=== PATIENT | female | born 1940 | race Caucasian/White ===

== ENCOUNTER 2024-05-07 14:39 | Observation (INO) | payer MEDICARE, SELFPAY ==
[2024-05-07] VITALS (13 sets, daily range): BP systolic 115–178; BP diastolic 54–96; BMI 23.4
--- NOTE | 2024-05-07 10:01 | ED.CVA ---
ED Provider Triage
<Kristin Kenny PA-C - Last Filed: 05/07/24 10:06>
-
Patient seen by provider in Triage?: Seen in Triage
Attestation: A medical screening examination has been initiated by a qualified medical provider. Based on the assessment performed at this time, it has been determined that an emergent medical condition may exist and the patient has been informed
that further medical evaluation and possible additional diagnostic testing may be needed.
HPI: 83yoF presenting after an episode of speech disturbance. Started at 8:45am. Was speaking with someone and couldn't get out her words. 'like a garbled mess.' Lasted about a minute. Now completely resolved. Last admitted in March 2023 for
afib. She was started on Eliquis at that time but she is no longer taking this. Also c/o URI symptoms since Monday.
GENERAL: Alert , in no apparent distress
EYE: No visual abnormalities.
NECK: Trachea midline
ENT: No visible abnormalities.
LUNGS: No acute respiratory distress
NEUROLOGICAL: Alert and oriented
SKIN: Skin intact. No visible changes.
MUSCULOSKELETAL: Moving extremities normally
PSYCH: Normal and appropriate interaction.
This is a medical evaluation conducted in person to initiate diagnostic evaluation and provide initial therapeutics. Please see further documentation by the treating clinician.
CBC, CMP, EKG, COVID/flu swab, and CT head ordered.
History of Present Illness
<Kristin Kenny PA-C - Last Filed: 05/07/24 10:06>
General
Chief Complaint: CVA/TIA Symptoms
Time Seen by Provider: 05/07/24 11:55
<Thor Weinstein MD - Last Filed: 05/08/24 08:34>
General
Source: patient and family
Exam Limitations: none
Nursing documentation reviewed up to this point in time: agreed with
Onset of Stroke Symptoms
Onset of symptoms known: Yes
Date of onset of symptoms: 05/07/24
History of Present Illness
History of Present Illness:
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
which occurred on 3 separate occasions, with spontaneous resolution. Denies headache. Denies difficulty swallowing. Denies dizziness. Denies blurred vision. Denies loss of sensation or weakness. Of note, patient states that she has had cough,
congestion, along with decreased appetite over the past 4 days. Denies nausea, vomiting, or diarrhea.
Past History
<Kristin Kenny PA-C - Last Filed: 05/07/24 10:06>
Past History
ED Past Medical History: CVA and HTN
ED Past Surgical History: Appendectomy, Gynecological and Tonsilectomy
Social History
Tobacco: Non-smoker
Alcohol: None
Drug: None
Personal:
Living: with family
Employment: Retired
Family History
Family History: Other (stroke in elderly grandparents)
Review of Systems
<Thor Weinstein MD - Last Filed: 05/08/24 08:34>
Review of Systems
Allergies reviewed?: Yes
All Other Systems: ROS reviewed and negative except as documented in HPI and ROS
Constitutional: Denies fever
EENT: Reports no symptoms
Respiratory: Reports cough and trouble breathing
Cardiac: Reports no symptoms; Denies chest pain, palpitations or syncope
ABD/GI: Reports no symptoms; Denies vomiting or diarrhea
Musculoskeletal: Reports no symptoms
Skin: Reports no symptoms
Neurological: Reports other (Garbled speech)
Phy Exam
<Thor Weinstein MD - Last Filed: 05/08/24 08:34>
Physical Exam
Physical Exam:
Physical Exam
General: no apparent distress, not acutely ill. afebrile.
Head: nc/at. eomi
Neck: supple. normal range of motion.
Heart: s1/s2 regular rate and rhythm, no murmur.
Lungs: no acute respiratory distress. clear bilaterally
Abdomen: normal bowel sounds. not tender.
Neuro: alert and oriented x 3. no focal sensory/motor deficit. normal speech.
Skin: no rash
Psychiatric: well kept. interactive and cooperative
Extremities: no edema. no calf tenderness.
Course
<Kristin Kenny PA-C - Last Filed: 05/07/24 10:06>
Orders/Labs/Results
Orders:
Orders
05/07/24 10:05
Electrocardiogram (*1) Urgent
Reason for Study: TIA/Stroke
CT Head W/o Iv Contrast Urgent
Comment:
Reason For Exam: Transient speech disturbance
EKG- Treatment ONCE
05/07/24 10:08
COVID-19 Antigen Urgent
Source: Nasal Swab
Complete Blood Count/With Diff Urgent
Comprehensive Metabolic Panel Urgent
NT-proBNP Urgent
Comment: ADD ON
Influenza A+B Rapid Molecular Urgent
OMKAR Source: Nasal Swab
Specimen Description:
05/07/24 12:18
CR Chest - 2 Views Urgent
Comment:
Reason For Exam: cough/sob, flu +
05/07/24 12:19
Add On- LAB Urgent
Tests Added?: ProBNP
05/07/24 13:05
NEUROLOGY CONSULT Urgent
Consulting Provider: Carey George
Was physician already notified: Yes
Reason for consult: slurred speech
05/07/24 13:22
Aspirin Chewable [Low Strength Aspirin] 81 mg PO NOW STA
Clopidogrel Bisulfate [Plavix] 300 mg PO NOW STA
05/07/24 13:47
Admit/Transfer Patient As Directed
Co-Sign Provider:
Level of Care: Observation services
Assign to:: Telemetry
Physician / Group: htay
Diagnosis: Acute Influenza A abnormal speech evaluation for TIA/CVA
Reason for Telemetry: CVA/TIA
Date to Stop Telemetry: 05/10/24
Time to Stop Telemetry: 11:00
Reason for Hospitalization: Acute Influenza A
abnormal speech evaluation for TIA/CVA
05/07/24 13:51
Code Status As Directed
Resuscitation Status: Full Code
05/07/24 14:05
Ipratropium/Albuterol Sulfate [Duoneb] 3 ml .ROUTE .STK-MED ONE
05/07/24 14:31
Ipratropium/Albuterol Sulfate [Duoneb] 3 ml INH R NOW ONE
05/07/24 14:48
DIETARY CONSULT Routine
Reason for Consult: stroke/TIA
05/07/24 17:23
Acetaminophen [Tylenol/Feverall] 650 mg RECTAL Q4HPRN PRN
Acetaminophen [Tylenol] 650 mg PO Q4HPRN PRN
Oseltamivir Phosphate [Tamiflu] 75 mg PO NOW STA
05/07/24 17:23
Case Management Consult ONCE
Case Management Consult: Discharge Planning
Comment: stroke/tia
Ceramics Teacher Urgent
Activity As Directed
Activity Level: With Assistance
NIH Stroke Scale As Directed
Directions: Per protocol
Comment: every shift and with any change in condition or mental status
Neurological Checks As Directed
Frequency: q4h
Additional Instructions:: q4h x 24h upon admission to the floor, then qshift & with any change in condition
and mental status
Patient Education As Directed
Type: Stroke education packet
Comment: provide to patient and family
Pneumatic Compression Sleeves As Directed
Type: Knee high
Vital Signs As Directed
Frequency: Per unit guidelines
Ot Eval And Treat Routine
Pt Eval And Treat Routine
Activity Level: Encourage Progressive Amb
Speech Therapy Eval & Treat Routine
DX Deep Vein Thrombosis Video Routine
05/07/24 17:57
Comprehensive Metabolic Panel Routine
Glycohemoglobin (HgbA1c) Routine
05/07/24 18:00
Atorvastatin [Lipitor] 40 mg PO QPM
05/08/24 07:40
Cardiovascular Evaluation IN AM
Complete Blood Count/No Diff IN AM
05/08/24 08:00
Amlodipine [Norvasc] 5 mg PO DAILY
Aspirin Chewable [Low Strength Aspirin] 81 mg PO DAILY
Clopidogrel Bisulfate [Plavix] 75 mg PO DAILY
Oseltamivir Phosphate [Tamiflu] 75 mg PO BID
05/10/24 11:00
DC Protocol for Telemetry ONCE
Abnormal Lab Results
05/07/24
10:08
MCH 31.7 H pg
(27.0-31.0)
MPV 11.3 H fL
(7.4-10.4)
Absolute Lymphs (auto) 0.7 L 10^3/uL
(1.2-3.4)
Neutrophils % 78.8 H %
(42.2-75.2)
Lymphocytes % 9.2 L %
(20.5-51.1)
BUN 20 H mg/dl
(7-17)
Glucose 109 H mg/dl
(70-99)
Calcium 8.3 L mg/dl
(8.4-10.2)
05/07/24 10:08
05/07/24 10:08
Vital Signs
Initial and Last Documented VS:
Initial Vital Signs
Temp Pulse Resp BP Pulse Ox
98.5 F 93 18 165/62 95
05/07/24 10:01 05/07/24 10:01 05/07/24 10:01 05/07/24 10:01 05/07/24 10:01
Last Documented Vital Signs
Temp Pulse Resp BP Pulse Ox
99.2 F 82 18 137/68 94
05/08/24 03:16 05/08/24 03:16 05/08/24 03:16 05/08/24 03:16 05/08/24 03:16
<Thor Weinstein MD - Last Filed: 05/08/24 08:34>
Orders/Labs/Results
Orders:
Orders
05/07/24 10:05
Electrocardiogram (*1) Urgent
Reason for Study: TIA/Stroke
CT Head W/o Iv Contrast Urgent
Comment:
Reason For Exam: Transient speech disturbance
EKG- Treatment ONCE
05/07/24 10:08
COVID-19 Antigen Urgent
Source: Nasal Swab
Complete Blood Count/With Diff Urgent
Comprehensive Metabolic Panel Urgent
NT-proBNP Urgent
Comment: ADD ON
Influenza A+B Rapid Molecular Urgent
OMKAR Source: Nasal Swab
Specimen Description:
05/07/24 12:18
CR Chest - 2 Views Urgent
Comment:
Reason For Exam: cough/sob, flu +
05/07/24 12:19
Add On- LAB Urgent
Tests Added?: ProBNP
05/07/24 13:05
NEUROLOGY CONSULT Urgent
Consulting Provider: Carey George
Was physician already notified: Yes
Reason for consult: slurred speech
05/07/24 13:22
Aspirin Chewable [Low Strength Aspirin] 81 mg PO NOW STA
Clopidogrel Bisulfate [Plavix] 300 mg PO NOW STA
05/07/24 13:47
Admit/Transfer Patient As Directed
Co-Sign Provider:
Level of Care: Observation services
Assign to:: Telemetry
Physician / Group: htay
Diagnosis: Acute Influenza A abnormal speech evaluation for TIA/CVA
Reason for Telemetry: CVA/TIA
Date to Stop Telemetry: 05/10/24
Time to Stop Telemetry: 11:00
Reason for Hospitalization: Acute Influenza A
abnormal speech evaluation for TIA/CVA
05/07/24 13:51
Code Status As Directed
Resuscitation Status: Full Code
05/07/24 14:05
Ipratropium/Albuterol Sulfate [Duoneb] 3 ml .ROUTE .STK-MED ONE
05/07/24 14:31
Ipratropium/Albuterol Sulfate [Duoneb] 3 ml INH R NOW ONE
05/07/24 14:48
DIETARY CONSULT Routine
Reason for Consult: stroke/TIA
05/07/24 17:23
Acetaminophen [Tylenol/Feverall] 650 mg RECTAL Q4HPRN PRN
Acetaminophen [Tylenol] 650 mg PO Q4HPRN PRN
Oseltamivir Phosphate [Tamiflu] 75 mg PO NOW STA
05/07/24 17:23
Case Management Consult ONCE
Case Management Consult: Discharge Planning
Comment: stroke/tia
Ceramics Teacher Urgent
Activity As Directed
Activity Level: With Assistance
NIH Stroke Scale As Directed
Directions: Per protocol
Comment: every shift and with any change in condition or mental status
Neurological Checks As Directed
Frequency: q4h
Additional Instructions:: q4h x 24h upon admission to the floor, then qshift & with any change in condition
and mental status
Patient Education As Directed
Type: Stroke education packet
Comment: provide to patient and family
Pneumatic Compression Sleeves As Directed
Type: Knee high
Vital Signs As Directed
Frequency: Per unit guidelines
Ot Eval And Treat Routine
Pt Eval And Treat Routine
Activity Level: Encourage Progressive Amb
Speech Therapy Eval & Treat Routine
DX Deep Vein Thrombosis Video Routine
05/07/24 17:57
Comprehensive Metabolic Panel Routine
Glycohemoglobin (HgbA1c) Routine
05/07/24 18:00
Atorvastatin [Lipitor] 40 mg PO QPM
05/08/24 07:40
Cardiovascular Evaluation IN AM
Complete Blood Count/No Diff IN AM
05/08/24 08:00
Amlodipine [Norvasc] 5 mg PO DAILY
Aspirin Chewable [Low Strength Aspirin] 81 mg PO DAILY
Clopidogrel Bisulfate [Plavix] 75 mg PO DAILY
Oseltamivir Phosphate [Tamiflu] 75 mg PO BID
05/10/24 11:00
DC Protocol for Telemetry ONCE
Abnormal Lab Results
05/07/24
10:08
MCH 31.7 H pg
(27.0-31.0)
MPV 11.3 H fL
(7.4-10.4)
Absolute Lymphs (auto) 0.7 L 10^3/uL
(1.2-3.4)
Neutrophils % 78.8 H %
(42.2-75.2)
Lymphocytes % 9.2 L %
(20.5-51.1)
BUN 20 H mg/dl
(7-17)
Glucose 109 H mg/dl
(70-99)
Calcium 8.3 L mg/dl
(8.4-10.2)
05/07/24 10:08
05/07/24 10:08
Vital Signs
Initial and Last Documented VS:
Initial Vital Signs
Temp Pulse Resp BP Pulse Ox
98.5 F 93 18 165/62 95
05/07/24 10:01 05/07/24 10:01 05/07/24 10:01 05/07/24 10:01 05/07/24 10:01
Last Documented Vital Signs
Temp Pulse Resp BP Pulse Ox
99.2 F 82 18 137/68 94
05/08/24 03:16 05/08/24 03:16 05/08/24 03:16 05/08/24 03:16 05/08/24 03:16
<Thor Weinstein MD - Last Filed: 05/08/24 08:34>
MDM/Problems Addressed
MDM/Problems Addressed:
History and exam concerning for potential recurrent TIA versus CVA, although symptoms can also be driven by current flulike symptoms.
Discussed with on-call neurology, who recommends admitting patient for further evaluation and treatment, and starting her on 81 mg aspirin and Plavix load 300 mg.
Patient remains asymptomatic during observation in ED.
<Thor Weinstein MD - Last Filed: 05/08/24 08:34>
*EKG
Interpreted by ED Provider?: Yes
EKG Intrepretation Date: 05/07/24
Heart Rate: 80
Rate: normal
Rhythm: sinus
[place]: left axis deviation
Interval: normal interval
QRS Pattern: left bundle branch block
*Critical Care Note
Total Time (30-74mins, 75-104mins- exclusive of procedures): Not Applicable
ED Attending Note
<Kristin Kenny PA-C - Last Filed: 05/07/24 10:06>
-
Portions of this chart may have been created with voice recognition software.� Occasional wrong word or��sound alike� substitutions may have occurred due to the inherent limitations of voice recognition software.
Discharge Plan
Departure
Patient Disposition: Admit
Date of Disposition: 05/07/24
Time of Disposition: 13:25
Admit to: Telemetry
Presentation/result/management discussed w/ accepting MD/DO: Hospitalist
Discharge Problem:
Influenza, Brain TIA
Interventions
Interventions:
*Risk Screen - Suicide Last Done: 05/07/24 21:07
*General Assessment Last Done: 05/07/24 10:01
*Neglect/Abuse Screening Last Done: 05/07/24 10:01
ED- Fall Risk Assessment Last Done: 05/07/24 20:37
*ED COVID-19 Vaccine History Last Done: 05/07/24 21:07
*Nursing Disposition Last Done: 05/07/24 20:37
ED- Pulmonary Assessment Last Done: 05/07/24 13:55
ED- Neurological Assessment Last Done: 05/07/24 16:42
ED- Cardiac Assessment Last Done: 05/07/24 13:55
ED Swallowing Screen Last Done: 05/07/24 13:30
Discharge Date and Time
Discharge Date/Time: 05/07/24 20:38
[2024-05-07 10:32] LABS: COVID-19 Antigen Negative (Negative)
[2024-05-07 10:33] LABS: % Basophils 0.5 % (0-2); % Eosinophils 2.9 % (0-6); % Immature Granulocytes 0.4 % (0-0.5); % Lymphocytes 9.2 % (20.5-51.1); % Monocytes 8.2 % (1.7-9.3); % Neutrophils 78.8 % (42.2-75.2); Absolute Eosinophils 0.2 10^3/uL (0-0.7); Absolute Lymphocytes 0.7 10^3/uL (1.2-3.4); Absolute Monocytes 0.6 10^3/uL (0.1-0.6); Absolute Neutrophils 5.9 10^3/uL (1.4-6.5); Hemoglobin 13.9 g/dL (12.0-16.0); Mean Corp Hgb Conc. 34.8 g/dL (33.0-37.0); Mean Corpuscular Hgb 31.7 pg (27.0-31.0); Mean Corpuscular Volume 91.1 fL (81.0-99.0); Mean Platelet Volume 11.3 fL (7.4-10.4); Nucleated Red Blood Cells % 0 %; Platelet Count 209 10^3/uL (130-400); Red Blood Cell Count 4.39 10^6/uL (4.20-5.40); Red Cell Dist. Width 13.4 % (11.5-14.5); White Blood Cell Count 7.5 10^3/uL (4.8-10.8)
[2024-05-07 10:46] LABS: ALT (SGPT) 16 U/L (0-35); AST (SGOT) 27 U/L (14-36); Alkaline Phosphatase 75 U/L (38-126); Blood Urea Nitrogen 20 mg/dl (7-17); Calcium 8.3 mg/dl (8.4-10.2); Carbon Dioxide 24 mmol/L (22-30); Chloride 99 mmol/L (98-107); Glucose 109 mg/dl (70-99); Potassium 3.8 mmol/L (3.5-5.1); Sodium 135 mmol/L (135-145); Total Bilirubin 1.3 mg/dl (0.2-1.3); Total Protein 6.8 g/dl (6.3-8.2); eGFR > 60.00
[2024-05-07] MEDS: PLAVIX 300 MG PO (13:41)
[2024-05-07] MEDS: LOW STRENGTH ASPIRIN 81 MG PO (13:41)
--- NOTE | 2024-05-07 13:41 | HPS.HSE ---
Family Physician
-
Family Physician: Kilo Webb PA-C
Chief Complaint
-
slurred speech , URTI symtoms
History of Present Illness
82F HX Prx AF on Eliquis , HTN, CVA with residual right lower leg weakness, currently NOT on any aspirin/Plavix, nor any AC seen at ER:
- sudden onset of 'garbled speech', while speaking to her friend at this morning,
- recurred on 3 separate occasions, with spontaneous resolution.
- she has had cough, congestion, along with decreased appetite over the past 4 days.
POS Flu A at ER
ROS
Denies headache. Denies difficulty swallowing. Denies dizziness. Denies blurred vision. Denies loss of sensation or weakness. Denies nausea, vomiting, or diarrhea.
Medical History
Past Medical History
Past Medical History: Reports Arrhythmia (Prx AF on Eliquis ), CVA and HTN
Past Surgical History: Reports Orthopedic (Recent left hip surgery)
Social History
Tobacco: Non-smoker
Alcohol: None
Drug: None
Personal:
Living: With Family
Employment: Retired
Family History
Family History: Not pertinent
Allergies / Home Medications
Allergies reflects when Allergies were last updated in [facility].
Home Medications with original date entered in [facility] [facility]
Allergy/Medication List:
Allergies
Allergy/AdvReac Type Severity Reaction Status Date / Time
Sulfa (Sulfonamide Allergy WEAKNESS Verified 03/23/23 04:40
Antibiotics)
Home Medications
cranberry vnwo-A-tdvkfjiz coag 450 mg-30 mg-50 million cell tablet (P[place]ozwgld-Iunjucnsu-[place]mb[place] C) 1 ea PO DAILY 11/20/20
amlodipine 2.5 mg tablet (Norvasc) 2.5 mg PO DAILY 03/23/23
aspirin 81 mg tablet 81 mg PO BID 03/23/23
nebivolol 5 mg tablet (Bystolic) 5 mg PO BID 03/23/23
Review of Systems
-
A 12 point ROS was completed and negative except as noted: Yes
Constitutional: Reports No Symptoms
EENT: Reports No Symptoms
Respiratory: Reports No Symptoms
Cardiac: Reports No Symptoms
Abdomen/GI: Reports No Symptoms
: Reports No Symptoms
Musculoskeletal: Reports No Symptoms
Skin: Reports No Symptoms
Neurological: Reports No Symptoms
Endocrine: Reports No Symptoms
Hematologic/Lymphatic: Reports No Symptoms
Psych: Reports No Symptoms
Physical Exam
Vital Signs
Vital Signs
Temp Pulse Resp BP Pulse Ox
98.5 F 93 18 170/63 95
05/07/24 10:01 05/07/24 10:01 05/07/24 10:01 05/07/24 12:46 05/07/24 12:47
Physical Exam
General: Well Developed, Well Nourished and No Apparent Distress
HEENT: NormoCephalic, Moist mucous membranes and Atraumatic
Respiratory: Clear
Cardiac: S1/S2 and Regular Rhythm; No Murmur or Rub
GI: Soft, Non Tender, Non Distended and Normal Bowel Sounds; No Organomegaly
Rectal: Deferred by Provider
Musculoskeletal: No Clubbing, No Cyanosis and No Edema
Skin: No Rash
Neuro: Nonfocal/grossly intact
Laboratory Results
-
05/07/24 10:08
05/07/24 10:08
Laboratory Results
Total Bilirubin 1.3 mg/dl (0.2-1.3) 05/07/24 10:08
AST 27 U/L (14-36) 05/07/24 10:08
ALT 16 U/L (0-35) 05/07/24 10:08
Alkaline Phosphatase 75 U/L (38-126) 05/07/24 10:08
Data Reviewed
-
Diagnostic Radiology: Other (pending CXR )
CT Scan: Report Reviewed by me
Lab Data: Labs Reviewed by me
Old Records: Reviewed
Impression/Plan
-
Data
Unremarkable Labs
Pending proBNP
POS Flu A
NEG Covid
Pending CXR
HCT
1. MILD ACUTE BILATERAL SPHENOID and RIGHT MAXILLARY SINUSITIS.
2. 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
3. Mild diffuse cerebral and cerebellar volume loss.
4. Mild Chiari I malformation.
Last hospitalist admission: Date of Admission: 03/23/23 - Date of Discharge: 03/24/23 DC Dx: New A Fib and started on Eliquis
ASSESSMENT & PLAN
Pending Rx reconciliation
Acute Influenza A with ongoing URI symptoms.
- afebrile , nl WCC
- Tamiflu
- supportive care
- Pending CXR
Unfortunately 3 episodes of slurred speech today, now resolved.
HX previous CVA with residual RLE weakness.
- DAPL
- Brain MRI
HX Prx AF on chr Eliquis
- cont. Eliquis
Systolic HTN
HX essential HTN
- cont [employer] Norvasc - increased to [address] of 2.5 mg daily
- c/w Bystolic
DVT Px: SCD
Full code
Obs TLM
[2024-05-07] MEDS: DUONEB 3 ML INH (14:32)
[2024-05-07 14:34] LABS: NT-proBNP 3340 pg/ml
--- NOTE | 2024-05-07 16:18 | CON.NEURO ---
Consultation
Order
Date of Consultation: 05/07/24
Requesting Provider: Thor Weinstein MD
Reason for Consult: slurred speech
Neurology Consultation Note.
HPI: This is an 83-year-old woman who presented to [facility] on 05/07/2024 with recurrent language dysfunction. According to the patient she had 1-2 minutes of transient dysarthria today around 8:45 am. No associated visual, motor,
sensory changes.
The patient states that she was taken off aspirin by her frame hand after ILR failed to show A-fib during for your monitoring. She has never reportedly started Eliqui
The patient has a family history of rheumatic fever in her mother, who developed a heart murmur and lived to 72 years old. Her father was a smoker from the age of 15 and developed emphysema at 55, which affected his heart and lungs; he also lived to
72 years old. Miss Steele is a non-smoker and non-drinker. She has had left hip surgery and an appendectomy in the past, as well as cataract surgery in both eyes three years ago.
The patient recently returned from a [place], during which she visited [place], [place], [place], and [place]. She is currently diagnosed with influenza, which may increase her risk of stroke.
VS by EMS: 171/87, 93, 96% on room air
ER VS: 165/62-170/63, 93, afebrile.
EKG:NSR
PDMP: no recently prescribed medication
Labs: Influenza A�positive,
CT head wo contrast-acute bilateral sphenoid and right maxillary sinusitis, Chiari I malformation, mild to moderate white matter leukoaraiosis in atrophy.
PMH: PAFib, left putamenal stroke(2016), R LE weakness, NSVT, AT, Hypertrophic cardiomyopathy, HTN, COPD, L1, L3 compression fracture
PSH: Left ARY, appendectomy, ILR (explanted)
SH: ; lives alone; non-smoker
All: Sulfas
ROS:Constitutional: Negative. Negative for chills, fever and unexpected weight change.
HENT: Negative for ear pain, hearing loss, tinnitus and trouble swallowing.
Eyes: Negative. Negative for photophobia, pain and visual disturbance.
Respiratory: Negative for cough, choking and shortness of breath.
Cardiovascular: Negative for chest pain, palpitations and leg swelling.
Gastrointestinal: Negative for abdominal pain and vomiting.
Endocrine: Negative. Negative for cold intolerance.
Genitourinary: Negative for dysuria, flank pain and urgency.
Musculoskeletal: Negative for back pain, gait problem, neck pain and neck stiffness.
Skin: Negative for rash.
Allergic/Immunologic: Negative. Negative for immunocompromised state.
Neurological: Negative for dizziness, tremors, seizures, speech difficulty, numbness and headaches.
Psychiatric/Behavioral: Negative for behavioral problems, confusion and hallucinations.
General: Well developed. In no acute distress.
Cardio: Regular rate and rhythm without murmur. Extremities are without cyanosis or edema.
Neuro:
Mental Status: Alert, oriented to person, place, and date. Normal attention and recall. Good fund of knowledge. Follows complex requests across the midline. Comprehension, naming, and repetition intact. Immediate and delayed recall 3/3.
Cranial Nerves: . Pupils are equally round and reactive to light. EOMs full. Visual chiu full to confrontation. No ptosis. No nystagmus. V1-V3 intact to light touch and pinprick bilaterally, symmetric. Face symmetric. Normal hearing AU.
The palate elevated well. SCMs and traps 5/5. Tongue midline. No dysarthria.
Motor: Normal bulk and tone. No pronator or arm drift. Strength 5/5 throughout. No clonus.
Reflexes: 2+ throughout the upper extremities and knees. 2/2 in AJs. Plantar responses flexor bilaterally.
Sensory: Normal pinprick, vibration and JPS.
Coordination: No dysmetria or tremor.
Gait: deferred
Assessment and Plan:
I. TIA
II. History of left putamenal stroke(2016)
III. PA A-Fib
IV. Influenza A
-Continue Telemetry monitoring.
-TTE with bubble studies
-Start ASA 81 mg QD indefinitely.
-Plavix 75 mg QD for 21 days.
-Please check HbA1C, LDL, ua tox, TFTs
-DVT prophylaxis.
I personally reviewed all radiology and labs along with past medical records pertinent to current medical problems. Total time spent in patient care is 64 minutes.
Thank you for allowing us to participate in the care of this patient. We will continue to follow. Please do not hesitate to contact us with any questions or concerns.
Subjective/Objective
Subjective Data
Date of Service: May 07, 2024
Objective Data
Vital Signs
Temp Pulse Resp BP Pulse Ox
36.9 C 93 18 170/63 96
05/07/24 10:01 05/07/24 10:01 05/07/24 10:01 05/07/24 12:46 05/07/24 13:55
Lab Results
05/07/24 10:08
05/07/24 10:08
Sodium 135 mmol/L (135-145) 05/07/24 10:08
Potassium 3.8 mmol/L (3.5-5.1) 05/07/24 10:08
BUN 20 mg/dl (7-17) H 05/07/24 10:08
Glucose 109 mg/dl (70-99) H 05/07/24 10:08
Calcium 8.3 mg/dl (8.4-10.2) L 05/07/24 10:08
Nom-X-Nospdplwhhq Pept 3340 pg/ml 05/07/24 10:08
Patient Allergies
Sulfa (Sulfonamide Antibiotics) Allergy (Verified 05/07/24 10:02)
WEAKNESS
Medications
-
Home Medications
�Medication �Instructions �Recorded
cranberry jtrz-J-eeppefmh coag 450 1 ea PO QPM Supplement 11/20/20
mg-30 mg-50 million cell tablet
(Ctmjfccve-Ayjgvimer-Pxdpqbh C)
amlodipine 2.5 mg tablet (Norvasc) 2.5 mg PO QPM Blood Pressure 03/23/23
nebivolol 10 mg tablet (Bystolic) 5 mg PO BID 05/07/24
Vital Signs and Labs
-
Vital Signs and Labs:
Vital Signs
Temp Pulse Resp BP Pulse Ox
36.9 C 93 18 170/63 96
05/07/24 10:01 05/07/24 10:01 05/07/24 10:01 05/07/24 12:46 05/07/24 13:55
Lab Results
05/07/24 10:08
05/07/24 10:08
Sodium 135 mmol/L (135-145) 05/07/24 10:08
Potassium 3.8 mmol/L (3.5-5.1) 05/07/24 10:08
BUN 20 mg/dl (7-17) H 05/07/24 10:08
Glucose 109 mg/dl (70-99) H 05/07/24 10:08
Calcium 8.3 mg/dl (8.4-10.2) L 05/07/24 10:08
Pla-Y-Qftslsquhvs Pept 3340 pg/ml 05/07/24 10:08
Home Medications
-
Home Medications
cranberry tzrl-U-ffccrxiq coag 450 mg-30 mg-50 million cell tablet (Kwkxxjael-Rfcsyrdis-Mblcsds C) 1 ea PO QPM Supplement 11/20/20
amlodipine 2.5 mg tablet (Norvasc) 2.5 mg PO QPM Blood Pressure 03/23/23
nebivolol 10 mg tablet (Bystolic) 5 mg PO BID 05/07/24
[2024-05-07] MEDS: TAMIFLU 75 MG PO (17:50)
[2024-05-07 18:32] LABS: ALT (SGPT) 17 U/L (0-35); AST (SGOT) 27 U/L (14-36); Albumin 3.7 g/dl (3.5-5.0); Alkaline Phosphatase 81 U/L (38-126); Blood Urea Nitrogen 18 mg/dl (7-17); Calcium 8.4 mg/dl (8.4-10.2); Carbon Dioxide 24 mmol/L (22-30); Chloride 98 mmol/L (98-107); Estimated Creatinine Clearance 58 ml/min; Glucose 135 mg/dl (70-99); Potassium 3.7 mmol/L (3.5-5.1); Sodium 133 mmol/L (135-145); Total Protein 6.5 g/dl (6.3-8.2); eGFR > 60.00
[2024-05-07 21:05] LABS: TSH Reflex To Free T4 0.97 uIU/ml (0.47-4.68)
[2024-05-08 03:16] VITALS: BP 137/68
[2024-05-08 06:35] VITALS: BMI 22.9
[2024-05-08 07:25] VITALS: BP 149/63
--- NOTE | 2024-05-08 07:34 | W.PN.HOSP.TC ---
Addendum entered and electronically signed by Johanna Manzano MD 05/08/24 16:15:
Total DC time 35 minutes
Addendum entered and electronically signed by Johanna Manzano MD 05/08/24 14:53:
I personally performed a history and physical exam of the patient and discussed management with the resident. I reviewed the resident's note and agree with the documented findings and plan of care HPI/CC.
A/P:
# Acute Influenza
Tamiflu was started, okay to continue course for 5 days
# Slurred speech, likely TIA related to acute infection/influenza, resolved
# HX previous CVA with residual RLE weakness.
MRI brain without acute intracranial abnormality noted.
Patient was started with aspirin and Plavix, she is okay to take aspirin but refused Plavix.
Echo with bubble recommended by cardiology, however patient refused
No new neurologic deficits, okay for DC
Original Note:
Today's Communication/Plan
-
Brain MRI pending
continue ASA, statin
Assessment / Plan
Assessment / Plan
Impression:
Assessment/Plan:
#Acute Influenza
- afebrile , nl WCC
- Continue Tamiflu, supportive care
- CXR: Mild bilateral lung hyperinflation suggesting chronic obstructive pulmonary disease, 7 mm opacity in the peripheral right upper lobe (possibly scarring or a small pulmonary nodule)
#Slurred speech-?TIA
#HX previous CVA with residual RLE weakness.
- neurology consulted, input appreciated
- Patient started on ASA, statin but is refusing plavix
-Patient refused bubble study
- Brain MRI no acute intracranial abnormality
#HX Prx AF
-Patient states that she has not been on eliquis recently and that she 'has not needed it'
-Has link monitor and pt states that she has not had any afib and denies any chronic afib history
- follows with associate web developer
#Essential HTN
- cont Norvasc, bystolic
Discussed with patient about necessity of anticoagulation for stroke prevention and dangers of declining treatment. Also discussed about reasoning for bubble study. Patient understands and patient refused both Plavix and bubble study.
DVT Px: SCD
Full code
Anticipated Discharge: 24 - 48 hours
Subjective/Interval History
-
Date of Service: May 08, 2024
Patient was feel fine with morning with no reported new weakness.
Objective Data
-
Labs:
Laboratory Results
05/08/24
06:00
WBC Pending
Hgb Pending
Hct Pending
Plt Count Pending
Vital Signs:
Vital Signs
Temp Pulse Resp BP Pulse Ox
99.2 F 82 18 137/68 94
05/08/24 03:16 05/08/24 03:16 05/08/24 03:16 05/08/24 03:16 05/08/24 03:16
I&O
05/07/24 05/08/24 05/09/24
06:59 06:59 06:59
Intake Total 480 / 480
Balance 480 / 480
Review of Systems
-
All other systems: Reviewed and negative
Physical Exam
-
General: No Apparent Distress
HEENT: Normocephalic
Respiratory: Clear to Auscultation
Cardiac: Regular Rhythm and S1/S2; Negative Murmur
GI: Soft, Nontender and Nondistended
Musculoskeletal: No Edema and Other (mild rle weakness from prior stroke)
Skin: Warm and Dry
Neuro: Awake, Alert and Oriented; Negative Slurred Speech or Facial Droop
Psych: Calm
[2024-05-08 08:18] LABS: Hematocrit 37.4 % (37.0-47.0); Mean Corp Hgb Conc. 34.8 g/dL (33.0-37.0); Mean Corpuscular Volume 89.3 fL (81.0-99.0); Platelet Count 192 10^3/uL (130-400); Red Blood Cell Count 4.19 10^6/uL (4.20-5.40); Red Cell Dist. Width 13.2 % (11.5-14.5); White Blood Cell Count 6.4 10^3/uL (4.8-10.8)
[2024-05-08] MEDS: LOW STRENGTH ASPIRIN 81 MG PO (08:44)
[2024-05-08] MEDS: NORVASC 5 MG PO (08:44)
[2024-05-08] MEDS: TAMIFLU 75 MG PO (08:44)
[2024-05-08 08:50] LABS: HDL Cholesterol 49 mg/dl; LDL Cholesterol, Calculated 77 mg/dl; Total Cholesterol 139 mg/dl (50-199); Triglyceride 68 mg/dl (10-149); Very Low Density Lipoprotein 13 mg/dl (0-30)
[2024-05-08 09:03] LABS: Glycohemoglobin (HgbA1c) 5.7 % (4.0-5.6)
[2024-05-08] MEDS: BYSTOLIC 5 MG PO (09:17)
[2024-05-08 09:23] VITALS: BP 182/82; O2SAT 97
[2024-05-08 09:25] VITALS: BP 182/76; PULSE 82; O2SAT 97
--- NOTE | 2024-05-08 09:28 | PTOTSP ---
Speech Therapy Evaluation:
Pt exhibits oropharyngeal swallow that is grossly WFL. Pt with no s/sx of aspiration across PO trials. Pt passed 3oz swallow screen, WBC WBL. Pt at increased risk of aspiration with CXR that was suggestive of chronic COPD and history of CVA,
compounded by decreased coordination of breathing/swallow in the setting of Flu. Pt undergoing stroke workup with MRI pending. TAPE CUTTER to follow.
Recommend:
1. Continue IDDIS Level 7 (regular) solids and thin liquids
2. Medications as tolerated
3. General aspiration precautions
4. TAPE CUTTER to follow pending results of imaging - likely brief
--- NOTE | 2024-05-08 09:56 | W.PN.NEURO.1 ---
Today's Communication / Plan
-
.
Subjective/Objective
Subjective Data
Date of Service: May 08, 2024
Neurology follow-up note
Ms. Cobb reports no recurrent episodes of dysarthria. She denies having new motor, visual or sensory symptoms. Blood pressure has improved. Continues to be afebrile. Brain MRI/TTE are pending
Labs: LDL�77, hemoglobin A1c�5.7
CT head wo contrast-acute bilateral sphenoid and right maxillary sinusitis, Chiari I malformation, mild to moderate white matter leukoaraiosis in atrophy.
PMH: PAFib, left putamenal stroke(2016), R LE weakness, NSVT, AT, Hypertrophic cardiomyopathy, HTN, COPD, L1, L3 compression fracture
PSH: Left ARY, appendectomy, ILR (explanted)
SH: ; lives alone; non-smoker
All: Sulfas
ROS:Constitutional: Negative. Negative for chills, fever and unexpected weight change.
HENT: Negative for ear pain, hearing loss, tinnitus and trouble swallowing.
Eyes: Negative. Negative for photophobia, pain and visual disturbance.
Respiratory: Negative for cough, choking and shortness of breath.
Cardiovascular: Negative for chest pain, palpitations and leg swelling.
Gastrointestinal: Negative for abdominal pain and vomiting.
Endocrine: Negative. Negative for cold intolerance.
Genitourinary: Negative for dysuria, flank pain and urgency.
Musculoskeletal: Positive for chronic right arm pain will be
Skin: Negative for rash.
Allergic/Immunologic: Negative. Negative for immunocompromised state.
Neurological: Negative for dizziness, tremors, seizures, speech difficulty, numbness and headaches.
Psychiatric/Behavioral: Negative for behavioral problems, confusion and hallucinations.
General: Well developed. In no acute distress.
Cardio: Regular rate and rhythm without murmur. Extremities are without cyanosis or edema.
Neuro:
Mental Status: Alert, oriented to person, place, and date. Normal attention and recall. Good fund of knowledge. Follows complex requests across the midline. Comprehension, naming, and repetition intact. Immediate and delayed recall 3/3.
Cranial Nerves: . Pupils are equally round and reactive to light. EOMs full. Visual chiu full to confrontation. No ptosis. No nystagmus. V1-V3 intact to light touch and pinprick bilaterally, symmetric. Face symmetric. Normal hearing AU.
The palate elevated well. SCMs and traps 5/5. Tongue midline. No dysarthria.
Motor: Normal bulk and tone. No pronator or arm drift. Strength 5/5 throughout except for pain related proximal right arm chronic weakness. No clonus.
Reflexes: 2+ throughout the upper extremities and knees. 2/2 in AJs. Plantar responses flexor bilaterally.
Sensory: Normal vibration and JPS.
Coordination: No dysmetria or tremor.
Gait: deferred
Assessment and Plan:
I. TIA
II. History of left putamenal stroke(2016)
III. History of A-Fib(neg ILS monitoring for 4 years)
IV. Influenza A
V. R rotator cuff syndrome/
-Continue Telemetry monitoring.
-TTE with bubble studies
-Continue ASA 81 mg QD indefinitely.
-Plavix 75 mg QD for 21 days.
-Lipitor 40 mg nightly.
-PT for R arm weakness, shoulder pain
-DVT prophylaxis.
I personally reviewed all radiology and labs along with past medical records pertinent to current medical problems. Total time spent in patient care is 35 minutes.
Thank you for allowing us to participate in the care of this patient. We will continue to follow. Please do not hesitate to contact us with any questions or concerns.
Objective Data
Vital Signs
Temp Pulse Resp BP Pulse Ox
36.8 C 73 16 149/63 93
05/08/24 07:25 05/08/24 07:25 05/08/24 07:25 05/08/24 07:25 05/08/24 07:25
Lab Results
05/08/24 07:40
05/07/24 17:57
Sodium 133 mmol/L (135-145) L 05/07/24 17:57
Potassium 3.7 mmol/L (3.5-5.1) 05/07/24 17:57
BUN 18 mg/dl (7-17) H 05/07/24 17:57
Glucose 135 mg/dl (70-99) H 05/07/24 17:57
Calcium 8.4 mg/dl (8.4-10.2) 05/07/24 17:57
Tgr-L-Lbwwgjkuthn Pept 3340 pg/ml 05/07/24 10:08
LDL Cholesterol, Calc 77 mg/dl 05/08/24 07:40
Patient Allergies
Sulfa (Sulfonamide Antibiotics) Allergy (Verified 05/07/24 10:02)
WEAKNESS
Vital Signs and Labs
-
Vital Signs and Labs:
Vital Signs
Temp Pulse Resp BP Pulse Ox
36.8 C 73 16 149/63 93
05/08/24 07:25 05/08/24 07:25 05/08/24 07:25 05/08/24 07:25 05/08/24 07:25
Lab Results
05/08/24 07:40
05/07/24 17:57
Sodium 133 mmol/L (135-145) L 05/07/24 17:57
Potassium 3.7 mmol/L (3.5-5.1) 05/07/24 17:57
BUN 18 mg/dl (7-17) H 05/07/24 17:57
Glucose 135 mg/dl (70-99) H 05/07/24 17:57
Calcium 8.4 mg/dl (8.4-10.2) 05/07/24 17:57
Wze-I-Nladwunxhkl Pept 3340 pg/ml 05/07/24 10:08
LDL Cholesterol, Calc 77 mg/dl 05/08/24 07:40
Medications
-
Medications:
Generic Name Dose Route Start Last Admin
Trade Name Freq PRN Reason Stop Dose Admin
Acetaminophen 650 mg 05/07/24 17:23
Acetaminophen 650 Mg Rectal Suppository RECTAL 06/04/24 17:22
Q4HPRN PRN
AARON, mild pain, or temp >100.4F
Acetaminophen 650 mg 05/07/24 17:23
Acetaminophen 325 Mg Tablet PO 06/04/24 17:22
Q4HPRN PRN
AARON, mild pain, or temp >100.4F
Amlodipine Besylate 5 mg 05/08/24 08:00 05/08/24 08:44
Amlodipine 5 Mg Tablet PO 06/05/24 07:59 5 mg
DAILY OSMIN Administration
Aspirin 81 mg 05/08/24 08:00 05/08/24 08:44
Aspirin 81 Mg Chewable Tablet PO 06/05/24 07:59 81 mg
DAILY OSMIN Administration
Atorvastatin Calcium 40 mg 05/07/24 18:00 05/07/24 17:50
Atorvastatin (Lipitor) 40 Mg Tablet PO 06/04/24 17:59 Not Given
QPM OSMIN
Clopidogrel Bisulfate 75 mg 05/08/24 08:00 05/08/24 08:49
Clopidogrel 75 Mg Tablet PO 06/05/24 07:59 Not Given
DAILY OSMIN
Nebivolol 5 mg 05/08/24 09:15 05/08/24 09:17
Nebivolol Hcl 2.5 Mg Tablet PO 06/05/24 09:14 5 mg
BID OSMIN Administration
Oseltamivir Phosphate 75 mg 05/08/24 08:00 05/08/24 08:44
Oseltamivir (Tamiflu) 75 Mg Capsule PO 05/13/24 07:59 75 mg
BID OSMIN Administration
Sodium Chloride 0 flush 05/07/24 18:00
Sodium Chloride 0.9% (Flush) Syringe IV 06/04/24 17:59
PER PROTOCOL OSMIN
Home Medications
-
Home Medications
cranberry zkqj-K-blejlork coag 450 mg-30 mg-50 million cell tablet (Jqlgwhpkh-Sfctnkopo-Aserxdv C) 1 ea PO QPM Supplement 11/20/20
amlodipine 2.5 mg tablet (Norvasc) 2.5 mg PO QPM Blood Pressure 03/23/23
nebivolol 10 mg tablet (Bystolic) 5 mg PO BID Blood Pressure 05/07/24
--- NOTE | 2024-05-08 10:06 | PTCARENOTE ---
Patient refusing Plavix. Resident made aware.
[2024-05-08 10:07] VITALS: BMI 22.9
[2024-05-08 11:20] VITALS: BP 119/55
--- NOTE | 2024-05-08 12:48 | CM ---
Addendum entered by Genoveva Lomeli RN 05/08/24 14:55:
Patient being discharged to home today. Patient's daughter to provide transportation.
Original Note:
Reviewed the chart notes and spoke with the patient at the bedside. [facility] letter provided and explained. The patient had no questions with regards to the letter.
The patient was recently discharged from (03/23-03/24) for a-fib. The patient resides alone in a three story home with one step to enter. The patient reports no DME/VN/SNF in the past. The patient confirmed her pharmacy of choice is the [facility] for one type use medications and her pcp is Dr. Brandy Webb. CM continues to be available to patient/family and is monitoring medical plan for needs at discharge.
Plan: Discharge to home once medically stable. No needs anticipated at this time.
--- NOTE | 2024-05-08 14:44 | W.DCSUMMARY ---
Documented by User: Denisa Marley MD, Resident 05/08/24 14:53
Discharge Summary
Discharge Data
Date of Admission: 05/07/24
Date of Discharge: 05/08/24
-
Pending Results: No
Hospital Course
Discharging Physician : ,
Disposition : Home
Primary care physician : Kilo Webb PA-C
Principal Discharge diagnosis : Transient Ischemic Attack
Chronic Discharge diagnosis : History of Prior Cardiovascular Accident, Hypertension, Paroxysmal Atrial Fibrillation
Hospital Course : This is a 83-year-old female patient with PMH with history of CVA, hypertension, hx paroxysmal atrial fibrillation who presented to the ED with concerns of slurred speech. She had symptoms of upper respiratory tract infection for
which she was positive for flu and started on Tamiflu. Head CT was negative. Neurology was consulted. Patient was recommended to start on aspirin, statin Plavix and have bubble study done. Patient refused Plavix and bubble study after
discussions explaining why treatment was necessary. Brain MRI had no acute abnormality. Patient's symptoms had resolved likely due to TIA and she was stable for discharge. Patient to be followed up by PCP in a week.
Important imaging findings :
05/07/[address]: 1. Mild acute bilateral sphenoid and right maxillary sinusitis.
2. 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
3. Mild diffuse cerebral and cerebellar volume loss.
4. Mild Chiari I malformation.
05/07/2024 CXR:1. Mild bilateral lung hyperinflation suggesting chronic obstructive pulmonary disease (COPD).
2. Mild scarring in both lower lungs.
3. 7 mm opacity in the peripheral right upper lobe (possibly scarring or a small pulmonary nodule).
4. 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
05/08/2024 brain MRI: No acute intracranial abnormality noted
Discharge Plan
-
Patient Disposition: Home (Routine Discharge)
Discharge Diagnosis/Procedures: Transient Ischemic Attack
Influenza infection
History of Prior Cardiovascular Accident
Hypertension
Paroxysmal Atrial Fibrillation
Condition: Fair
Diet: Low Cholesterol
Activity: As tolerated
Driving Restrictions: As prior to admission
Bathing Restrictions: OK to Shower
Activity Restrictions/Additional Instructions:
Follow up with PCP within a week.
Referrals:
Kilo Webb PA-C [Family Provider] - in one week
Additional Discharge Medication Instructions: Your Norvasc dose was increased from 2.5 mg to 5 mg for better blood pressure control
Prescriptions:
New
atorvastatin 40 mg Tablet
40 mg PO QPM 30 Days Qty: 30 0RF
aspirin 81 mg Tablet,Chewable
81 mg PO DAILY 30 Days Qty: 30 0RF
amlodipine 5 mg Tablet
5 mg PO DAILY 30 Days Qty: 30 0RF
oseltamivir 75 mg Capsule
75 mg PO BID 4 Days Qty: 8 0RF
Continued
Soblzjmfp-Rtvloabdn-Wkjlxnz C 1 EACH tablet
1 ea PO QPM
nebivolol [Bystolic] 10 mg tablet
5 mg PO BID
Discontinued
amlodipine [Norvasc] 2.5 mg Tablet
2.5 mg PO QPM
Discharge Orders:
Discharge Patient (As Directed); Ordered 05/08/24
Ordered By: Denisa Marley
Discharge Date and Time
Print Language: HUNGARIAN

Documented by User: Johanna Manzano MD 05/08/24 16:15
Discharge Summary
Discharge Data
Date of Admission: 05/07/24
Date of Discharge: 05/08/24
Hospital Course
Discharging Physician : ,
Disposition : Home
Primary care physician : Kilo Webb PA-C
Principal Discharge diagnosis : Transient Ischemic Attack likely related to influenza infection
Chronic Discharge diagnosis : History of Prior Cardiovascular Accident, Hypertension, Paroxysmal Atrial Fibrillation
Hospital Course : This is a 83-year-old female patient with past medical history as stated above, who presented with slurred speech, which has resolved during hospital stay. She had upper respiratory tract symptoms and was tested positive for flu
and was started on Tamiflu. She can complete Tamiflu outpatient x [address] head and MRI brain were negative. Neurology recommended dual antiplatelet with aspirin and Plavix, however patient only willing to take aspirin and not Plavix.
2D echo with bubble recommended by neuro but the patient declined the study. Her prior to admission Norvasc was increased from 2.5 to 5 mg for better BP control.
Important imaging findings :
05/07/[address]: 1. Mild acute bilateral sphenoid and right maxillary sinusitis.
2. 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
3. Mild diffuse cerebral and cerebellar volume loss.
4. Mild Chiari I malformation.
05/07/2024 CXR:1. Mild bilateral lung hyperinflation suggesting chronic obstructive pulmonary disease (COPD).
2. Mild scarring in both lower lungs.
3. 7 mm opacity in the peripheral right upper lobe (possibly scarring or a small pulmonary nodule).
4. 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
05/08/2024 brain MRI: No acute intracranial abnormality noted
Discharge Plan
-
Patient Disposition: Home (Routine Discharge)
Discharge Diagnosis/Procedures: Transient Ischemic Attack
Influenza infection
History of Prior Cardiovascular Accident
Hypertension
Paroxysmal Atrial Fibrillation
Condition: Fair
Diet: Low Cholesterol
Activity: As tolerated
Driving Restrictions: As prior to admission
Bathing Restrictions: OK to Shower
Activity Restrictions/Additional Instructions:
Follow up with PCP within a week.
Referrals:
Kilo Webb PA-C [Family Provider] - in one week
Additional Discharge Medication Instructions: Your Norvasc dose was increased from 2.5 mg to 5 mg for better blood pressure control
Prescriptions:
New
atorvastatin 40 mg Tablet
40 mg PO QPM 30 Days Qty: 30 0RF
aspirin 81 mg Tablet,Chewable
81 mg PO DAILY 30 Days Qty: 30 0RF
amlodipine 5 mg Tablet
5 mg PO DAILY 30 Days Qty: 30 0RF
oseltamivir 75 mg Capsule
75 mg PO BID 4 Days Qty: 8 0RF
Continued
Glmcxakwq-Iaeyudhlf-Qzzpejp C 1 EACH tablet
1 ea PO QPM
nebivolol [Bystolic] 10 mg tablet
5 mg PO BID
Discontinued
amlodipine [Norvasc] 2.5 mg Tablet
2.5 mg PO QPM
Discharge Orders:
Discharge Patient (As Directed); Ordered 05/08/24
Ordered By: Denisa Marley
Discharge Date and Time
Print Language: HUNGARIAN
--- NOTE | 2024-05-08 14:56 | PTCARENOTE ---
Patient refusing bubble study. made aware.
[2024-05-08 15:30] VITALS: BP 154/62
--- NOTE | 2024-05-08 15:47 | W.PN.UPDATE ---
Update Note
Progress Note Update
Brain MRI results have been reviewed. Ms. Cobb has declined recommended transthoracic echo.
Dr. George
== END 2024-05-08 17:29 | disposition home or self-care (01) ==
LOC: 2 NORTH 14:39
PROVIDERS: Physician Assistant; Student in an Organized Health Care Education/Training Program; ADMITTING PHYSICIAN Internal Medicine; ATTENDING PHYSICIAN Internal Medicine; CONSULT PHYSICIAN Psychiatry & Neurology Neurology; EMERGENCY PHYSICIAN Emergency Medicine; FAMILY PHYSICIAN Physician Assistant Medical
DX: G45.9 Transient cerebral ischemic attack, unspecified (principal); J10.1 Influenza due to other identified influenza virus with other respiratory manifestations; R47.9 Unspecified speech disturbances; J01.00 Acute maxillary sinusitis, unspecified; G93.5 Compression of brain; I48.0 Paroxysmal atrial fibrillation; I69.341 Monoplegia of lower limb following cerebral infarction affecting right dominant side; I10 Essential (primary) hypertension; J44.9 Chronic obstructive pulmonary disease, unspecified; I42.2 Other hypertrophic cardiomyopathy; M48.56XA Collapsed vertebra, not elsewhere classified, lumbar region, initial encounter for fracture; I67.81 Acute cerebrovascular insufficiency; Z90.49 Acquired absence of other specified parts of digestive tract; Z82.3 Family history of stroke; Z88.2 Allergy status to sulfonamides; Z11.52 Encounter for screening for COVID-19; Z60.2 Problems related to living alone
CPT/HCPCS: 70450; 70551; 71046; 80053; 80061; 83036; 83880; 84443; 85025; 85027; 87502; 87811; 92610; 93005; 97162; 97166; 99285; G0378

== ENCOUNTER 2024-05-23 18:06 | Observation (INO) | payer MEDICARE, SELFPAY ==
[2024-05-23 12:08] VITALS: BP 118/80
[2024-05-23 12:28] LABS: % Basophils 0.6 % (0-2); % Immature Granulocytes 0.3 % (0-0.5); % Lymphocytes 12.6 % (20.5-51.1); % Monocytes 5.2 % (1.7-9.3); % Neutrophils 81.3 % (42.2-75.2); Absolute Basophils 0.1 10^3/uL (0-0.2); Absolute Lymphocytes 1.2 10^3/uL (1.2-3.4); Absolute Monocytes 0.5 10^3/uL (0.1-0.6); Absolute Neutrophils 7.7 10^3/uL (1.4-6.5); Hematocrit 41.3 % (37.0-47.0); Hemoglobin 13.8 g/dL (12.0-16.0); Mean Corp Hgb Conc. 33.4 g/dL (33.0-37.0); Mean Corpuscular Hgb 30.5 pg (27.0-31.0); Mean Corpuscular Volume 91.4 fL (81.0-99.0); Mean Platelet Volume 10.4 fL (7.4-10.4); Nucleated Red Blood Cells % 0 %; Platelet Count 294 10^3/uL (130-400); Red Blood Cell Count 4.52 10^6/uL (4.20-5.40); Red Cell Dist. Width 13.5 % (11.5-14.5); White Blood Cell Count 9.4 10^3/uL (4.8-10.8)
[2024-05-23 13:44] LABS: ALT (SGPT) 12 U/L (0-35); AST (SGOT) 21 U/L (14-36); Albumin 4.1 g/dl (3.5-5.0); Alkaline Phosphatase 90 U/L (38-126); Blood Urea Nitrogen 21 mg/dl (7-17); Calcium 8.7 mg/dl (8.4-10.2); Carbon Dioxide 23 mmol/L (22-30); Chloride 99 mmol/L (98-107); Glucose 101 mg/dl (70-99); Potassium 4.6 mmol/L (3.5-5.1); Sodium 134 mmol/L (135-145); Total Bilirubin 0.9 mg/dl (0.2-1.3); Total Protein 7.2 g/dl (6.3-8.2); eGFR > 60.00
[2024-05-23 15:11] VITALS: BP 195/59
[2024-05-23 16:00] VITALS: BP 163/53
--- NOTE | 2024-05-23 16:10 | ED.GENMED ---
History of Present Illness
<Cheryl Herrera PA-C - Last Filed: 05/23/24 18:29>
General
Chief Complaint: Fainting Sensation
Source: patient
Exam Limitations: none
Time Seen by Provider: 05/23/24 15:10
Nursing documentation reviewed up to this point in time: agreed with
History of Present Illness
History of Present Illness:
This is a 83-year-old female with past medical history of questionable A-fib versus a flutter, hypertension, stroke, TIA who presents emergency department with intermittent episodes of lightheadedness. Patient reports that she has had
lightheadedness on and off for several years. She reports that her episodes will come on with exertion and states that when she feels this way, the episodes usually last a few seconds. Patient reports that she will pause walking, grab onto
something, any symptoms will eventually resolved. She has no associated dizziness or room spinning sensation no double vision, no nausea or vomiting. She notes no changes to her gait. She states that she will get these episodes multiple times a
week but notes that today, her episode lasted longer, lasting minutes and took longer to resolve. She had to sit down. Patient states that this is a close if she has ever been to losing consciousness. She denies any chest pain or shortness of
breath. She is completely asymptomatic now. This occurred when she was at the grocery store and bystanders alerted EMS. She reports that she followed with Dr. Taylor and had a Linq placed however this device has and is no longer functional.
Past History
<Cheryl Herrera PA-C - Last Filed: 05/23/24 18:29>
Past History
ED Past Medical History: CVA and HTN
ED Past Surgical History: Appendectomy, Gynecological and Tonsilectomy
Social History
Tobacco: Non-smoker
Alcohol: None
Drug: None
Personal:
Living: with family
Employment: Retired
Family History
Family History: Other (stroke in elderly grandparents)
Review of Systems
<Cheryl Herrera PA-C - Last Filed: 05/23/24 18:29>
Review of Systems
All Other Systems: ROS reviewed and negative except as documented in HPI and ROS
Phy Exam
<Cheryl Herrera PA-C - Last Filed: 05/23/24 18:29>
Physical Exam
Physical Exam:
General: Patient is well appearing and in no acute distress; non-toxic
Skin: Warm and dry, no rashes or lesions
Head: Normocephalic, atraumatic
Eyes: Sclera non-icteric. EOMs intact.
Cardiac: Regular rate and rhythm, no murmur
Peripheral Vascular: No lower extremity swelling or edema
Pulm: Normal respiratory effort
Abdomen: No abdominal tenderness
Neuro: CN II-XII intact, no focal neurologic deficits. Normal finger-nose, [id number]
Psychiatric: Appropriate mood and affect.
Course
<Cheryl Herrera PA-C - Last Filed: 05/23/24 18:29>
Orders/Labs/Results
Orders:
Orders
05/23/24 12:10
Electrocardiogram (*1) Urgent
Reason for Study: Vertigo / Dizzy
EKG- Treatment ONCE
05/23/24 12:19
Complete Blood Count/With Diff Urgent
Comprehensive Metabolic Panel Urgent
05/23/24 15:12
Orthostatic VS- Treatment ONCE
05/23/24 16:55
CARDIOLOGY CONSULT Routine
Consulting Provider: Sherman Young
Was physician already notified: Yes
Reason for consult: Exertional lightheadedness
05/23/24 17:40
Admit/Transfer Patient As Directed
Co-Sign Provider:
Level of Care: Observation services
Assign to:: Telemetry
Physician / Group: Con[facility]
Diagnosis: lightheadedness
Reason for Telemetry: Arrhythmia
Date to Stop Telemetry: 05/26/24
Time to Stop Telemetry: 11:00
PRN Pain Medication Management As Directed
May give lesser potent ordered pain med per pt: Yes
preference::
Protocol:: Medication orders for pain may be administered in a
manner that supports deferring to patient preference
when the pt is:
- Requesting an ordered lesser potent pain medication.
Least to most potent pain medications are defined
as: acetaminophen < NSAID < tramadol < opioids
(morphine, oxycodone, hydromorphone).
- Requesting a lesser dose of the same medication IF
ORDERED.
- Requesting a less intrusive route of administration
if both routes are prescribed by the provider (PO <
IV).
05/23/24 17:41
Code Status As Directed
Resuscitation Status: Do not resuscitate
Reached after discussion with pt or family/Healthcare POA: Yes
DNR Bracelet Application ONCE
05/26/24 11:00
DC Protocol for Telemetry ONCE
Abnormal Lab Results
05/23/24
12:19
Absolute Neuts (auto) 7.7 H 10^3/uL
(1.4-6.5)
Neutrophils % 81.3 H %
(42.2-75.2)
Lymphocytes % 12.6 L %
(20.5-51.1)
Sodium 134 L mmol/L
(135-145)
BUN 21 H mg/dl
(7-17)
Glucose 101 H mg/dl
(70-99)
05/23/24 12:19
05/23/24 12:19
Vital Signs
Initial and Last Documented VS:
Initial Vital Signs
Temp Pulse Resp BP Pulse Ox
97.6 F 84 16 118/80 99
05/23/24 12:08 05/23/24 12:08 05/23/24 12:08 05/23/24 12:08 05/23/24 12:08
Last Documented Vital Signs
Temp Pulse Resp BP Pulse Ox
97.6 F 67 21 163/53 97
05/23/24 12:08 05/23/24 16:30 05/23/24 16:30 05/23/24 16:00 05/23/24 16:30
<Russell Mansfield, - Last Filed: 05/23/24 18:07>
Orders/Labs/Results
Orders:
Orders
05/23/24 12:10
Electrocardiogram (*1) Urgent
Reason for Study: Vertigo / Dizzy
EKG- Treatment ONCE
05/23/24 12:19
Complete Blood Count/With Diff Urgent
Comprehensive Metabolic Panel Urgent
05/23/24 15:12
Orthostatic VS- Treatment ONCE
05/23/24 16:55
CARDIOLOGY CONSULT Routine
Consulting Provider: Sherman Young
Was physician already notified: Yes
Reason for consult: Exertional lightheadedness
05/23/24 17:40
Admit/Transfer Patient As Directed
Co-Sign Provider:
Level of Care: Observation services
Assign to:: Telemetry
Physician / Group: Concha
Diagnosis: lightheadedness
Reason for Telemetry: Arrhythmia
Date to Stop Telemetry: 05/26/24
Time to Stop Telemetry: 11:00
PRN Pain Medication Management As Directed
May give lesser potent ordered pain med per pt: Yes
preference::
Protocol:: Medication orders for pain may be administered in a
manner that supports deferring to patient preference
when the pt is:
- Requesting an ordered lesser potent pain medication.
Least to most potent pain medications are defined
as: acetaminophen < NSAID < tramadol < opioids
(morphine, oxycodone, hydromorphone).
- Requesting a lesser dose of the same medication IF
ORDERED.
- Requesting a less intrusive route of administration
if both routes are prescribed by the provider (PO <
IV).
05/23/24 17:41
Code Status As Directed
Resuscitation Status: Do not resuscitate
Reached after discussion with pt or family/Healthcare POA: Yes
DNR Bracelet Application ONCE
05/26/24 11:00
DC Protocol for Telemetry ONCE
Abnormal Lab Results
05/23/24
12:19
Absolute Neuts (auto) 7.7 H 10^3/uL
(1.4-6.5)
Neutrophils % 81.3 H %
(42.2-75.2)
Lymphocytes % 12.6 L %
(20.5-51.1)
Sodium 134 L mmol/L
(135-145)
BUN 21 H mg/dl
(7-17)
Glucose 101 H mg/dl
(70-99)
05/23/24 12:19
05/23/24 12:19
Vital Signs
Initial and Last Documented VS:
Initial Vital Signs
Temp Pulse Resp BP Pulse Ox
97.6 F 84 16 118/80 99
05/23/24 12:08 05/23/24 12:08 05/23/24 12:08 05/23/24 12:08 05/23/24 12:08
Last Documented Vital Signs
Temp Pulse Resp BP Pulse Ox
97.6 F 67 21 163/53 97
05/23/24 12:08 05/23/24 16:30 05/23/24 16:30 05/23/24 16:00 05/23/24 16:30
<Cheryl Herrera PA-C - Last Filed: 05/23/24 18:29>
MDM/Problems Addressed
Differential Diagnosis Includes:
Differentials include cardiac arrhythmia, CVA, orthostatic hypotension, electrolyte derangement, symptomatic anemia
MDM/Problems Addressed:
This is a 83-year-old female with a past medical history of A-fib, hypertension, CVA presents emergency department today with concerns of a presyncopal episode. She has had this on and off for multiple years but notes that today it is the most
severe its ever been. Review of previous records with my attending, we have sent note from cardiology when she had a Linq device placed and he found that her syncopal episodes at the time were associated with nonsustained runs of V. tach. She was
paced on ablative josé manuel which seemed to help her symptoms. She states that her symptoms have returned and are worse. In light of feeling also showing atrial tachycardia as well, we feel it is safe and in patient's best interest to keep for
telemetry monitoring. Case discussed with hospitalist and cardiology. Patient referred for admission.
Chronic conditions affecting care:
CVA, hypertension, hyperlipidemia
<Cheryl Herrera PA-C - Last Filed: 05/23/24 18:29>
*Pulse Oximetry
Patient hypoxic: no
*Critical Care Note
Total Time (30-74mins, 75-104mins- exclusive of procedures): Not Applicable
Data Reviewed
Review of Other/Old Records Reveals: Records (Reviewed discharge summary from 05/08/2024, reviewed cardiology note from 2020 reviewed Linq report)
Source: patient and records
<Cheryl Herrera PA-C - Last Filed: 05/23/24 18:29>
Patient Management
Escalation/DeEscalation of care consider admission/obs:
Reviewed with my attending, patient referred for admission
ED Attending Note
<Cheryl Herrera PA-C - Last Filed: 05/23/24 18:29>
-
Portions of this chart may have been created with voice recognition software.� Occasional wrong word or��sound alike� substitutions may have occurred due to the inherent limitations of voice recognition software.
<Russell Mansfield DO - Last Filed: 05/23/24 18:07>
ED Attending Note
Patient seen and examined by attending physician: Yes
I performed the substantive portion of visit, reviewed & personally made and approve the management plan that is documented in note by myself or HARI.: Yes
ED Attending Note:
I agree with Hope's note
Patient presents with episodes of feeling lightheaded as if she might pass out. She has them occasionally but today they seem more severe more persistent. No symptoms now. No chest pain.
General: Awake, Alert, Oriented X3. No acute distress.
Vitals: unremarkable
Head: Atraumatic
Eyes: Pupils equal, EOMI
Throat: Airway intact, no exudates
Neck: Trachea midline
Lungs: Clear and equal b/l
Heart: Regular rate, no murmurs
Neuro: Nonfocal
EKG: Sinus rhythm, left bundle branch block
Patient presents with what sounds to be presyncope or near syncope. Workup here in the emergency room is reassuring. Reviewing patient's records she did have monitoring in the past which showed a significant mount of ectopy and some short runs of
V. tach. Patient's symptoms are likely noncardiac in origin but feel that given this history we will observe her overnight to make sure there is no evidence of dysrhythmia.
Discharge Plan
Departure
Patient Disposition: Admit
Date of Disposition: 05/23/24
Time of Disposition: 16:23
Admit to: Telemetry
Presentation/result/management discussed w/ accepting MD/DO: Hospitalist
Condition: Fair
Discharge Problem:
Pre-syncope
Interventions
Interventions:
*Risk Screen - Suicide Last Done: 05/23/24 12:08
*General Assessment Last Done: 05/23/24 12:08
*Neglect/Abuse Screening Last Done: 05/23/24 12:08
ED- Fall Risk Assessment Last Done: 05/23/24 15:21
*ED COVID-19 Vaccine History Last Done: 05/23/24 12:08
ED- Cardiac Assessment Last Done: 05/23/24 15:21
ED- Neurological Assessment Last Done: 05/23/24 15:21
--- NOTE | 2024-05-23 16:44 | HPS.HSE ---
Family Physician
-
Family Physician: Kilo Webb PA-C
Chief Complaint
-
Near syncope
History of Present Illness
83 y/o F with PMHx:
TIA
CVA with residual RLE weakness
PAF (remote past, nonrecurrent)
Essential HTN
who p/w CC near syncope. The patient has had multiple near syncopal episodes over the last 8 years. She had a Linq device that was active from 8 years ago to 4 years ago. The battery has but it is still in place. Yesterday the patient had a
near syncopal episode. Today she had a few near syncopal episodes, one was at her primary care physician's office and then she had another at the local grocery store. EMS was called. With these episodes she has never had palpitations, chest pain,
shortness of breath, nausea, vomiting, diaphoresis. Her only symptom is lightheadedness.
Medical History
Past Medical History
Past Medical History: Reports Other (TIA CVA with residual RLE weakness PAF (remote past, nonrecurrent) Essential HTN)
Past Surgical History: Reports Other (N/A)
Social History
Tobacco: Non-smoker
Alcohol: None
Drug: None
Family History
Family History: Not pertinent
Allergies / Home Medications
Allergies reflects when Allergies were last updated in [facility].
Home Medications with original date entered in [facility]
Allergy/Medication List:
Allergies
Allergy/AdvReac Type Severity Reaction Status Date / Time
Sulfa (Sulfonamide Allergy WEAKNESS Verified 05/23/24 12:10
Antibiotics)
Home Medications
amlodipine 5 mg tablet 5 mg PO QPM Blood pressure 05/23/24
ascorbic acid (vitamin C) 500 mg tablet (Vitamin C) 500 mg PO QPM 05/23/24
cholecalciferol (vitamin D3) 25 mcg (1,000 unit) tablet (Vitamin D3) 25 mcg PO QPM 05/23/24
cranberry 500 mg capsule 500 mg PO QPM 05/23/24
nebivolol 5 mg tablet (Bystolic) 5 mg PO BID 05/23/24
zinc sulfate 50 mg zinc (220 mg) tablet 50 mg PO QPM 05/23/24
Review of Systems
-
History Source: Patient
A 12 point ROS was completed and negative except as noted: Yes
Physical Exam
Vital Signs
Vital Signs
Temp Pulse Resp BP Pulse Ox
97.6 F 67 21 163/53 97
05/23/24 12:08 05/23/24 16:30 05/23/24 16:30 05/23/24 16:00 05/23/24 16:30
Physical Exam
General: Other (.)
Laboratory Results
-
05/23/24 12:19
05/23/24 12:19
Laboratory Results
Total Bilirubin 0.9 mg/dl (0.2-1.3) 05/23/24 12:19
AST 21 U/L (14-36) 05/23/24 12:19
ALT 12 U/L (0-35) 05/23/24 12:19
Alkaline Phosphatase 90 U/L (38-126) 05/23/24 12:19
Impression/Plan
-
Gen: NAD, AAOx3.
Eyes: EOMI, PERRLA, no scleral icterus.
Neck: supple.
CV: RRR, +S1/S2, no m/r/g.
Resp: CTAB, no rales, wheezes, or rhonchi.
Abd: +BS, soft, NT, ND
Skin: No rashes.
Neuro: CN 2-12 intact, non-focal.
Psych: Normal mood and affect.
ECG (read by me): NSR @ 69, L-axis, LBBB, unchanged from prior
MRI brain 05/08/24: No acute intracranial abnormality noted.
Exertional lightheadedness:
-Patient has had near syncopal episodes for many years but today the patient's symptoms persisted longer than usual
-h/o Linq which showed A-tach and NSVT
-recent admission for acute influenza and TIA. At that time refused Plavix and refused echo with bubble study.
-check echo with bubble study
-check orthostatic VS (as per discussion with Dr. Young pt's SBP did drop from 180 to 140 with tilt)
-monitor on tele
Other problems:
h/o PAF: cont BB
Essential HTN: Cont BB/norvasc
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
DNR - confirmed with the pt in the ER
Lovenox
--- NOTE | 2024-05-23 16:58 | CON.CAR ---
Addendum entered and electronically signed by Sherman Young DO 05/23/24 18:12:
I saw and examined the patient.
The Marine Engineering Consultant's note was reviewed and I agree with the note.
Comment:
HPI: Patient came to ER today after episodes of near syncope and appearing unsteady the bystander at a local supermarket the patient is now being admitted with near syncope and orthostasis. Patient has a more distant history of NSVT seen on
monitor in 2020 and also a history of hypertrophic cardiomyopathy and orthostasis. A previous Linq monitor has been at end of service for years but while in place had no substantial bradycardia or arrhythmias noted. At the time of NSVT seen on
monitoring in 2020 the patient was admitted to and had cardiac catheterization that showed nonobstructive CAD. Most recently the patient has been following with Dr. Taylor once a year and at her last visit on 07/20/2023 noted an episode of
vasovagal near syncope while in [employer] and this overall seems similar to previous episodes. Her BP in the office that day was 136/64 and she is taking amlodipine 2.5 mg at bedtime. Patient was admitted to 05/07/2024 until 05/08/2024 with possible
TIA and had symptoms of slurred speech in the setting of influenza. MRI of the brain was unremarkable at that time. Patient saw her PCP in the office today and BP was 140/86 initially and on recheck had improved to 128/66. Patient did not report
any lightheadedness, but when talking with me in the ER today she noted that yesterday she had an episode of near syncope that was worse than usual describing it as more intense and lasting longer than her typical episodes. After she left the PCP
office she reported near syncope while walking down the ramp and the symptoms continued when she drove herself to the grocery store and stood up from the car to walk into the store. Then while standing in a store her symptoms became worse and she
was noted to be wobbly by bystanders and was sent to ER. No loss of consciousness.
Plan:
She has HTN but did have drop in BP with standing. May need to accept some level of permissive hypertension if she continues to be orthostatic
Check echo
Trend troponin
Cont tele monitor
Consider outpt monitor given arrhythmia hx. She has refused anticoagulation in the past.
Outpt monitor
Discussed conservative measures to reduce risk of near syncope including avoiding prolonged sitting and standint and maintaining hydration.
She refused echo and Plavix during recent admit for Flu and TIA.
Discussed with ER, primary service and son at bedside.
outpt follow up with Dr Taylor
Original Note:
Consultation
Consultation Request
Date/Time Consultation Requested: 05/23/2024
Date/Time Consultation Performed: 05/23/2024
Requesting Provider: Cheryl Herrera PA-C
Performing Provider: Dr. Young
Reason for Consultation: Near syncope
Medical History
-
Chief Complaint: palpitations
History of Present Illness:
Patient came to ER today after episodes of near syncope and appearing unsteady the bystander at a local supermarket the patient is now being admitted with near syncope and orthostasis. Patient has a more distant history of NSVT seen on monitor
in 2020 and also a history of hypertrophic cardiomyopathy and orthostasis. A previous Linq monitor has been at end of service for years but while in place had no substantial bradycardia or arrhythmias noted. At the time of NSVT seen on monitoring
in 2020 the patient was admitted to and had cardiac catheterization that showed nonobstructive CAD. Most recently the patient has been following with Dr. Taylor once a year and at her last visit on 07/20/2023 noted an episode of vasovagal near
syncope while in [employer] and this overall seems similar to previous episodes. Her BP in the office that day was 136/64 and she is taking amlodipine 2.5 mg at bedtime. Patient was admitted to 05/07/2024 until 05/08/2024 with possible TIA and had
symptoms of slurred speech in the setting of influenza. MRI of the brain was unremarkable at that time. Patient saw her PCP in the office today and BP was 140/86 initially and on recheck had improved to 128/66. Patient did not report any
lightheadedness, but when talking with me in the ER today she noted that yesterday she had an episode of near syncope that was worse than usual describing it as more intense and lasting longer than her typical episodes. After she left the PCP
office she reported near syncope while walking down the ramp and the symptoms continued when she drove herself to the grocery store and stood up from the car to walk into the store. Then while standing in a store her symptoms became worse and she
was noted to be wobbly by bystanders and was sent to ER. No loss of consciousness.
PMH:
Paroxysmal atrial fibrillation
s/p LTHA 02/20
NSVT seen on CAM monitor 11/19/20
Paroxysmal atrial tachycardia
Hypertrophic cardiomyopathy
Orthostatic hypotension
Hypertension
h/o syncope
h/o CVA treated with tPA 2015
h/o Linq monitor
Left bundle-branch block
Hypercholesterolemia, not on statin therapy
Poorly tolerant of metoprolol and verapamil
Severe MR seen on cath 11/23/20
Past Medical History
Past Medical History: Arrhythmias (Nonsustained ventricular tachycardia and atrial tachycardia), CVA (TIA), HTN and Other (Hypertrophic cardiomyopathy, moderate mitral regurgitation)
Past Surgical History: Appendectomy and Orthopedic (L BRITNI 02/20)
Social History
Tobacco: Non-Smoker
Alcohol: None
Drug: None
Personal:
Living: Alone
Family History
Family History: Hypertension
Allergies / Home Medications
Allergy/AdvReac Type Severity Reaction Status Date / Time
Sulfa (Sulfonamide Allergy WEAKNESS Verified 05/23/24 12:10
Antibiotics)
�Medication �Instructions �Recorded �Confirmed �Type
amlodipine 5 mg tablet 5 mg PO QPM Blood pressure 05/23/24 05/23/24 History
ascorbic acid (vitamin C) 500 mg 500 mg PO QPM 05/23/24 05/23/24 History
tablet (Vitamin C)
cholecalciferol (vitamin D3) 25 25 mcg PO QPM 05/23/24 05/23/24 History
mcg (1,000 unit) tablet (Vitamin
D3)
cranberry 500 mg capsule 500 mg PO QPM 05/23/24 05/23/24 History
nebivolol 5 mg tablet (Bystolic) 5 mg PO BID 05/23/24 05/23/24 History
zinc sulfate 50 mg zinc (220 mg) 50 mg PO QPM 05/23/24 05/23/24 History
tablet
Review of Systems
-
History Source: Patient and Family (son sitting bedside helping with HPI)
All other systems: Negative unless noted
Physical Exam
Vital Signs
Temp Pulse Resp BP Pulse Ox
97.6 F 67 21 163/53 97
05/23/24 12:08 05/23/24 16:30 05/23/24 16:30 05/23/24 16:00 05/23/24 16:30
GEN: No distress, awake, alert and oriented x3
HEENT: EOMI, MMM
LUNGS: RA. CTA B/L, no wheezes or rales
CV: Reg, S1/S2, 2/6 syst LSB
ABD: soft, BS+, NT, ND
EXT: No clubbing, cyanosis, lesions or edema B/L
NEURO: Gross non-focal
SKIN: Warm, dry and pink. No rash
Orthostatic VS performed by me as follows:
Supine BP 184/66 HR 72 asymptomatic
Sitting BP 180/69 HR 78 asymptomatic
Standing BP 145/70 HR 83 asymptomatic
Lab Results
05/23/24 12:19
05/23/24 12:19
Impression / Plan
-
PCP: Dr. Webb
Cardiology: Dr. LINNEA Taylor
Impression:
Presented with near syncopal episode 05/23/24
Paroxysmal atrial fibrillation
Recent admission for TIA 05/07/2024
NSVT seen on CAM monitor 11/19/20
Paroxysmal atrial tachycardia
Hypertrophic cardiomyopathy
Orthostatic hypotension
Hypertension
h/o syncope
h/o CVA treated with tPA 2015
h/o Linq monitor
Left bundle-branch block
Hypercholesterolemia, not on statin therapy
Poorly tolerant of metoprolol and verapamil
Severe MR seen on cath 11/23/20
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
Echo 01/14/2019: Small left ventricle, EF 60-65%, LVOT gradient 7 mm at rest up to 25 mmHg with Valsalva, 46 mmHg standing and 52 mmHg standing with Valsalva, chordal Tra, mild mitral regurgitation, pulmonary artery systolic pressure 30-35 mmHg
Echo 11/24/2020: EF 60%, LVOT gradient 7 mmHg at rest and 12 mmHg with Valsalva, lying down, stage I diastolic dysfunction, moderate MR
Echo 03/24/2023: EF 60 to 65%, no LV outflow tract gradient, mild to moderate MR and normal LA, normal right heart with moderate TR and PAP 53 mmHg
Plan:
-Patient came to ER today after episodes of near syncope and appearing unsteady the bystander at a local supermarket the patient is now being admitted with near syncope and orthostasis. Patient has a more distant history of NSVT seen on monitor
in 2020 and also a history of hypertrophic cardiomyopathy and orthostasis. A previous Linq monitor has been at end of service for years but while in place had no substantial bradycardia or arrhythmias noted. At the time of NSVT seen on monitoring
in 2020 the patient was admitted to and had cardiac catheterization that showed nonobstructive CAD. Most recently the patient has been following with Dr. Taylor once a year and at her last visit on 07/20/2023 noted an episode of vasovagal near
syncope while in [employer] and this overall seems similar to previous episodes. Her BP in the office that day was 136/64 and she is taking amlodipine 2.5 mg at bedtime. Patient was admitted to 05/07/2024 until 05/08/2024 with possible TIA and had
symptoms of slurred speech in the setting of influenza. MRI of the brain was unremarkable at that time. Patient saw her PCP in the office today and BP was 140/86 initially and on recheck had improved to 128/66. Patient did not report any
lightheadedness, but when talking with me in the ER today she noted that yesterday she had an episode of near syncope that was worse than usual describing it as more intense and lasting longer than her typical episodes. After she left the PCP
office she reported near syncope while walking down the ramp and the symptoms continued when she drove herself to the grocery store and stood up from the car to walk into the store. Then while standing in a store her symptoms became worse and she
was noted to be wobbly by bystanders and was sent to ER. No loss of consciousness.
-ECG reviewed by me shows NSR with known LBBB
-Orthostatic vital signs performed by me as noted above show a drop in blood pressure from 184/66 supine down to 145/70 standing but patient was asymptomatic.
-Patient with a history of vasovagal syncope, orthostasis and hypertrophic cardiomyopathy and these are the most likely reasons for her symptoms. Patient did however have recent admission for possible TIA and no longer has a functioning Linq
monitor, so monitoring including an outpatient 14-day CAM monitor will be helpful in looking for any arrhythmia as a cause of her symptoms.
-We could consider eliminating her dose of amlodipine, but run the risk of supine hypertension. Given that patient is asymptomatic would not start midodrine at this time.
-Check echo
[2024-05-23 19:41] VITALS: BP 120/66; BP 178/71; BP 186/75; PULSE 68; PULSE 70; PULSE 95; BMI 24.1
[2024-05-23] MEDS: BYSTOLIC 5 MG PO (20:05)
[2024-05-23] MEDS: LOVENOX SC ×2 (20:05→20:26)
[2024-05-23] MEDS: NORVASC 5 MG PO (20:05)
--- NOTE | 2024-05-23 22:00 | TRANSFER ---
Pt admitted from ED to room 403-1. Pt AAOx3. VSS. Pt was able to ambulate from stretcher to bed with no assistance. Pt oriented to room, call ibarra placed within reach.
[2024-05-23 23:19] VITALS: BP 147/57
[2024-05-24] VITALS (12 sets, daily range): BP systolic 110–171; BP diastolic 51–75; PULSE 66–84
[2024-05-24] MEDS: BYSTOLIC 5 MG PO (07:47)
--- NOTE | 2024-05-24 09:32 | W.PN.HOSP.TC ---
Today's Communication/Plan
-
see bold
Assessment / Plan
Assessment / Plan
Gen: NAD, AAOx3.
Eyes: EOMI, PERRLA, no scleral icterus.
Neck: supple.
CV: RRR, +S1/S2, no m/r/g.
Resp: CTAB, no rales, wheezes, or rhonchi.
Abd: +BS, soft, NT, ND
Skin: No rashes.
Neuro: CN 2-12 intact, non-focal.
Psych: Normal mood and affect.
ECG (read by me): NSR @ 69, L-axis, LBBB, unchanged from prior
MRI brain 05/08/24: No acute intracranial abnormality noted.
Echo:
1. Left ventricle: Normal size with mild concentric left ventricular
hypertrophy. The estimated ejection fraction is 54% by volumetric assessment.
Normal diastolic function
2. Right ventricle: Normal
3. Atria: Normal
4. Mitral valve: Moderate mitral regurgitation
5. Aortic valve: Trileaflet. No aortic insufficiency
6. Tricuspid valve: Moderate tricuspid regurgitation. Estimated pulmonary
artery systolic pressures of 30-35 mmHg
7. When compared to the most recent echocardiogram from 03/20/2023 there has
been no significant change. LV function is normal. Estimated degree of mitral
regurgitation is moderate and was felt to be mild to moderate on the prior
study and estimated pulmonary artery pressures are 30-35 mmHg and were
estimated at 53 mmHg on the prior study
Exertional lightheadedness:
-Patient has had near syncopal episodes for many years but today the patient's symptoms persisted longer than usual
-h/o Linq which showed A-tach and NSVT
-recent admission for acute influenza and TIA. At that time refused Plavix and refused echo with bubble study.
-echo above
-orthostatic VS POS
-as per cards, concern for NSVT on tele, for cath today
Other problems:
h/o PAF: cont BB
Essential HTN: Cont BB/norvasc
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
DNR - confirmed with the pt in the ER
Lovenox
Anticipated Discharge: Within 24 hours
Subjective/Interval History
-
Date of Service: May 24, 2024
Objective Data
-
Vital Signs:
Vital Signs
Temp Pulse Resp BP Pulse Ox
97.8 F 66 18 161/60 98
05/24/24 07:20 05/24/24 07:20 05/24/24 07:20 05/24/24 07:20 05/24/24 07:52
I&O
05/23/24 05/24/24 05/25/24
06:59 06:59 06:59
Intake Total 240 / 240 240 / 240
Balance 240 / 240 240 / 240
--- NOTE | 2024-05-24 10:48 | W.PN.CARDCBS ---
Addendum entered and electronically signed by Angel Luis Caldwell MD 05/24/24 15:24:
Attending addendum: Patient seen and examined. Discussions held with EP who felt that left heart catheterization is recommended given runs of NSVT. I met with and described risk and benefit of coronary angiography and patient in agreement. Will
proceed with left heart catheterization. Will give aspirin 324 mg. Attempt left radial approach. Further management decisions to be made after angiogram completed
Original Note:
Today's Communication / Plan
-
Stop nebivolol and start Toprol 25mg daily
For [facility] today to assess given NSVT
Await echo results
Impression / Plan
-
PCP: Dr. Webb
Cardiology: Dr. LINNEA Taylor
Impression:
Presented with near syncopal episode 05/23/24
Paroxysmal atrial fibrillation, 1 episode 03/2023, refused AC
Recent admission for TIA 05/07/2024
NSVT seen on CAM monitor 11/19/20
Paroxysmal atrial tachycardia
Hypertrophic cardiomyopathy
Orthostatic hypotension
Hypertension
h/o syncope
h/o CVA treated with tPA 2015
h/o Linq monitor
Left bundle-branch block
Hypercholesterolemia, not on statin therapy
Poorly tolerant of metoprolol and verapamil
Severe MR seen on cath 11/23/20
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
Echo 01/14/2019: Small left ventricle, EF 60-65%, LVOT gradient 7 mm at rest up to 25 mmHg with Valsalva, 46 mmHg standing and 52 mmHg standing with Valsalva, chordal Tra, mild mitral regurgitation, pulmonary artery systolic pressure 30-35 mmHg
Echo 11/24/2020: EF 60%, LVOT gradient 7 mmHg at rest and 12 mmHg with Valsalva, lying down, stage I diastolic dysfunction, moderate MR
Echo 03/24/2023: EF 60 to 65%, no LV outflow tract gradient, mild to moderate MR and normal LA, normal right heart with moderate TR and PAP 53 mmHg
Echo 05/24/2024: Study completed, report pending.
Plan:
-Presented after near syncopal episode. Orthostatic in ER with BP dropping from 184/66 to 145/70.
-Continues w/ positional dizziness this AM. Remains orthostatic with BP dropping from 161/60 supine to 110/59 standing in AM 05/24.
-Notes worsening of her symptoms since dose recently increased during hospitalization for possible TIA 05/07 to 05/08/2024.
-Hold off on midodrine given supine hypertension.
-Echo completed 05/24. Report pending.
-She has h/o NSVT on prior monitor in 2020 and had LHC at the time with nonobstructive coronary disease.
-Frequent runs of NSVT noted on tele this morning, up to approx 20 seconds at a time. Mostly asymptomatic other than some dizziness. Denies any palpitations. She has had no anginal symptoms and denies any chest pain.
-Will plan for LHC today to re-evaluate coronary anatomy given frequent runs of NSVT which has not been noted since 2020.
-Will stop nebivolol and start Toprol 25mg daily.
-Of note, on prior LHC there was concern for severe MR. Most recent echo 03/2023 noted only mild-moderate MR. Await echo results. May consider SANTHOSH if appears more severe.
-Further recommendations to be made following cardiac cath.
HPI: Patient came to ER today after episodes of near syncope and appearing unsteady noted by bystander at a local supermarket the patient is now being admitted with near syncope and orthostasis. Patient has a more distant history of NSVT seen on
monitor in 2020 and also a history of hypertrophic cardiomyopathy and orthostasis. A previous Linq monitor has been at end of service for years but while in place had no substantial bradycardia or arrhythmias noted. At the time of NSVT seen on
monitoring in 2020 the patient was admitted to and had cardiac catheterization that showed nonobstructive CAD. Most recently the patient has been following with Dr. Taylor once a year and at her last visit on 07/20/2023 noted an episode of
vasovagal near syncope while in [employer] and this overall seems similar to previous episodes. Her BP in the office that day was 136/64 and she is taking amlodipine 2.5 mg at bedtime. Patient was admitted to 05/07/2024 until 05/08/2024 with possible
TIA and had symptoms of slurred speech in the setting of influenza. MRI of the brain was unremarkable at that time. Patient saw her PCP in the office today and BP was 140/86 initially and on recheck had improved to 128/66. Patient did not report
any lightheadedness, but when talking with me in the ER today she noted that yesterday she had an episode of near syncope that was worse than usual describing it as more intense and lasting longer than her typical episodes. After she left the PCP
office she reported near syncope while walking down the ramp and the symptoms continued when she drove herself to the grocery store and stood up from the car to walk into the store. Then while standing in a store her symptoms became worse and she
was noted to be wobbly by bystanders and was sent to ER. No loss of consciousness.
Progress Note - Client Technical Specialist
Subjective
Date of Service: May 24, 2024
No chest pain. Does have some dizziness w/ position change, but feels this is mild compared to episode yesterday.
Objective
Labs:
05/23/24 12:19
05/23/24 12:19
Labs
Hgb 13.8 g/dL (12.0-16.0) 05/23/24 12:19
Hct 41.3 % (37.0-47.0) 05/23/24 12:19
Plt Count 294 10^3/uL (130-400) 05/23/24 12:19
Sodium 134 mmol/L (135-145) L 05/23/24 12:19
Potassium 4.6 mmol/L (3.5-5.1) 05/23/24 12:19
BUN 21 mg/dl (7-17) H 05/23/24 12:19
Creatinine 0.8 mg/dL (0.6-1.0) 05/23/24 12:19
Glucose 101 mg/dl (70-99) H 05/23/24 12:19
Vital Signs and I&O:
Vital Signs
Temp Pulse Resp BP Pulse Ox
97.8 F 66 18 161/60 98
05/24/24 07:20 05/24/24 07:20 05/24/24 07:20 05/24/24 07:20 05/24/24 07:52
Vital Signs
Temp Pulse Resp BP Pulse Ox
97.8 F 66 18 161/60 98
05/24/24 07:20 05/24/24 07:20 05/24/24 07:20 05/24/24 07:20 05/24/24 07:52
Intake & Output
05/22/24 05/23/24 05/24/24 05/25/24
06:59 06:59 06:59 06:59
Intake Total 240 / 240 240 / 240
Balance 240 / 240 240 / 240
Physical Exam
Physical Exam
GEN: No distress, awake, alert and oriented x3
HEENT: EOMI, MMM
LUNGS: CTA B/L, no wheezes or rales
CV: Reg, S1/S2, 2/6 syst LSB
EXT: No clubbing, cyanosis, lesions or edema B/L
NEURO: Gross non-focal
SKIN: Warm, dry and pink. No rash
[2024-05-24] MEDS: LOW STRENGTH ASPIRIN 324 MG PO (14:45)
--- NOTE | 2024-05-24 15:59 | ITS.CL.CATH ---
Sheet Metal Welder - Catheterization
Cardiac Catheterization
Procedure Report:
LEFT HEART CATHETERIZATION
Date of Procedure: May 24, 2024
Referring: Dr. Angel Luis Taylor
PROCEDURES:
1. Left heart catheterization with coronary and single-plane left ventriculography
INDICATION: Sustained ventricular tachycardia
ACCESS: Left radial artery, 5 Hungarian sheath
HEMODYNAMICS : (mmHg)
AO (s/d) : 141/63, 95
LV (s/d) : 141/9
LVEDP : 18
CORONARY FINDINGS
DOMINANCE: Right
LEFT MAIN: Normal
LEFT ANTERIOR DESCENDING: The LAD arises normally from the left main and runs in the anterior interventricular groove. The LAD is widely patent
CIRCUMFLEX: Moderate caliber nondominant vessel is widely patent
RIGHT CORONARY ARTERY: The right coronary artery is a dominant vessel that has only minor luminal irregularities
VENTRICULOGRAPHY: Left ventriculography is performed in an RM projection. At the digital single-plane left ventricular ejection fraction is estimated at 70% with 3+ mitral regurgitation
RADIATION SUMMARY: Fluoro Time (min): 3.4, Dose (mGy): 82.7, DAP (Gy.cm2) : 7.1
Closure Device: TR band
CONCLUSIONS
1. Normal coronary arteries
2. Hyperdynamic left ventricle with +3 mitral regurgitation
Copy to: Dr. Angel Luis Taylor
--- NOTE | 2024-05-24 16:18 | PTCARENOTE ---
Received patient from Bookkeeping Clerk s/p cardiac cath. Left radial band noted, + pulse. Call ibarra in reach.
--- NOTE | 2024-05-24 16:33 | CM ---
Alert awake oriented patient who lives alone in a 2 story home with 1 step to enter and 12 steps to bed and bathroom. He is independent in driving and in all activities of daily living.He was offered VN he declined need.[facility] letter given explained
copy on chart . Pt did not want to sign.
No VN hx / No SNF history
Pharmacy [place]
PCP DR Webb
PLAN Home Declined VN
[2024-05-24] MEDS: NORVASC 5 MG PO (17:16)
[2024-05-24] MEDS: LOVENOX 40 MG SC (17:16)
[2024-05-25] VITALS: BP 164/63
[2024-05-25 03:10] VITALS: BP 154/66
[2024-05-25 07:18] LABS: Hematocrit 39.6 % (37.0-47.0); Hemoglobin 13.8 g/dL (12.0-16.0); Mean Corp Hgb Conc. 34.8 g/dL (33.0-37.0); Mean Corpuscular Hgb 31.1 pg (27.0-31.0); Mean Corpuscular Volume 89.2 fL (81.0-99.0); Mean Platelet Volume 10.7 fL (7.4-10.4); Platelet Count 253 10^3/uL (130-400); Red Blood Cell Count 4.44 10^6/uL (4.20-5.40); Red Cell Dist. Width 13.5 % (11.5-14.5); White Blood Cell Count 8.6 10^3/uL (4.8-10.8)
[2024-05-25 07:20] VITALS: BP 152/68; BP 164/73; BP 98/55; PULSE 63; PULSE 69; PULSE 91
[2024-05-25 07:56] LABS: Blood Urea Nitrogen 22 mg/dl (7-17); Calcium 8.8 mg/dl (8.4-10.2); Carbon Dioxide 21 mmol/L (22-30); Chloride 104 mmol/L (98-107); Estimated Creatinine Clearance 54 ml/min; Glucose 85 mg/dl (70-99); Potassium 4.4 mmol/L (3.5-5.1); Sodium 136 mmol/L (135-145); eGFR > 60.00
[2024-05-25] MEDS: SENOKOT-S 1 TABLET PO (08:12)
--- NOTE | 2024-05-25 10:41 | W.PN.HOSP.TC ---
Today's Communication/Plan
-
see bold
Assessment / Plan
Assessment / Plan
Gen: NAD, AAOx3.
Eyes: EOMI, PERRLA, no scleral icterus.
Neck: supple.
CV: remains RRR, +S1/S2, no m/r/g.
Resp: CTAB anteriorly, no rales, wheezes, or rhonchi.
Abd: remains +BS, soft, NT, ND
Skin: No rashes.
Neuro: CN 2-12 intact, non-focal.
Psych: Normal mood and affect.
ECG (read by me): NSR @ 69, L-axis, LBBB, unchanged from prior
MRI brain 05/08/24: No acute intracranial abnormality noted.
Echo:
1. Left ventricle: Normal size with mild concentric left ventricular
hypertrophy. The estimated ejection fraction is 54% by volumetric assessment.
Normal diastolic function
2. Right ventricle: Normal
3. Atria: Normal
4. Mitral valve: Moderate mitral regurgitation
5. Aortic valve: Trileaflet. No aortic insufficiency
6. Tricuspid valve: Moderate tricuspid regurgitation. Estimated pulmonary
artery systolic pressures of 30-35 mmHg
7. When compared to the most recent echocardiogram from 03/20/2023 there has
been no significant change. LV function is normal. Estimated degree of mitral
regurgitation is moderate and was felt to be mild to moderate on the prior
study and estimated pulmonary artery pressures are 30-35 mmHg and were
estimated at 53 mmHg on the prior study
[facility] 05/24/24:
1. Normal coronary arteries
2. Hyperdynamic left ventricle with +3 mitral regurgitation
Exertional lightheadedness:
-Patient has had near syncopal episodes for many years but today the patient's symptoms persisted longer than usual
-h/o Linq which showed A-tach and NSVT
-recent admission for acute influenza and TIA. At that time refused Plavix and refused echo with bubble study.
-echo above
-orthostatic VS POS
-with concern for NSVT on tele pt had LHC as above notable for MR
-case discussed with Dr. Young on 05/25/24. Recommendation at this time is antiarrhythmic therapy and cardiac MRI. Patient does not want antiarrhythmics or cardiac MRI. I instructed the patient that if she leaves without further workup and
treatment that she has a risk of sudden from cardiac arrhythmia, namely ventricular tachycardia. She verbally acknowledged understanding of this and likely will leave AMA today.
Other problems:
h/o PAF: cont BB
Essential HTN: Cont BB/norvasc
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
DNR - confirmed with the pt in the ER
Lovenox
Anticipated Discharge: Today
Subjective/Interval History
-
Date of Service: May 25, 2024
No new complaints.
Objective Data
-
Labs:
Laboratory Results
05/25/24
06:36
WBC 8.6
Hgb 13.8
Hct 39.6
Plt Count 253
Sodium 136
Potassium 4.4
Chloride 104
Carbon Dioxide 21 L
BUN 22 H
Creatinine 0.8
Glucose 85
Calcium 8.8
Vital Signs:
Vital Signs
Temp Pulse Resp BP Pulse Ox
97.7 F 63 16 164/73 95
05/25/24 07:20 05/25/24 07:20 05/25/24 07:20 05/25/24 07:20 05/25/24 08:05
I&O
05/24/24 05/25/24 05/26/24
06:59 06:59 06:59
Intake Total 240 / 240 720 / 720
Balance 240 / 240 720 / 720
--- NOTE | 2024-05-25 11:00 | W.PN.CARDCBS ---
Today's Communication / Plan
-
She had NSVT and underwent a left heart catheterization yesterday which did not show any obstructive CAD. She had a similar cath in 2020 with NSVT. We discussed her NSVT and consideration for the following:
Switching from Bystolic to Toprol. She refuses this as she states that she did not feel well on Toprol in the past.
Adding amiodarone to help suppress ventricular tachycardia. She refuses this.
We discussed a cardiac MRI to evaluate for scar formation. If she has significant scar formation, this could necessitate a consideration for ICD.
We also discussed the ability to evaluate for infiltrative disease which include but are not limited to sarcoidosis or amyloidosis.
We discussed that sustained ventricular tachycardia that is untreated may lead to her .
She understands the risks and benefits to her medications, recommendations and treatment. For now she would prefer to continue Bystolic and low-dose Norvasc. She does not want to change any of her medications including changing to Toprol or
amiodarone. She does not want a cardiac MRI or consideration for ICD. She understands that declining these may lead to her and she understands and accepts this.
With orthostasis and positional dizziness, we did discuss some permissive hypertension so that she does not become too hypotensive and have syncope.
For now would hold off on midodrine given supine hypertension.
-Notes worsening of her symptoms since Norvasc recently increased during hospitalization for possible TIA 05/07 to 05/08/2024.
Echo reviewed with her showing preserved LV function with stable MR and TR, which are both moderate
Impression / Plan
-
.
PCP: Dr. Webb
Cardiology: Dr. LINNEA Taylor
Impression:
Presented with near syncopal episode 05/23/24
NSVT
Orthostatic hypotension
Hypertension
Hx noncompliance
Paroxysmal atrial fibrillation, 1 episode 03/2023, refused AC
Recent admission for TIA 05/07/2024
NSVT seen on CAM monitor 11/19/20
Paroxysmal atrial tachycardia
Possible hypertrophic cardiomyopathy
h/o syncope
h/o CVA treated with tPA 2015
h/o Linq monitor
Left bundle-branch block
Hypercholesterolemia, not on statin therapy
Poorly tolerant of metoprolol and verapamil
Severe MR seen on cath 11/23/20
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
Echo 01/14/2019: Small left ventricle, EF 60-65%, LVOT gradient 7 mm at rest up to 25 mmHg with Valsalva, 46 mmHg standing and 52 mmHg standing with Valsalva, chordal Tra, mild mitral regurgitation, pulmonary artery systolic pressure 30-35 mmHg
Echo 11/24/2020: EF 60%, LVOT gradient 7 mmHg at rest and 12 mmHg with Valsalva, lying down, stage I diastolic dysfunction, moderate MR
Echo 03/24/2023: EF 60 to 65%, no LV outflow tract gradient, mild to moderate MR and normal LA, normal right heart with moderate TR and PAP 53 mmHg
Echo 05/24/2024: 1. Left ventricle: Normal size with mild concentric left ventricular
hypertrophy. The estimated ejection fraction is 54% by volumetric assessment.
Normal diastolic function
2. Right ventricle: Normal
3. Atria: Normal
4. Mitral valve: Moderate mitral regurgitation
5. Aortic valve: Trileaflet. No aortic insufficiency
6. Tricuspid valve: Moderate tricuspid regurgitation. Estimated pulmonary
artery systolic pressures of 30-35 mmHg
7. When compared to the most recent echocardiogram from 03/20/2023 there has
been no significant change. LV function is normal. Estimated degree of mitral
regurgitation is moderate and was felt to be mild to moderate on the prior
study and estimated pulmonary artery pressures are 30-35 mmHg and were
estimated at 53 mmHg on the prior study
Left heart Cath 05/24/24:
HEMODYNAMICS : (mmHg)
AO (s/d) : 141/63, 95
LV (s/d) : 141/9
LVEDP : 18
CORONARY FINDINGS
DOMINANCE: Right
LEFT MAIN: Normal
LEFT ANTERIOR DESCENDING: The LAD arises normally from the left main and runs in the anterior interventricular groove. The LAD is widely patent
CIRCUMFLEX: Moderate caliber nondominant vessel is widely patent
RIGHT CORONARY ARTERY: The right coronary artery is a dominant vessel that has only minor luminal irregularities
VENTRICULOGRAPHY: Left ventriculography is performed in an RM projection. At the digital single-plane left ventricular ejection fraction is estimated at 70% with 3+ mitral regurgitation
CONCLUSIONS
1. Normal coronary arteries
2. Hyperdynamic left ventricle with +3 mitral regurgitation
Plan:
-Presented after near syncopal episode. Orthostatic in ER with BP dropping from 184/66 to 145/70.
She had NSVT and underwent a left heart catheterization yesterday which did not show any obstructive CAD. She had a similar cath in 2020 with NSVT. We discussed her NSVT and consideration for the following:
Switching from Bystolic to Toprol. She refuses this as she states that she did not feel well on Toprol in the past.
Adding amiodarone to help suppress ventricular tachycardia. She refuses this.
We discussed a cardiac MRI to evaluate for scar formation. If she has significant scar formation, this could necessitate a consideration for ICD.
We also discussed the ability to evaluate for infiltrative disease which include but are not limited to sarcoidosis or amyloidosis.
We discussed that sustained ventricular tachycardia that is untreated may lead to her .
She understands the risks and benefits to her medications, recommendations and treatment. For now she would prefer to continue Bystolic and low-dose Norvasc. She does not want to change any of her medications including changing to Toprol or
amiodarone. She does not want a cardiac MRI or consideration for ICD. She understands that declining these may lead to her and she understands and accepts this.
With orthostasis and positional dizziness, we did discuss some permissive hypertension so that she does not become too hypotensive and have syncope.
For now would hold off on midodrine given supine hypertension.
-Notes worsening of her symptoms since Norvasc recently increased during hospitalization for possible TIA 1/7 to 05/08/2024.
Echo reviewed with her showing preserved LV function with stable MR and TR, which are both moderate
Discussed with nursing.
Will arrange outpatient follow-up with Dr. Taylor.
HPI: Patient came to ER today after episodes of near syncope and appearing unsteady noted by bystander at a local supermarket the patient is now being admitted with near syncope and orthostasis. Patient has a more distant history of NSVT seen on
monitor in 2020 and also a history of hypertrophic cardiomyopathy and orthostasis. A previous Linq monitor has been at end of service for years but while in place had no substantial bradycardia or arrhythmias noted. At the time of NSVT seen on
monitoring in 2020 the patient was admitted to and had cardiac catheterization that showed nonobstructive CAD. Most recently the patient has been following with Dr. Taylor once a year and at her last visit on 07/20/2023 noted an episode of
vasovagal near syncope while in [place] and this overall seems similar to previous episodes. Her BP in the office that day was 136/64 and she is taking amlodipine 2.5 mg at bedtime. Patient was admitted to 05/07/2024 until 05/08/2024 with possible
TIA and had symptoms of slurred speech in the setting of influenza. MRI of the brain was unremarkable at that time. Patient saw her PCP in the office today and BP was 140/86 initially and on recheck had improved to 128/66. Patient did not report
any lightheadedness, but when talking with me in the ER today she noted that yesterday she had an episode of near syncope that was worse than usual describing it as more intense and lasting longer than her typical episodes. After she left the PCP
office she reported near syncope while walking down the ramp and the symptoms continued when she drove herself to the grocery store and stood up from the car to walk into the store. Then while standing in a store her symptoms became worse and she
was noted to be wobbly by bystanders and was sent to ER. No loss of consciousness.
Progress Note - Microarray Specialist
Subjective
Date of Service: May 25, 2024
Pt seen and examined. No complaints. No chest pain or shortness of breath.
Objective
Labs:
05/25/24 06:36
05/25/24 06:36
Labs
Hgb 13.8 g/dL (12.0-16.0) 05/25/24 06:36
Hct 39.6 % (37.0-47.0) 05/25/24 06:36
Plt Count 253 10^3/uL (130-400) 05/25/24 06:36
Sodium 136 mmol/L (135-145) 05/25/24 06:36
Potassium 4.4 mmol/L (3.5-5.1) 05/25/24 06:36
BUN 22 mg/dl (7-17) H 05/25/24 06:36
Creatinine 0.8 mg/dL (0.6-1.0) 05/25/24 06:36
Glucose 85 mg/dl (70-99) 05/25/24 06:36
Vital Signs and I&O:
Vital Signs
Temp Pulse Resp BP Pulse Ox
97.7 F 63 16 164/73 95
05/25/24 07:20 05/25/24 07:20 05/25/24 07:20 05/25/24 07:20 05/25/24 08:05
Vital Signs
Temp Pulse Resp BP Pulse Ox
97.7 F 63 16 164/73 95
05/25/24 07:20 05/25/24 07:20 05/25/24 07:20 05/25/24 07:20 05/25/24 08:05
Intake & Output
05/23/24 05/24/24 05/25/24 05/26/24
06:59 06:59 06:59 06:59
Intake Total 240 / 240 720 / 720
Balance 240 / 240 720 / 720
Physical Exam
Physical Exam
General: No acute distress, AAOX3
Neck: Negative JVD
Heart: Regular, Negative S3 positive S1/S2, Negative S4, No murmur
Lungs: CTA b/l, negative wheezes/rales/rhonchi
Abd: Positive BS, NT/ND, neg rebound/rigidity/guarding
Ext: Negative cyanosis/clubbing/edema
Neuro: nonfocal
[2024-05-25 11:38] VITALS: BP 152/70
[2024-05-25] MEDS: BYSTOLIC 5 MG PO (13:08)
--- NOTE | 2024-05-25 14:40 | W.DCSUMMARY ---
Discharge Summary
Discharge Data
Date of Admission: 05/23/24
Date of Discharge: 05/25/24
-
Pending Results: No
Hospital Course
Primary diagnoses:
Near syncope likely due to nonsustained ventricular tachycardia
Mitral regurgitation
Orthostatic hypotension
Secondary diagnoses:
Paroxysmal atrial fibrillation
Essential hypertension
History of cerebrovascular accident with residual right lower extremity weakness
History of transient ischemic attack
Consultants:
Cardiology
Imaging:
Echo:
1. Left ventricle: Normal size with mild concentric left ventricular
hypertrophy. The estimated ejection fraction is 54% by volumetric assessment.
Normal diastolic function
2. Right ventricle: Normal
3. Atria: Normal
4. Mitral valve: Moderate mitral regurgitation
5. Aortic valve: Trileaflet. No aortic insufficiency
6. Tricuspid valve: Moderate tricuspid regurgitation. Estimated pulmonary
artery systolic pressures of 30-35 mmHg
7. When compared to the most recent echocardiogram from 03/20/2023 there has
been no significant change. LV function is normal. Estimated degree of mitral
regurgitation is moderate and was felt to be mild to moderate on the prior
study and estimated pulmonary artery pressures are 30-35 mmHg and were
estimated at 53 mmHg on the prior study
[facility] 05/24/24:
1. Normal coronary arteries
2. Hyperdynamic left ventricle with +3 mitral regurgitation
Hospital course: 83-year-old female who presented with a chief complaints of near syncope as outlined in the H&P done on admission. The patient had had near syncopal episodes for many years but on the day of admission the patient's symptoms
persisted longer than usual. She had a history of a Linq which showed A-tach and NSVT. Echocardiogram above. Orthostatic vital signs were positive. The patient was thought to have episodes of nonsustained ventricular tachycardia on telemetry.
She had a left heart catheterization as above. On the day the patient left AGAINST MEDICAL ADVICE (05/25/24) the case discussed with Dr. Young. His recommendation was antiarrhythmic therapy and cardiac MRI. The patient did not want antiarrhythmics
or cardiac MRI. I explained to the patient that if she left without further workup and treatment that she had a risk of sudden from cardiac arrhythmia, namely ventricular tachycardia. She verbally acknowledged understanding of this and left
AGAINST MEDICAL ADVICE.
Discharge Plan
-
Patient Disposition: Against Medical Advice
Discharge Diagnosis/Procedures: cardiac catheterization
Stand Alone Forms: DC Instructions- Cath/EP Lab
Referrals:
Kilo Webb PA-C [Family Provider] -
Angel Luis Taylor MD [Active] - 06/25/24 3:20 pm (Cardiology followup appointment)
Prescriptions:
No Action
zinc sulfate 50 mg zinc (220 mg) Tablet
50 mg PO QPM
ascorbic acid (vitamin C) [Vitamin C] 500 mg Tablet
500 mg PO QPM
cranberry 500 mg Capsule
500 mg PO QPM
cholecalciferol (vitamin D3) [Vitamin D3] 25 mcg (1,000 unit) Tablet
25 mcg PO QPM
nebivolol [Bystolic] 5 mg Tablet
5 mg PO BID
amlodipine 5 mg tablet
5 mg PO QPM
Discharge Date and Time
Discharge Date/Time: 05/25/24 14:30
Print Language: GREEK
== END 2024-05-25 14:30 | disposition left against medical advice (07) ==
LOC: 4 EAST ACU 18:06
PROVIDERS: Emergency Medicine; Nurse Practitioner; ADMITTING PHYSICIAN Internal Medicine; CONSULT PHYSICIAN Nuclear Medicine Nuclear Cardiology; EMERGENCY PHYSICIAN Emergency Medicine; FAMILY PHYSICIAN Physician Assistant Medical
DX: I47.20 Ventricular tachycardia, unspecified (principal); I48.0 Paroxysmal atrial fibrillation; I11.9 Hypertensive heart disease without heart failure; R42 Dizziness and giddiness; I47.19 Other supraventricular tachycardia; I25.10 Atherosclerotic heart disease of native coronary artery without angina pectoris; R00.2 Palpitations; I95.1 Orthostatic hypotension; I08.1 Rheumatic disorders of both mitral and tricuspid valves; E78.00 Pure hypercholesterolemia, unspecified; I44.7 Left bundle-branch block, unspecified; I42.2 Other hypertrophic cardiomyopathy; I69.351 Hemiplegia and hemiparesis following cerebral infarction affecting right dominant side; Z66 Do not resuscitate; Z90.49 Acquired absence of other specified parts of digestive tract; Z86.79 Personal history of other diseases of the circulatory system; Z96.642 Presence of left artificial hip joint; Z82.49 Family history of ischemic heart disease and other diseases of the circulatory system; Z88.2 Allergy status to sulfonamides; Z82.3 Family history of stroke; Z60.2 Problems related to living alone
CPT/HCPCS: 80048; 80053; 85025; 85027; 93005; 93306; 93458; 99285; C1894; G0378; Q9967

== ENCOUNTER 2024-05-26 12:08 | Emergency (ER) | payer MEDICARE, SELFPAY ==
[2024-05-26 12:10] VITALS: BMI 23.3
[2024-05-26 12:13] VITALS: BP 129/90
[2024-05-26 12:14] VITALS: BP 129/90
[2024-05-26 12:30] LABS: % Basophils 0.4 % (0-2); % Immature Granulocytes 0.3 % (0-0.5); % Lymphocytes 9.3 % (20.5-51.1); % Monocytes 4.6 % (1.7-9.3); % Neutrophils 85.4 % (42.2-75.2); Absolute Monocytes 0.5 10^3/uL (0.1-0.6); Absolute Neutrophils 9.4 10^3/uL (1.4-6.5); Hematocrit 41.1 % (37.0-47.0); Hemoglobin 14.2 g/dL (12.0-16.0); Mean Corp Hgb Conc. 34.5 g/dL (33.0-37.0); Mean Corpuscular Hgb 31.2 pg (27.0-31.0); Mean Corpuscular Volume 90.3 fL (81.0-99.0); Mean Platelet Volume 10.6 fL (7.4-10.4); Nucleated Red Blood Cells % 0 %; Platelet Count 252 10^3/uL (130-400); Red Blood Cell Count 4.55 10^6/uL (4.20-5.40); Red Cell Dist. Width 13.6 % (11.5-14.5)
--- NOTE | 2024-05-26 12:40 | CON.NEURO ---
Neuro Assessment/Plan
Assessment
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
Differential diagnosis includes orthostatic hypotension which the patient was recently diagnosed with and not undergoing therapy regarding as well as recurrent stroke based on recent therapies and lack of antiplatelet use
Plan
Check MRI of brain without contrast to better determine if the patient has experienced an acute ischemic stroke
Follow orthostatic blood pressures
Provide abdominal binder, increase water intake
Provide atorvastatin 10 mg daily due to LDL greater than 70 when last evaluated the beginning of this month
aspirin 81 mg restart; would initiate clopidogrel for 21-day timeframe if MRI imaging of the brain demonstrates acute ischemic stroke
Not clear at this time patient would benefit from rehabilitation evaluations as she is without symptomatology
Patient likely would benefit from reevaluation by cardiology to determine if alternative medications for arrhythmia can be determined and for potential blood pressure medication alteration
Will follow peripherally
Consultation
Order
Date of Consultation: 05/26/24
Requesting Provider: Emergency department physician
Reason for Consult: Aphasia
Subjective/Objective
Subjective Data
Date of Service: May 26, 2024
Adapted from my prior consultation in 2016:
'Presents to [facility]'s emergency department with new onset of right hemibody weakness. There is no involvement of the leg according to the patient. Patient's information obtained after discussion with the patient and the patient's
.
The patient was in her usual state of health until awakening at 6:30 in the morning. She did not notice any symptomatology until 08:20
At which time she noticed that her R mouth and right arm were weak. She specifically had difficulty with moving both. Patient reports that she has no sense of sensory changes in her face or arm Her words are described as being unclear. She suggests
that immediately prior to presenting she had the greatest amount of weakness in the right arm and in the face. No prior episodes which are similar. Patient took time to use 2 full-strength aspirins this morning although typically takes no aspirin.
No known modifying factors.
No involvement of other portions of the body.'
The patient at that time was told to utilize aspirin and clopidogrel for 21 days then aspirin alone. The patient was also told to utilize a statin medication.
Right-Handed
Had the flu 2 weeks ago with neurology consultation at that time due to an episode of aphasia lasting approximately 1 to 2 minutes. Was placed on dual anti-platelet therapy again which the patient self-discontinued.
Patient returned to this hospital's emergency department on 05/23/2024 with lightheadedness lasting 15 minutes. Underwent cardiac catheterization, found to have Vtach and the left AGAINST MEDICAL ADVICE.
Today, the patient awoke at 0400 without symptomatology, and awoke for the day while experiencing generalized weakness at 0700, 24 hours after cardiac catheterization. Generalized weakness sensation has resolved.
90 minutes later after family arrived, unable to produce words, 3x/15 minutes at 11:15 described as 'mishmash words,' possible facial droop on the left simultaneously.
Resolved since that time. The patient then returned to this hospital's emergency department for reevaluation.
Objective Data
Vital Signs
Temp Pulse Resp BP Pulse Ox
36.7 C 66 15 129/90 97
05/26/24 12:14 05/26/24 12:30 05/26/24 12:30 05/26/24 12:14 05/26/24 12:30
Lab Results
05/26/24 12:18
Patient Allergies
Sulfa (Sulfonamide Antibiotics) Allergy (Verified 05/23/24 12:10)
WEAKNESS
CVA Assessment
Onset of Stroke Symptoms
Onset of symptoms known: Yes
Date of onset of symptoms: 05/26/24
Time of onset of symptoms: 11:15
Time pt last seen normal is known: Yes
Date last time pt seen normal: 05/26/24
Time last time pt seen normal: 04:00
NIH Stroke Score
Level of Consciousness: 0 - Alert
LOC Questions: 0-Answers both correctly
LOC Commands: 0-Performs both correctly
Best Horizontal Gaze: 0-Normal
Visual Monteiro: 0=Normal, no visual loss
Facial Palsy: 0=Normal, symmetrical
Motor - Right Arm: 0=No drift 10 seconds
Motor - Left Arm: 0=No drift 10 seconds
Motor - Right Le-No drift 5 seconds
Motor - Left Le-No drift 5 seconds
Limb Ataxia: 0-Absent
Sensation: 0-Normal
Best Language: 0-No aphasia
Dysarthria: 0-Normal
Extinction and Inattention: 0-No abnormality
Total Score:: 0
Tenecteplase Contraindications
Inclusion and Exclusion criteria reviewed: Yes
IAT Contraindications: NIHSS < 6
Review of Systems
-
History Source: Patient and Family
All other systems: Reviewed and negative
EENT: Negative Decreased Vision or Swallowing Difficulty
Respiratory: Negative Trouble Breathing
Cardiac: Negative Chest Pain
Abdomen/GI: Negative Incontinence of Stool
Genitourinary: Negative Incontinence
Musculoskeletal: Negative Back Pain or Neck Pain
Neuro: Negative Dizzy or Headache
Physical Exam
-
General: No Apparent Distress and Appears Stated Age
Eyes: OU Absent Papilledema, Round OU, [place] Conjunctivae and No Ptosis
HEENT: Anicteric and Moist Mucous Membranes
Neck: Full Range of Motion
Respiratory: No Dyspnea
Cardiac: No JVD
GI: Non-distended
Skin: Unremarkable
Extremities: No Clubbing, No Cyanosis and No Edema
Psych: Negative Intact Judgement/Insight
Extended Neurological Exam
Mood & Affect: Mood Unremarkable and Affect Unremarkable
Attention Span & Concentration: Awake, Alert, Interactive and No Difficulty with 2 Step Request
Memory: Unremarkable
Tremor: Hand Tremor Absent and Head Tremor Absent
Speech: Quality Unremarkable and Quantity Unremarkable
Cranial Nerve II: Left Eye: Pupillary Reactivity Unremarkable, Pupillary Size Unremarkable and Visual Monteiro Intact
Cranial Nerve II: Right Eye: Pupillary Reactivity Unremarkable, Pupillary Size Unremarkable and Visual Monteiro Intact
Cranial Nerves III, IV, : Extraocular Movement: Extraocular Movement Full in all Directions
Cranial Nerve VII: Facial Symmetry: Normal Facial Symmetry
Cranial Nerve VIII: Hearing: Unremarkable Hearing to Normal Conversational Volume
Cranial Nerves IX, X: Palate Movement: Palate Elevation Symmetric
Cranial Nerve XI: Shoulder Shrug: Unremarkable
Cranial Nerve XII: Tongue Protusion: Midline
Muscle Strength, Overall: Full Throughout
Muscle Bulk & Tone: Bulk Unremarkable and Tone Unremarkable
Pronator Drift: No Drift in Upper Extremities
Deep Tendon Reflexes: Trace Throughout
Touch Sensation: Unremarkable
Coordination: Ybbglm-hist-hcvyfb Testing Unremarkable
Babinski Sign: Absent Bilaterally
Medications
-
Home Medications
�Medication �Instructions �Recorded
amlodipine 5 mg tablet 5 mg PO QPM Blood pressure 05/23/24
ascorbic acid (vitamin C) 500 mg 500 mg PO QPM 05/23/24
tablet (Vitamin C)
cholecalciferol (vitamin D3) 25 25 mcg PO QPM 05/23/24
mcg (1,000 unit) tablet (Vitamin
D3)
cranberry 500 mg capsule 500 mg PO QPM 05/23/24
nebivolol 5 mg tablet (Bystolic) 5 mg PO BID 05/23/24
zinc sulfate 50 mg zinc (220 mg) 50 mg PO QPM 05/23/24
tablet
[2024-05-26 12:42] LABS: ALT (SGPT) 15 U/L (0-35); AST (SGOT) 25 U/L (14-36); Albumin 4.2 g/dl (3.5-5.0); Alkaline Phosphatase 76 U/L (38-126); Blood Urea Nitrogen 28 mg/dl (7-17); Calcium 9.2 mg/dl (8.4-10.2); Carbon Dioxide 23 mmol/L (22-30); Chloride 101 mmol/L (98-107); Estimated Creatinine Clearance 51 ml/min; Glucose 118 mg/dl (70-99); Potassium 4.5 mmol/L (3.5-5.1); Sodium 135 mmol/L (135-145); Total Bilirubin 1.2 mg/dl (0.2-1.3); Total Protein 7.2 g/dl (6.3-8.2); eGFR > 60.00
--- NOTE | 2024-05-26 12:46 | ED.CVA ---
History of Present Illness
General
Chief Complaint: CVA/TIA Symptoms
Source: patient
Exam Limitations: none
Time Seen by Provider: 05/26/24 12:18
Nursing documentation reviewed up to this point in time: agreed with
Onset of Stroke Symptoms
Onset of symptoms known: No
Time pt last seen normal is known: Yes
Date last time pt seen normal: 05/25/24
History of Present Illness
History of Present Illness:
Pt presents to ED secondary to 3 episodes of inability to speak when speak with family/friends, prior to arrival. Pt was admitted to hospital for similar complaint 3 weeks ago, and discharged with unremarkable workup. At the time of evaluation in
ED, patient is without any symptoms or complaints. Denies headache. Denies dizziness. Denies nausea/vomiting. Denies loss of sensation/weakness. Denies difficulty with swallowing. Denies difficulty with ambulation. Denies recent illness. Denies
recent change in medications/diet. Of note, patient left AMA from yesterday when she was initially evaluated for NSVT, during which time she received cardiac catherization.
Past History
Past History
ED Past Medical History: CVA and HTN
ED Past Surgical History: Appendectomy, Gynecological and Tonsilectomy
Social History
Tobacco: Non-smoker
Alcohol: None
Drug: None
Personal:
Living: with family
Employment: Retired
Family History
Family History: Other (stroke in elderly grandparents)
Review of Systems
Review of Systems
Allergies reviewed?: Yes
All Other Systems: ROS reviewed and negative except as documented in HPI and ROS
Constitutional: Reports no symptoms
EENT: Reports no symptoms
Cardiac: Reports no symptoms
ABD/GI: Reports no symptoms
Musculoskeletal: Reports no symptoms
Skin: Reports no symptoms
Neurological: Reports other (difficulty speaking)
Phy Exam
Physical Exam
Physical Exam:
General: well nourished female, in no acute distress. afebrile
Heent: nc/at. eomi
Lungs: cta
Heart: rrr. no murmur
Neuro: aao x 3. no focal sensory/motor deficit. normal speech. normal gait.
Skin: warm to touch. no rash.
Ext: no edema
Psych: pleasant and cooperative
Course
Orders/Labs/Results
Orders:
Orders
05/26/24 12:17
EKG [Electrocardiogram (*1)] Urgent
Reason for Study: Fatigue / Weakness
EKG- Treatment ONCE
05/26/24 12:18
CBC/With Diff [Complete Blood Count/With Diff] Urgent
CMP [Comprehensive Metabolic Panel] Urgent
05/26/24 12:39
MR Brain Without Contrast Routine
Comment:
Reason For Exam: aphasia
Recent pill cam endoscopy?: No
05/26/24 12:45
NEUROLOGY CONSULT Urgent
Consulting Provider: Hal Martinez
Was physician already notified: Yes
Reason for consult: expressive aphasia
Abnormal Lab Results
05/26/24
12:18
WBC 11.0 H 10^3/uL
(4.8-10.8)
MCH 31.2 H pg
(27.0-31.0)
MPV 10.6 H fL
(7.4-10.4)
Absolute Neuts (auto) 9.4 H 10^3/uL
(1.4-6.5)
Absolute Lymphs (auto) 1.0 L 10^3/uL
(1.2-3.4)
Neutrophils % 85.4 H %
(42.2-75.2)
Lymphocytes % 9.3 L %
(20.5-51.1)
BUN 28 H mg/dl
(7-17)
Glucose 118 H mg/dl
(70-99)
05/26/24 12:18
05/26/24 12:18
Vital Signs
Initial and Last Documented VS:
Initial Vital Signs
Pulse Resp
77 17
05/26/24 12:10 05/26/24 12:10
Last Documented Vital Signs
Temp Pulse Resp BP Pulse Ox
98.0 F 61 12 141/52 96
05/26/24 12:14 05/26/24 15:30 05/26/24 15:30 05/26/24 15:00 05/26/24 15:30
MDM/Problems Addressed
MDM/Problems Addressed:
CT head: NAD.
Pt evaluated in ED by neurology () - recommends MRI brain.
MRI: no acute findings. Recommends discharge home on aspirin 81mg along with continual evaluation with cardiology.
Pt is afebrile, hemodynamically stable, and without any neurological deficit, at time of discharge, to the care of her family.
*EKG
Interpreted by ED Provider?: Yes
Heart Rate: 73
Rate: normal
Rhythm: sinus
[place]: normal axis
Interval: normal interval
*Critical Care Note
Total Time (30-74mins, 75-104mins- exclusive of procedures): Not Applicable
ED Attending Note
-
Portions of this chart may have been created with voice recognition software.� Occasional wrong word or��sound alike� substitutions may have occurred due to the inherent limitations of voice recognition software.
Discharge Plan
Departure
Patient Disposition: Home (Routine Discharge)
Date of Disposition: 05/26/24
Time of Disposition: 15:28
Patient with high blood pressure during this ER visit?: Yes
Discharge Problem:
Expressive aphasia
Instructions: Transient Ischemic Attack (DC)
Prescriptions:
No Action
zinc sulfate 50 mg zinc (220 mg) Tablet
50 mg PO QPM
ascorbic acid (vitamin C) [Vitamin C] 500 mg Tablet
500 mg PO QPM
cranberry 500 mg Capsule
500 mg PO QPM
cholecalciferol (vitamin D3) [Vitamin D3] 25 mcg (1,000 unit) Tablet
25 mcg PO QPM
nebivolol [Bystolic] 5 mg Tablet
5 mg PO BID
amlodipine 5 mg tablet
5 mg PO QPM
Referrals:
Kilo Webb PA-C [Family Provider] -
Activity Restrictions/Additional Instructions:
As discussed, please follow-up with your primary care physician and data analysis intern for further evaluation and treatment.
Interventions
Interventions:
*Risk Screen - Suicide Last Done: 05/26/24 12:10
*General Assessment Last Done: 05/26/24 12:10
*Neglect/Abuse Screening Last Done: 05/26/24 12:10
ED- Fall Risk Assessment Last Done: 05/26/24 12:15
*Nursing Disposition Last Done: 05/26/24 16:10
ED- Pulmonary Assessment Last Done: 05/26/24 12:15
ED- Neurological Assessment Last Done: 05/26/24 12:15
ED- Cardiac Assessment Last Done: 05/26/24 12:15
ED Swallowing Screen Last Done: 05/26/24 12:16
Discharge Date and Time
Discharge Date/Time: 05/26/24 16:12
Print Language: MAURITIAN
[2024-05-26 13:00] VITALS: BP 144/55
[2024-05-26 15:00] VITALS: BP 141/52
== END 2024-05-26 16:12 | disposition home or self-care (01) ==
LOC: EMR 12:08
PROVIDERS: CONSULT PHYSICIAN Psychiatry & Neurology Neurology; EMERGENCY PHYSICIAN Emergency Medicine; FAMILY PHYSICIAN Physician Assistant Medical
DX: R47.01 Aphasia (principal); I10 Essential (primary) hypertension; Z86.73 Personal history of transient ischemic attack (TIA), and cerebral infarction without residual deficits; Z79.899 Other long term (current) drug therapy; Z88.2 Allergy status to sulfonamides; Z90.49 Acquired absence of other specified parts of digestive tract
CPT/HCPCS: 99284; 70551; 80053; 85025; 93005

== ENCOUNTER 2024-05-28 03:51 | Inpatient (IN) | payer MEDICARE, SELFPAY ==
[2024-05-27] VITALS (7 sets, daily range): BP systolic 137–179; BP diastolic 55–78; PULSE 73–79; BMI 23.1
--- NOTE | 2024-05-27 17:17 | ED.GENMED ---
ED Provider Triage
<Terrance Arias PA-C - Last Filed: 05/27/24 17:19>
-
Patient seen by provider in Triage?: Seen in Triage
Attestation: A medical screening examination has been initiated by a qualified medical provider. Based on the assessment performed at this time, it has been determined that an emergent medical condition may exist and the patient has been informed
that further medical evaluation and possible additional diagnostic testing may be needed.
HPI: 83-year-old female presenting to the emergency department for reevaluation of persistent lightheadedness that has been ongoing for the last few weeks. Patient with multiple visits and admissions to this hospital, last being a couple of days
ago where she left AGAINST MEDICAL ADVICE. Patient seen in this emergency department yesterday where she had an MRI of her brain which did not show any acute strokes but was recommended to initiate 81 mg aspirin and was advised to increase her
fluids as it was thought to be potentially related to orthostatic hypotension. During patient's recent admission where she left AGAINST MEDICAL ADVICE there was noted cardiac dysrhythmia and patient left prior to receiving any antiarrhythmics as
well as cardiac MRI which was recommended by cardiology. Unable to ascertain as to whether patient had any further cardiac follow-up arranged or treatments. Patient reports that she is asymptomatic at present time. Labs and EKG ordered.
GENERAL: Alert , in no apparent distress
EYE: No visual abnormalities.
NECK: Trachea midline
ENT: No visible abnormalities.
LUNGS: No acute respiratory distress
NEUROLOGICAL: Alert and oriented
SKIN: Skin intact. No visible changes.
MUSCULOSKELETAL: Moving extremities normally
PSYCH: Normal and appropriate interaction.
This is a medical evaluation conducted in person to initiate diagnostic evaluation and provide initial therapeutics. Please see further documentation by the treating clinician.
History of Present Illness
<Terrance Arias PA-C - Last Filed: 05/27/24 17:19>
General
Chief Complaint: Dizziness
Time Seen by Provider: 05/27/24 22:19
<Edna New DO - Last Filed: 05/28/24 00:27>
History of Present Illness
History of Present Illness:
83-year-old female with history of high blood pressure presenting to the emergency department for persistent episodes of lightheadedness. Patient notes that she chronically has issues with lightheadedness, however infrequent episodes. Since
beginning of this month, episodes have been increasing in frequency. She was seen in the hospital on 05/07 to 05/08, diagnosed with a TIA after she was having some word finding issues. She returned again to the hospital 05/23, admitted until 05/25 for
near syncope. At that time patient was found to have nonsustained ventricular tachycardia, advised medication adjustment with metoprolol and amiodarone, as well as cardiac MRI for potential ICD. In discussion with daughter, appears to be some
miscommunication. Patient continues to have these lightheaded episodes, which are increasing in frequency and severity. Daughter notes that she no longer feels safe at home by herself, requiring assistance to ambulate. She came to the hospital
yesterday again with a word finding issue, had negative MRI of the brain and was discharged home. They return to the hospital seeking answers and resolution from cardiac standpoint. Patient currently denying chest pain, difficulty breathing,
dizziness, fever, additional acute medical complaints
Past History
<Terrance Arias PA-C - Last Filed: 05/27/24 17:19>
Past History
ED Past Medical History: CVA and HTN
ED Past Surgical History: Appendectomy, Gynecological and Tonsilectomy
Social History
Tobacco: Non-smoker
Alcohol: None
Drug: None
Personal:
Living: with family
Employment: Retired
Family History
Family History: Other (stroke in elderly grandparents)
Phy Exam
<DO Ree Sol Last Filed: 05/28/24 00:27>
Physical Exam
Physical Exam:
General: Well-appearing, no clinical signs of dehydration, nontoxic and in no acute distress
HEENT: protecting airway
Neck: appears supple
CV: Normal heart rate, regular rhythm
Resp: No accessory muscle use, no increased work of breathing, lungs clear to auscultation bilaterally
Abd: Soft and non-distended, no tenderness to palpation
Extremities: No deformities, no swelling, no erythema
Neuro: alert, no focal neurologic deficit
: deferred
Rectal: deferred
Psych: Normal affect
Skin: Intact
Course
<Terrance Arias PA-C - Last Filed: 05/27/24 17:19>
Orders/Labs/Results
Orders:
Orders
05/27/24 17:08
Electrocardiogram (*1) Urgent
Reason for Study: Vertigo / Dizzy
EKG- Treatment ONCE
05/27/24 17:27
Basic Metabolic Panel Urgent
Complete Blood Count/With Diff Urgent
05/27/24 23:01
Orthostatic VS- Treatment ONCE
0.9% Sodium Chloride 1000 ml [Nss] 1,000 ml IV BOLUS
05/27/24 23:33
Troponin I Urgent
Abnormal Lab Results
05/27/24 05/27/24
17:27 23:33
MPV 10.5 H fL
(7.4-10.4)
Absolute Neuts (auto) 6.9 H 10^3/uL
(1.4-6.5)
Absolute Monos (auto) 0.7 H 10^3/uL
(0.1-0.6)
Lymphocytes % 18.2 L %
(20.5-51.1)
Sodium 130 L mmol/L
(135-145)
Carbon Dioxide 18 L mmol/L
(22-30)
BUN 24 H mg/dl
(7-17)
Glucose 108 H mg/dl
(70-99)
Troponin I 0.207 H* ng/ml
05/27/24 17:27
05/27/24 17:27
Vital Signs
Initial and Last Documented VS:
Initial Vital Signs
Temp Pulse Resp BP Pulse Ox
98.4 F 73 20 137/69 98
05/27/24 17:16 05/27/24 17:16 05/27/24 17:16 05/27/24 17:16 05/27/24 17:16
Last Documented Vital Signs
Temp Pulse Resp BP Pulse Ox
98.4 F 68 16 168/64 97
05/27/24 17:16 05/27/24 23:30 05/27/24 23:30 05/27/24 23:07 05/27/24 23:15
<Edna New, DO - Last Filed: 05/28/24 00:27>
Orders/Labs/Results
Orders:
Orders
05/27/24 17:08
Electrocardiogram (*1) Urgent
Reason for Study: Vertigo / Dizzy
EKG- Treatment ONCE
05/27/24 17:27
Basic Metabolic Panel Urgent
Complete Blood Count/With Diff Urgent
05/27/24 23:01
Orthostatic VS- Treatment ONCE
0.9% Sodium Chloride 1000 ml [Nss] 1,000 ml IV BOLUS
05/27/24 23:33
Troponin I Urgent
Abnormal Lab Results
05/27/24 05/27/24
17:27 23:33
MPV 10.5 H fL
(7.4-10.4)
Absolute Neuts (auto) 6.9 H 10^3/uL
(1.4-6.5)
Absolute Monos (auto) 0.7 H 10^3/uL
(0.1-0.6)
Lymphocytes % 18.2 L %
(20.5-51.1)
Sodium 130 L mmol/L
(135-145)
Carbon Dioxide 18 L mmol/L
(22-30)
BUN 24 H mg/dl
(7-17)
Glucose 108 H mg/dl
(70-99)
Troponin I 0.207 H* ng/ml
05/27/24 17:27
05/27/24 17:27
Vital Signs
Initial and Last Documented VS:
Initial Vital Signs
Temp Pulse Resp BP Pulse Ox
98.4 F 73 20 137/69 98
05/27/24 17:16 05/27/24 17:16 05/27/24 17:16 05/27/24 17:16 05/27/24 17:16
Last Documented Vital Signs
Temp Pulse Resp BP Pulse Ox
98.4 F 68 16 168/64 97
05/27/24 17:16 05/27/24 23:30 05/27/24 23:30 05/27/24 23:07 05/27/24 23:15
<Edna New, DO - Last Filed: 05/28/24 00:27>
MDM/Problems Addressed
MDM/Problems Addressed:
83-year-old female with history of high blood pressure presenting for persistent lightheadedness and feeling off balance. Vital signs on arrival are normal.
On exam patient is resting comfortably, no acute distress or discomfort. Unremarkable cardiac, pulmonary, neurologic exam. Did review patient's chart with 2 recent hospital admissions in the past month for suspected TIA as well as near syncope
with concern for cardiac arrhythmia. During second admission, had a left patient signed out AGAINST MEDICAL ADVICE, declining medication recommendations or ICD placement. Daughter notes that symptoms are getting to the point where patient is very
unsteady, difficulty ambulating without having symptoms of lightheadedness. Patient is a fall risk. Patient lives at home with herself. Patient notes that she is agreeable to cardiology recommendations, however did not fully understand about the
time. Laboratory analysis obtained, unremarkable. Do not feel patient requires advanced imaging with negative MRI yesterday. Will obtain orthostatic vital signs and plan for admission for continued cardiac consultation, potential PT and potential
SNF
00:10 -troponin slightly bumped from prior hospitalization. Patient was witnessed to have heart rate go from 70s, dropped to 40s. Again concern for cardiac etiology to patient's symptoms, arrhythmia. Without concern for ischemia, recent heart
catheterization on recent admission, without significant coronary disease.
<Edna New DO - Last Filed: 05/28/24 00:27>
*EKG
Interpreted by ED Provider?: Yes
EKG Intrepretation Date: 05/27/24
EKG Intrepretation Time: 23:17
Interpretation: normal
Comparison EKG: no changes (05/26/24)
Heart Rate: 65
Rate: normal
Rhythm: sinus
[place]: left axis deviation
QRS Pattern: left bundle branch block
Ischemia: no ischemia
*Critical Care Note
Total Time (30-74mins, 75-104mins- exclusive of procedures): Not Applicable
ED Attending Note
<Terrance Arias PA-C - Last Filed: 05/27/24 17:19>
-
Portions of this chart may have been created with voice recognition software.� Occasional wrong word or��sound alike� substitutions may have occurred due to the inherent limitations of voice recognition software.
Discharge Plan
Departure
Prescriptions:
No Action
zinc sulfate 50 mg zinc (220 mg) Tablet
50 mg PO QPM
ascorbic acid (vitamin C) [Vitamin C] 500 mg Tablet
500 mg PO QPM
cranberry 500 mg Capsule
500 mg PO QPM
cholecalciferol (vitamin D3) [Vitamin D3] 25 mcg (1,000 unit) Tablet
25 mcg PO QPM
nebivolol [Bystolic] 5 mg Tablet
5 mg PO BID
amlodipine 5 mg tablet
5 mg PO QPM
Referrals:
Kilo Webb PA-C [Family Provider] -
Interventions
Interventions:
*Risk Screen - Suicide Last Done: 05/27/24 17:16
*General Assessment Last Done: 05/27/24 22:31
*ED COVID-19 Vaccine History Last Done: 05/27/24 22:31
ED- Neurological Assessment Last Done: 05/27/24 22:32
ED Swallowing Screen Last Done: 05/27/24 22:32
Discharge Date and Time
Print Language: POLISH
[2024-05-27 17:41] LABS: % Basophils 0.6 % (0-2); % Immature Granulocytes 0.3 % (0-0.5); % Lymphocytes 18.2 % (20.5-51.1); % Neutrophils 73.9 % (42.2-75.2); Absolute Basophils 0.1 10^3/uL (0-0.2); Absolute Lymphocytes 1.7 10^3/uL (1.2-3.4); Absolute Monocytes 0.7 10^3/uL (0.1-0.6); Absolute Neutrophils 6.9 10^3/uL (1.4-6.5); Hematocrit 39.3 % (37.0-47.0); Hemoglobin 13.5 g/dL (12.0-16.0); Mean Corp Hgb Conc. 34.4 g/dL (33.0-37.0); Mean Corpuscular Hgb 30.5 pg (27.0-31.0); Mean Corpuscular Volume 88.7 fL (81.0-99.0); Mean Platelet Volume 10.5 fL (7.4-10.4); Nucleated Red Blood Cells % 0 %; Platelet Count 241 10^3/uL (130-400); Red Blood Cell Count 4.43 10^6/uL (4.20-5.40); Red Cell Dist. Width 13.4 % (11.5-14.5); White Blood Cell Count 9.3 10^3/uL (4.8-10.8)
[2024-05-27 17:58] LABS: Blood Urea Nitrogen 24 mg/dl (7-17); Calcium 8.8 mg/dl (8.4-10.2); Carbon Dioxide 18 mmol/L (22-30); Chloride 99 mmol/L (98-107); Glucose 108 mg/dl (70-99); Potassium 4.2 mmol/L (3.5-5.1); Sodium 130 mmol/L (135-145); eGFR > 60.00
[2024-05-28] VITALS (26 sets, daily range): BP systolic 122–180; BP diastolic 49–118; PULSE 73–80; BMI 22.6
[2024-05-28] MEDS: NSS 1000 IV (00:03)
[2024-05-28 00:07] LABS: Troponin I 0.207 ng/ml
--- NOTE | 2024-05-28 03:40 | HPS.HSE ---
Family Physician
-
Family Physician: Kilo Webb PA-C
Chief Complaint
-
Lightheadedness
History of Present Illness
Patient is an 83y F with PMH significant for non-sustained VT, paroxysmal atrial tachycardia, hypertension and ASCVD / prior CVA who presents to ED complaining of lightheadedness. Patient was recently admitted to 05/23 - 05/25 for similar
symptoms. See records from that hospitalization for additional details. Symptoms were attributed to NSVT and antiarrhythmic therapy was recommended at that time. Patient declined and ultimately signed out AMA.
She returned to the ED the following day with speech difficulty. MRI was done in the ED which showed no new CVA and patient was discharged to home with addition of ASA to her med regimen.
She returned to the ED again this evening with recurrent lightheadedness. Patient states that she had several episodes throughout the day today - and they did not resolve quickly as they 'usually do'.
Medical History
Past Medical History
Past Medical History: Reports Other
Additional Past Medical History:
Isolated A-Fib Episode
Paroxysmal Atrial Tachycardia
Non-Sustained VT
Hypertension
Orthostatic Hypotension
ASCVD / Prior CVA
Past Surgical History: Reports Other
Additional Past Surgical History:
LINQ
Social History
Tobacco: Non-smoker
Alcohol: None
Drug: None
Family History
Family History: Not pertinent
Allergies / Home Medications
Allergies reflects when Allergies were last updated in [facility].
Home Medications with original date entered in [facility] [employer]
Allergy/Medication List:
Allergies
Allergy/AdvReac Type Severity Reaction Status Date / Time
Sulfa (Sulfonamide Allergy WEAKNESS Verified 05/27/24 17:16
Antibiotics)
Home Medications
amlodipine 5 mg tablet 5 mg PO QPM Blood pressure 05/23/24
ascorbic acid (vitamin C) 500 mg tablet (Vitamin C) 500 mg PO QPM 05/23/24
cholecalciferol (vitamin D3) 25 mcg (1,000 unit) tablet (Vitamin D3) 25 mcg PO QPM 05/23/24
cranberry 500 mg capsule 500 mg PO QPM 05/23/24
nebivolol 5 mg tablet (Bystolic) 5 mg PO BID 05/23/24
zinc sulfate 50 mg zinc (220 mg) tablet 50 mg PO QPM 05/23/24
aspirin 81 mg chewable tablet 81 mg PO DAILY 05/28/24
Review of Systems
-
History Source: Patient
A 12 point ROS was completed and negative except as noted: Yes
Constitutional: Reports Fatigue; Denies Fever or Chills
Respiratory: Denies Cough or Trouble Breathing
Cardiac: Denies Chest Pain or Palpitations
Abdomen/GI: Denies Abdominal Pain, Nausea, Vomiting or Diarrhea
: Denies Dysuria or Frequency
Musculoskeletal: Denies Joint Pain or Edema
Neurological: Reports Dizzy; Denies Headache
Psych: Denies Depression or Anxiety
Physical Exam
Vital Signs
Vital Signs
Temp Pulse Resp BP Pulse Ox
98.4 F 69 19 153/54 96
05/27/24 17:16 05/28/24 03:30 05/28/24 03:30 05/28/24 03:00 05/28/24 03:30
Physical Exam
General: Other (83y F in no acute distress.)
HEENT: Moist mucous membranes and PERRLA
Respiratory: Clear; No Wheezes, Rales or Rhonchi
Cardiac: S1/S2 and Regular Rhythm; No Murmur
GI: Soft, Non Tender, Non Distended and Normal Bowel Sounds
Musculoskeletal: No Clubbing, No Cyanosis and No Edema
Neuro: AO x 3 and Nonfocal/grossly intact
Laboratory Results
-
05/27/24 17:27
05/27/24 17:27
Laboratory Results
Troponin I 0.207 ng/ml H* 05/27/24 23:33
Impression/Plan
-
A/P: Patient is an 83y F with PMH significant for NSVT, atrial tachycardia and hypertension who presents to ED complaining of lightheadedness.
Lightheadedness - Recurrent / Persistent
NSVT
Atrial Tachycardia
- Admit to monitored bed for further evaluation and treatment.
- Seems likely that symptoms are related to arrhythmia / NSVT.
- Cardiology evaluation to resume work-up / plan.
- Patient states that she is agreeable and that prior admission was a misunderstanding.
ASCVD
Prior CVA
- Recent ED visit for word-finding difficulty.
- Symptoms resolved. MRI with no new findings.
- Continue ASA daily. Follow for any new complaints.
Benign Hypertension
- Stable. Continue current medications.
DVT Prophylaxis: SCDs
Code Status: DNR
[2024-05-28 05:40] LABS: Hematocrit 37.3 % (37.0-47.0); Hemoglobin 12.8 g/dL (12.0-16.0); Mean Corp Hgb Conc. 34.3 g/dL (33.0-37.0); Mean Corpuscular Hgb 30.5 pg (27.0-31.0); Mean Corpuscular Volume 88.8 fL (81.0-99.0); Mean Platelet Volume 10.5 fL (7.4-10.4); Platelet Count 219 10^3/uL (130-400); Red Cell Dist. Width 13.5 % (11.5-14.5); White Blood Cell Count 8.1 10^3/uL (4.8-10.8)
[2024-05-28 06:10] LABS: Blood Urea Nitrogen 16 mg/dl (7-17); Calcium 8.5 mg/dl (8.4-10.2); Carbon Dioxide 24 mmol/L (22-30); Chloride 106 mmol/L (98-107); Estimated Creatinine Clearance 66 ml/min; Glucose 83 mg/dl (70-99); Magnesium 2.1 mg/dl (1.6-2.3); Phosphorus 3.4 mg/dl (2.5-4.5); Potassium 4.1 mmol/L (3.5-5.1); Sodium 139 mmol/L (135-145); eGFR > 60.00
[2024-05-28 06:24] LABS: Troponin I 0.163 ng/ml
[2024-05-28] MEDS: BYSTOLIC 5 MG PO ×2 (08:42→20:56)
[2024-05-28] MEDS: LOW STRENGTH ASPIRIN 81 MG PO (08:42)
--- NOTE | 2024-05-28 11:00 | CON.CAR ---
Addendum entered and electronically signed by Manny Rashid MD 05/28/24 12:35:
I saw and examined the patient.
The PROFESSIONAL SHOPPER or PA's note was reviewed and I agree with the note.
Comment: General: Well developed, well nourished in NAD.
Neck: Supple, no JVD, HJR, carotids +2 B/L, no bruits bilaterally.
Heart: Non displaced PMI, RRR, no murmurs, No S3, S4, no rubs.
Lungs: Clear to auscultation bilaterally, no wheeze, rhonchi, rubs bilaterally,
normal expiratory phase.
Abdomen: Normal bowel sounds, soft, non-tender, non-distended.
Extremities: No clubbing, cyanosis or edema bilaterally.
Neuro: Grossly nonfocal, awake, alert and oriented x3.
Dayna has a history of A-fib, atrial tachycardia, possible hocm, CVA, left bundle branch block, MR, nonsustained VT. She was admitted with lightheadedness felt to be secondary nonsustained VT but also had orthostasis in May 2024. She
underwent cath with nonobstructive CAD and ejection fraction was normal. Amiodarone was discussed with patient as well as cardiac MRI but patient declined and left AGAINST MEDICAL ADVICE. She was seen in ER 05/26/2024 due to inability to speak and
underwent brain MRI with no acute findings but there was concern about TIA and was discharged on baby aspirin. She presents with lightheadedness and did have an episode latest in ER correlating with nonsustained V. tach.
She now agrees to amiodarone and will load with 400 mg p.o. 3 times daily. Will also check cardiac MRI.
Addendum entered and electronically signed by Margarita Gale PA-C 05/28/24 12:07:
L wrist also with small firm area at radial site with surrounding ecchymoses in various stages of healing, would consider check ultrasound.
Original Note:
Consultation
Consultation Request
Date/Time Consultation Performed: 05/28/24
Requesting Provider: Dr. Melendrez
Performing Provider: Margarita Gale PA-C for Dr. Rashid
Reason for Consultation: recurrent lightheadedness
Medical History
-
Chief Complaint: recurrent lightheadedness
History of Present Illness:
Patient with history of paroxysmal A-fib and A. tach, possible HOCM, history of stroke, chronic left bundle branch block, mitral regurgitation, NSVT on CAM monitor 11/19/2020, was admitted to [facility] 05/23 - 05/25/2024 for episodes of
lightheadedness felt to be secondary to NSVT, however also had evidence of orthostasis. She underwent cardiac catheterization 05/24/2024 with nonobstructive coronary disease. Echocardiogram showed preserved EF. Amiodarone was discussed with
patient as well as cardiac MRI, however patient declined and left AMA on 05/25. She then presented back to the emergency room on 05/26/2024 due to inability to speak and underwent brain MRI without acute findings, concern for TIA. She was discharged
on baby aspirin. She presented back to [facility] last evening due to recurrent episodes of lightheadedness. She did have episode of lightheadedness while in ER which appears to correlate to an episode of NSVT. No LOC. She reports she
did not fully understand or misunderstood the gravity of her issues and the plan previously.
PMH:
NSVT, symptomatic
Paroxysmal atrial fibrillation/atrial tachycardia, not chronically on OAC
Hypertrophic cardiomyopathy
Mod MR by echo 05/24/24
Orthostatic hypotension
Hypertension
h/o syncope
h/o CVA treated with tPA 2015
h/o Linq monitor
Left bundle-branch block
Hypercholesterolemia, not on statin therapy
Poorly tolerant of metoprolol and verapamil in past
s/p LTHA 01/2023
Past Medical History
Past Medical History: Other (in HPI)
Past Surgical History: Appendectomy and Orthopedic (L BRITNI 02/20)
Social History
Tobacco: Non-Smoker
Alcohol: None
Drug: None
Personal:
Living: Alone
Employment: Retired
Family History
Family History: Hypertension
Allergies / Home Medications
Allergy/AdvReac Type Severity Reaction Status Date / Time
Sulfa (Sulfonamide Allergy WEAKNESS Verified 05/27/24 17:16
Antibiotics)
�Medication �Instructions �Recorded �Confirmed �Type
amlodipine 5 mg tablet 5 mg PO QPM Blood pressure 05/23/24 05/28/24 History
ascorbic acid (vitamin C) 500 mg 500 mg PO QPM 05/23/24 05/28/24 History
tablet (Vitamin C)
cholecalciferol (vitamin D3) 25 25 mcg PO QPM 05/23/24 05/28/24 History
mcg (1,000 unit) tablet (Vitamin
D3)
cranberry 500 mg capsule 500 mg PO QPM 05/23/24 05/28/24 History
nebivolol 5 mg tablet (Bystolic) 5 mg PO BID 05/23/24 05/28/24 History
zinc sulfate 50 mg zinc (220 mg) 50 mg PO QPM 05/23/24 05/28/24 History
tablet
aspirin 81 mg chewable tablet 81 mg PO DAILY 05/28/24 05/28/24 History
Review of Systems
-
History Source: Patient and Family
All other systems: Negative unless noted
Physical Exam
Vital Signs
Temp Pulse Resp BP Pulse Ox
98.4 F 72 15 168/71 95
05/27/24 17:16 05/28/24 10:30 05/28/24 10:30 05/28/24 10:06 05/28/24 07:15
Lab Results
05/28/24 05:31
05/28/24 05:31
Troponin I 0.163 ng/ml H* 05/28/24 05:31
Physical Exam
General: No Apparent Distress and Comfortable
HEENT: Normocephalic, Anicteric and Moist Mucous Membranes
Respiratory: Clear and Non Labored Respirations
Cardiac: S1/S2, Regular Rhythm and Murmur
GI: Soft, Non Tender, Non Distended and Normal Bowel Sounds
Musculoskeletal: No Clubbing, No Cyanosis and No Edema
Skin: Warm and Dry
Neuro: AO x 3
Impression / Plan
-
.
PCP: Dr. Webb
Cardiology: Dr. LINNEA Taylor
Impression:
Presented with recurrent dizziness/lightheadedness
NSVT
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
Orthostatic hypotension
Hypertension
h/o NSVT
h/o noncompliance
Paroxysmal atrial fibrillation, 1 episode 03/2023, refused AC
Paroxysmal atrial tachycardia
Recent admission for TIA 05/07/2024, ED visit for possible TIA 05/26/24
h/o CVA treated with tPA 2015
Possible hypertrophic cardiomyopathy
h/o syncope
h/o Linq monitor
Left bundle-branch block
Hypercholesterolemia, not on statin therapy
Poorly tolerant of metoprolol and verapamil in past
Echo 01/14/2019: Small left ventricle, EF 60-65%, LVOT gradient 7 mm at rest up to 25 mmHg with Valsalva, 46 mmHg standing and 52 mmHg standing with Valsalva, chordal Tra, mild mitral regurgitation, pulmonary artery systolic pressure 30-35 mmHg
Echo 11/24/2020: EF 60%, LVOT gradient 7 mmHg at rest and 12 mmHg with Valsalva, lying down, stage I diastolic dysfunction, moderate MR
Echo 03/24/2023: EF 60 to 65%, no LV outflow tract gradient, mild to moderate MR and normal LA, normal right heart with moderate TR and PAP 53 mmHg
Echo 05/24/2024: EF 54%, moderate MR, moderate TR, PAP 30 to 35 mmHg
Plan:
-Patient with admission 05/07 - 05/08/2024 for TIA and ED visit for possible TIA 05/26/2024 as well as hospitalization 05/23 - 05/25/2024 for dizziness and NSVT (signed out AMA) presents back to [facility] for recurrent episodes of lightheadedness
and dizziness
-She had episode of suspected NSVT in ER ~9:08AM which correlated to symptoms of her lightheadedness
-Last admission underwent cardiac catheterization 05/24/2024 which was negative for obstructive coronary disease
-We had discussed with patient transitioning outpatient Bystolic to Toprol and initiating amiodarone as well as cardiac MRI, however patient declined. Again discussed in detail with patient and daughter Trupti via telephone today the risks of
untreated NSVT. We reviewed her echocardiogram as well as cardiac catheterization results. She is now agreeable to amiodarone as well as cardiac MRI.
-she reports in past on toprol she had significant fatigue and ambulatory dysfunction
-she has history of possible HOCM with LV wall thickness of 1.2 cm by echo 05/24.
-Discussed she may require implantation of ICD, however will await results of cardiac MRI prior to committing patient to this
-given prior CVA as well as 2 recent episodes of possible TIA, would recommend OAC. she was just started on asa per ER during visit for TIA 05/26. [id number] score of 6 for age, female, HTN, history of CVA. would stop asa if starting OAC
-she has MR graded as moderate by echo 05/24/24 and 3+ by cath 05/24/24
-holding off on treatment for orthostatic hypotension at present due to baseline HTN. compression stockings
-Trupti daughter contact info [phone]
HPI: Patient came to ER today after episodes of near syncope and appearing unsteady noted by bystander at a local supermarket the patient is now being admitted with near syncope and orthostasis. Patient has a more distant history of NSVT seen on
monitor in 2020 and also a history of hypertrophic cardiomyopathy and orthostasis. A previous Linq monitor has been at end of service for years but while in place had no substantial bradycardia or arrhythmias noted. At the time of NSVT seen on
monitoring in 2021 the patient was admitted to and had cardiac catheterization that showed nonobstructive CAD. Most recently the patient has been following with Dr. Talyor once a year and at her last visit on 07/20/2023 noted an episode of
vasovagal near syncope while in [place] and this overall seems similar to previous episodes. Her BP in the office that day was 136/64 and she is taking amlodipine 2.5 mg at bedtime. Patient was admitted to 05/07/2024 until 05/08/2024 with possible
TIA and had symptoms of slurred speech in the setting of influenza. MRI of the brain was unremarkable at that time. Patient saw her PCP in the office today and BP was 140/86 initially and on recheck had improved to 128/66. Patient did not report
any lightheadedness, but when talking with me in the ER today she noted that yesterday she had an episode of near syncope that was worse than usual describing it as more intense and lasting longer than her typical episodes. After she left the PCP
office she reported near syncope while walking down the ramp and the symptoms continued when she drove herself to the grocery store and stood up from the car to walk into the store. Then while standing in a store her symptoms became worse and she
was noted to be wobbly by bystanders and was sent to ER. No loss of consciousness.
Data Reviewed
-
EKG: Tracing Personally Visualized and interpreted
Medical Tests (Nuc Med, Echo etc): Report Reviewed by me
Labs: Labs Reviewed by me
Old Records: Reviewed
[2024-05-28] MEDS: PACERONE 400 MG PO ×3 (12:53→21:40)
--- NOTE | 2024-05-28 13:26 | W.PN.UPDATE ---
Update Note
Progress Note Update
Seen and examined independent of overnight physician
States of severe lightheadedness and felt palpitation. States duration was longer compared to baseline.
Denies chest pain
General: Other (83y F in no acute distress.)
HEENT: Moist mucous membranes and PERRLA
Respiratory: Clear; No Wheezes, Rales or Rhonchi
Cardiac: S1/S2 and Regular Rhythm; No Murmur
GI: Soft, Non Tender, Non Distended and Normal Bowel Sounds
Musculoskeletal: No Clubbing, No Cyanosis and No Edema
Neuro: AO x 3 and Nonfocal/grossly intact
A/P: Patient is an 83y F with PMH significant for NSVT, atrial tachycardia and hypertension who presents to ED complaining of lightheadedness.
Lightheadedness - Recurrent / Persistent
NSVT
Atrial Tachycardia
- Seems likely that symptoms are related to arrhythmia / NSVT.
- Cardiology evaluation to resume work-up / plan.
- Patient states that she is agreeable to treatment plan.
- Pt started on amiodarone loading dose.
- Cardiac MRI
- Trend lytes.
- cards following.
ASCVD
Prior CVA
- Recent ED visit for word-finding difficulty.
- Symptoms resolved. MRI with no new findings.
- Continue ASA daily. Follow for any new complaints.
Benign Hypertension
- Stable. Continue current medications.
DVT Prophylaxis: lovenox
Code Status: DNR
[2024-05-28 16:45] LABS: Troponin I 0.152 ng/ml
[2024-05-28] MEDS: LOVENOX 40 MG SC (18:57)
[2024-05-28] MEDS: NORVASC 5 MG PO (18:58)
[2024-05-28] MEDS: SENOKOT-S 1 TABLET PO (21:40)
--- NOTE | 2024-05-28 22:49 | PTCARENOTE ---
Pt arrived from ED via stretcher into room 338-1. Pt AAOx3, able to safely ambulate into room. Pt oriented to room, call ibarra within reach, able to make needs known.
[2024-05-29 02:43] VITALS: BP 154/60; BMI 22.4
[2024-05-29 07:05] VITALS: BP 144/61
[2024-05-29] MEDS: BYSTOLIC 5 MG PO ×2 (07:57→19:44)
[2024-05-29] MEDS: PACERONE 400 MG PO ×3 (07:58→21:37)
[2024-05-29] MEDS: LOW STRENGTH ASPIRIN 81 MG PO (07:58)
[2024-05-29] MEDS: SENOKOT-S 1 TABLET PO ×2 (07:58→19:44)
[2024-05-29 08:01] LABS: Blood Urea Nitrogen 17 mg/dl (7-17); Calcium 8.7 mg/dl (8.4-10.2); Carbon Dioxide 24 mmol/L (22-30); Chloride 104 mmol/L (98-107); Estimated Creatinine Clearance 51 ml/min; Glucose 86 mg/dl (70-99); Magnesium 2.1 mg/dl (1.6-2.3); Potassium 4.5 mmol/L (3.5-5.1); Sodium 137 mmol/L (135-145); eGFR > 60.00
--- NOTE | 2024-05-29 10:29 | W.PN.CARDCBS ---
Today's Communication / Plan
-
Continue amiodarone loading
Await MRI results
May need ICD depending on MRI results
Discussed with EP how long patient needs to stay in hospital for amiodarone loading
Impression / Plan
-
.
PCP: Dr. Webb
Cardiology: Dr. LINNEA Taylor
Impression:
Presented with recurrent dizziness/lightheadedness
episode of suspected NSVT in ER ~9:08AM 05/28/24 correlated to symptoms of lightheadedness
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
Nonischemic myocardial injury
Orthostatic hypotension
Hypertension
moderate to severe MR
h/o NSVT
h/o noncompliance
Paroxysmal atrial fibrillation, 1 episode 03/2023, refused AC
Paroxysmal atrial tachycardia
Recent admission for TIA 05/07/2024, ED visit for possible TIA 05/26/24
h/o CVA treated with tPA 2015
Possible hypertrophic cardiomyopathy but only wall thickness of 1.2
h/o syncope
h/o Linq monitor
Left bundle-branch block
Hypercholesterolemia, not on statin therapy
Poorly tolerant of metoprolol and verapamil in past
Echo 01/14/2019: Small left ventricle, EF 60-65%, LVOT gradient 7 mm at rest up to 25 mmHg with Valsalva, 46 mmHg standing and 52 mmHg standing with Valsalva, chordal Tra, mild mitral regurgitation, pulmonary artery systolic pressure 30-35 mmHg
Echo 11/24/2020: EF 60%, LVOT gradient 7 mmHg at rest and 12 mmHg with Valsalva, lying down, stage I diastolic dysfunction, moderate MR
Echo 03/24/2023: EF 60 to 65%, no LV outflow tract gradient, mild to moderate MR and normal LA, normal right heart with moderate TR and PAP 53 mmHg
Echo 05/24/2024: EF 54%, moderate MR, moderate TR, PAP 30 to 35 mmHg
Plan:
Continue amiodarone loading for nonsustained VT correlating with lightheadedness
Will be discussed with the EP how long patient needs to stay in hospital for amiodarone loading
ECG okay on amiodarone
Await MRI report results
she may require implantation of ICD, however will await results of cardiac MRI
given prior CVA as well as 2 recent episodes of possible TIA, might need OAC. she was just started on asa per ER during visit for TIA 05/26. [id number] score of 6 for age, female, HTN, history of CVA. would stop asa if starting OAC
she has MR graded as moderate by echo 05/24/24 and 3+ by cath 05/24/24
holding off on treatment for orthostatic hypotension at present due to baseline HTN. compression stockings
Trupti daughter contact info [phone]
HPI: Patient came to ER today after episodes of near syncope and appearing unsteady noted by bystander at a local supermarket the patient is now being admitted with near syncope and orthostasis. Patient has a more distant history of NSVT seen on
monitor in 2020 and also a history of hypertrophic cardiomyopathy and orthostasis. A previous Linq monitor has been at end of service for years but while in place had no substantial bradycardia or arrhythmias noted. At the time of NSVT seen on
monitoring in 2020 the patient was admitted to and had cardiac catheterization that showed nonobstructive CAD. Most recently the patient has been following with Dr. Taylor once a year and at her last visit on 07/20/2023 noted an episode of
vasovagal near syncope while in [place] and this overall seems similar to previous episodes. Her BP in the office that day was 136/64 and she is taking amlodipine 2.5 mg at bedtime. Patient was admitted to 05/07/2024 until 05/08/2024 with possible
TIA and had symptoms of slurred speech in the setting of influenza. MRI of the brain was unremarkable at that time. Patient saw her PCP in the office today and BP was 140/86 initially and on recheck had improved to 128/66. Patient did not report
any lightheadedness, but when talking with me in the ER today she noted that yesterday she had an episode of near syncope that was worse than usual describing it as more intense and lasting longer than her typical episodes. After she left the PCP
office she reported near syncope while walking down the ramp and the symptoms continued when she drove herself to the grocery store and stood up from the car to walk into the store. Then while standing in a store her symptoms became worse and she
was noted to be wobbly by bystanders and was sent to ER. No loss of consciousness.
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
Subjective
Date of Service: May 29, 2024
No complaints
Objective
Labs:
05/28/24 05:31
05/29/24 06:53
Labs
Hgb 12.8 g/dL (12.0-16.0) 05/28/24 05:31
Hct 37.3 % (37.0-47.0) 05/28/24 05:31
Plt Count 219 10^3/uL (130-400) 05/28/24 05:31
Sodium 137 mmol/L (135-145) 05/29/24 06:53
Potassium 4.5 mmol/L (3.5-5.1) 05/29/24 06:53
BUN 17 mg/dl (7-17) 05/29/24 06:53
Creatinine 0.9 mg/dL (0.6-1.0) 05/29/24 06:53
Glucose 86 mg/dl (70-99) 05/29/24 06:53
Troponins
05/27/24 05/28/24 05/28/24
23:33 05:31 10:15
Troponin I 0.207 H* 0.163 H* 0.130 H*
05/28/24
16:07
Troponin I 0.152 H*
Vital Signs and I&O:
Vital Signs
Temp Pulse Resp BP Pulse Ox
97.4 F 54 17 144/61 97
05/29/24 07:05 05/29/24 07:05 05/29/24 07:05 05/29/24 07:05 05/29/24 07:05
Vital Signs
Temp Pulse Resp BP Pulse Ox
97.4 F 54 17 144/61 97
05/29/24 07:05 05/29/24 07:05 05/29/24 07:05 05/29/24 07:05 05/29/24 07:05
Physical Exam
Physical Exam
General: Well developed, well nourished in NAD.
Neck: Supple, no JVD, HJR, carotids +2 B/L, no bruits bilaterally.
Heart: Non displaced PMI, RRR, no murmurs, No S3, S4, no rubs.
Lungs: Clear to auscultation bilaterally, no wheeze, rhonchi, rubs bilaterally,
normal expiratory phase.
Extremities: No clubbing, cyanosis or edema bilaterally.
Neuro: Grossly nonfocal, awake, alert and oriented x3.
[2024-05-29 11:05] VITALS: BP 158/56
--- NOTE | 2024-05-29 12:01 | W.PN.HOSP.TC ---
Today's Communication/Plan
-
Continue with amiodarone loading dose
Continue with aspirin
Await MRI results
ICD ?
Assessment / Plan
Assessment / Plan
General: Other (83y F in no acute distress.)
HEENT: Moist mucous membranes, neck is supple
Respiratory: Clear; No Wheezes, Rales or Rhonchi
Cardiac: S1/S2 and Regular Rhythm;
GI: Soft, Non Tender, Non Distended and Normal Bowel Sounds
Musculoskeletal: No Clubbing, No Cyanosis and No Edema
Neuro: AO x 3 and Nonfocal/grossly intact
A/P: Patient is an 83y F with PMH significant for NSVT, atrial tachycardia and hypertension who presents to ED complaining of lightheadedness.
Lightheadedness - Recurrent / Persistent
NSVT
Atrial Tachycardia
Mitral regurgitation
- Seems likely that symptoms are related to arrhythmia / NSVT.
- Cardiology evaluation to resume work-up / plan.
- Patient states that she is agreeable to treatment plan.
- Pt started on amiodarone loading dose. 400mg TID
- Cardiac MRI completed-results pending. May require ICD implantation
- Trend lytes. K and mag wnl.
- cards following.
ASCVD
Prior CVA
- Recent ED visit for word-finding difficulty.
- Symptoms resolved. MRI with no new findings.
- Continue ASA daily. Follow for any new complaints.
Benign Hypertension
- Stable. Continue current medications.
Nonischemic myocardial injury
-No chest pain. Cardiology following. Continue with aspirin.
Acute on chronic hyponatremia
-Resolved. Sodium stable. Trend for now.
DVT Prophylaxis: lovenox
Code Status: DNR
Anticipated Discharge: > 48 hours
Subjective/Interval History
-
Date of Service: May 29, 2024
Denies any lightheadedness dizziness
States feeling better
Objective Data
-
Labs:
Laboratory Results
05/29/24
06:53
Sodium 137
Potassium 4.5
Chloride 104
Carbon Dioxide 24
BUN 17
Creatinine 0.9
Glucose 86
Calcium 8.7
Vital Signs:
Vital Signs
Temp Pulse Resp BP Pulse Ox
97.4 F 55 17 158/56 97
05/29/24 11:05 05/29/24 11:05 05/29/24 11:05 05/29/24 11:05 05/29/24 11:05
--- NOTE | 2024-05-29 15:04 | CM ---
Alert awake oriented patient who lives who lives alone in a 3 story home with 1 step to enter and 12 to bed bathroom. 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
feeling she can not be home alone. Offered child care attendant list.
No adaptive devices
Never had VN/SNF
Pharmacy [facility]
PCP Dr Webb
PLAN Home no needs Pt to set up care givers
[2024-05-29 15:05] VITALS: BP 155/56
[2024-05-29] MEDS: LOVENOX 40 MG SC (17:35)
[2024-05-29] MEDS: NORVASC 5 MG PO (17:35)
[2024-05-29 19:00] VITALS: BP 130/54
[2024-05-29 23:00] VITALS: BP 135/58
[2024-05-30] VITALS (9 sets, daily range): BP systolic 120–168; BP diastolic 53–72; PULSE 56–68; O2SAT 98; BMI 22.6
[2024-05-30 06:00] LABS: Blood Urea Nitrogen 18 mg/dl (7-17); Calcium 8.3 mg/dl (8.4-10.2); Carbon Dioxide 23 mmol/L (22-30); Chloride 106 mmol/L (98-107); Estimated Creatinine Clearance 58 ml/min; Glucose 88 mg/dl (70-99); Magnesium 2.1 mg/dl (1.6-2.3); Potassium 4.4 mmol/L (3.5-5.1); Sodium 138 mmol/L (135-145); eGFR > 60.00
[2024-05-30] MEDS: LOW STRENGTH ASPIRIN 81 MG PO (07:30)
[2024-05-30] MEDS: PACERONE 400 MG PO ×2 (07:30→15:30)
[2024-05-30] MEDS: BYSTOLIC 5 MG PO ×2 (07:30→22:16)
[2024-05-30] MEDS: SENOKOT-S 1 TABLET PO (07:30)
--- NOTE | 2024-05-30 11:26 | W.PN.HOSP.TC ---
Today's Communication/Plan
-
amiodarone
monitor on tele
check orthos
cards input
Assessment / Plan
Assessment / Plan
General: Other (83y F in no acute distress.)
HEENT: Moist mucous membranes, neck is supple
Respiratory: Clear; No Wheezes, Rales or Rhonchi
Cardiac: S1/S2 and Regular Rhythm;
GI: Soft, Non Tender, Non Distended and Normal Bowel Sounds
Musculoskeletal: No Clubbing, No Cyanosis and No Edema
Neuro: AO x 3 and Nonfocal/grossly intact
A/P: Patient is an 83y F with PMH significant for NSVT, atrial tachycardia and hypertension who presents to ED complaining of lightheadedness.
Lightheadedness - Recurrent / Persistent
NSVT
Atrial Tachycardia
Mitral and tricuspid regurgitation
- Seems likely that symptoms are related to arrhythmia / NSVT.
- Cardiology evaluation to resume work-up / plan.
- Patient states that she is agreeable to treatment plan.
- Pt started on amiodarone loading dose. 400mg TID. Received 2800mg loading dose so far.
- Cardiac MRI completed. May require ICD implantation
- Trend lytes. K and mag wnl.
- cards following.
Hypertrophic cardiomyopathy
-Cardiac MRI noted.
-Mavacamten can be considered. await cards input
ASCVD
Prior CVA
- Recent ED visit for word-finding difficulty.
- Symptoms resolved. MRI with no new findings.
- Continue ASA daily. Follow for any new complaints.
Benign Hypertension
- Stable. Continue current medications.
Nonischemic myocardial injury
-No chest pain. Cardiology following. Continue with aspirin.
Acute on chronic hyponatremia
-Resolved. Sodium stable. Trend for now.
DVT Prophylaxis: lovenox
Code Status: DNR
Anticipated Discharge: Today
Subjective/Interval History
-
Date of Service: May 30, 2024
States had mild lightheadedness yesterday
Objective Data
-
Labs:
Laboratory Results
05/30/24
05:11
Sodium 138
Potassium 4.4
Chloride 106
Carbon Dioxide 23
BUN 18 H
Creatinine 0.8
Glucose 88
Calcium 8.3 L
Vital Signs:
Vital Signs
Temp Pulse Resp BP Pulse Ox
98.4 F 56 17 152/63 98
05/30/24 11:08 05/30/24 11:08 05/30/24 11:08 05/30/24 11:08 05/30/24 11:08
I&O
05/29/24 05/30/24 05/31/24
06:59 06:59 06:59
Intake Total 1620 / 1620 960 / 960
Balance 1620 / 1620 960 / 960
[2024-05-30] MEDS: NORVASC 5 MG PO (17:17)
[2024-05-30] MEDS: LOVENOX 40 MG SC (17:18)
--- NOTE | 2024-05-30 17:35 | W.PN.CARDCBS ---
Today's Communication / Plan
-
RECOMMENDATIONS:
-Will cut amiodarone back to 400mg bid
-ECG in the am
-MRI looked reasonable and will ask EP to weigh in on duration of amiodarone and any additional workup or treatment options
Impression / Plan
-
.
PCP: Dr. Webb
Cardiology: Dr. LINNEA Taylor
Impression:
Presented with recurrent dizziness/lightheadedness
episode of suspected NSVT in ER ~9:08AM 05/28/24 correlated to symptoms of lightheadedness
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
Nonischemic myocardial injury
Orthostatic hypotension
Hypertension
moderate to severe MR
h/o NSVT
h/o noncompliance
Paroxysmal atrial fibrillation, 1 episode 03/2023, refused AC
Paroxysmal atrial tachycardia
Recent admission for TIA 05/07/2024, ED visit for possible TIA 05/26/24
h/o CVA treated with tPA 2015
Possible hypertrophic cardiomyopathy but only wall thickness of 1.2
h/o syncope
h/o Linq monitor
Left bundle-branch block
Hypercholesterolemia, not on statin therapy
Poorly tolerant of metoprolol and verapamil in past
TELEMETRY 05/30/24: Rashad with bigeminy
-05/29/2024: Cardiac MRI: LV: Moderate MR, TV: Moderate TR, LV: Mild LVH but no WMA. LV: Small amount of subepicardial intramural enhancement in the inferior wall of the LV involving 50-75% of the myocardium. Thin bands of enhancement in the
inferolateral wall of the mid left ventricle. This suspected mild enhancement involves less than 5% of left left ventricular myocardium. No evidence for abnormal enhancement of the interventricular septum or anterior cha.
Echo 01/14/2019: Small left ventricle, EF 60-65%, LVOT gradient 7 mm at rest up to 25 mmHg with Valsalva, 46 mmHg standing and 52 mmHg standing with Valsalva, chordal Tra, mild mitral regurgitation, pulmonary artery systolic pressure 30-35 mmHg
Echo 11/24/2020: EF 60%, LVOT gradient 7 mmHg at rest and 12 mmHg with Valsalva, lying down, stage I diastolic dysfunction, moderate MR
Echo 03/24/2023: EF 60 to 65%, no LV outflow tract gradient, mild to moderate MR and normal LA, normal right heart with moderate TR and PAP 53 mmHg
Echo 05/24/2024: EF 54%, moderate MR, moderate TR, PAP 30 to 35 mmHg
Plan:
-MRI with no significant late gadolinium enhancement.
-Continue amiodarone 400 mg p.o. 3 times daily: Amiodarone loading dose to date 2800 mg
-Will cut amiodarone to 400mg bid
-EP to evaluate
-Oral anticoagulation will need to be rediscussed with patient. Prior hx of PAF per old records and CVA/TIA's in the past.
Trupti daughter contact info [phone]
HPI: Patient came to ER today after episodes of near syncope and appearing unsteady noted by bystander at a local supermarket the patient is now being admitted with near syncope and orthostasis. Patient has a more distant history of NSVT seen on
monitor in 2020 and also a history of hypertrophic cardiomyopathy and orthostasis. A previous Linq monitor has been at end of service for years but while in place had no substantial bradycardia or arrhythmias noted. At the time of NSVT seen on
monitoring in 2020 the patient was admitted to and had cardiac catheterization that showed nonobstructive CAD. Most recently the patient has been following with Dr. Taylor once a year and at her last visit on 07/20/2023 noted an episode of
vasovagal near syncope while in [employer] and this overall seems similar to previous episodes. Her BP in the office that day was 136/64 and she is taking amlodipine 2.5 mg at bedtime. Patient was admitted to 05/07/2024 until 05/08/2024 with possible
TIA and had symptoms of slurred speech in the setting of influenza. MRI of the brain was unremarkable at that time. Patient saw her PCP in the office today and BP was 140/86 initially and on recheck had improved to 128/66. Patient did not report
any lightheadedness, but when talking with me in the ER today she noted that yesterday she had an episode of near syncope that was worse than usual describing it as more intense and lasting longer than her typical episodes. After she left the PCP
office she reported near syncope while walking down the ramp and the symptoms continued when she drove herself to the grocery store and stood up from the car to walk into the store. Then while standing in a store her symptoms became worse and she
was noted to be wobbly by bystanders and was sent to ER. No loss of consciousness.
Progress Note - Store Leader
Subjective
Date of Service: May 30, 2024
She feels very well.
Objective
Labs:
05/28/24 05:31
05/30/24 05:11
Labs
Hgb 12.8 g/dL (12.0-16.0) 05/28/24 05:31
Hct 37.3 % (37.0-47.0) 05/28/24 05:31
Plt Count 219 10^3/uL (130-400) 05/28/24 05:31
Sodium 138 mmol/L (135-145) 05/30/24 05:11
Potassium 4.4 mmol/L (3.5-5.1) 05/30/24 05:11
BUN 18 mg/dl (7-17) H 05/30/24 05:11
Creatinine 0.8 mg/dL (0.6-1.0) 05/30/24 05:11
Glucose 88 mg/dl (70-99) 05/30/24 05:11
Troponins
05/27/24 05/28/24 05/28/24
23:33 05:31 10:15
Troponin I 0.207 H* 0.163 H* 0.130 H*
05/28/24
16:07
Troponin I 0.152 H*
Vital Signs and I&O:
Vital Signs
Temp Pulse Resp BP Pulse Ox
97.4 F 58 17 168/ 97
05/30/24 15:40 05/30/24 15:40 05/30/24 15:40 05/30/24 15:40 05/30/24 15:40
Vital Signs
Temp Pulse Resp BP Pulse Ox
97.4 F 58 17 168 97
05/30/24 15:40 05/30/24 15:40 05/30/24 15:40 05/30/24 15:40 05/30/24 15:40
Intake & Output
05/27/24 05/28/24 05/29/24 05/30/24
23:59 23:59 23:59 23:59
Intake Total 1620 / 1620 1440 / 1440
Balance 1620 / 1620 1440 / 1440
Physical Exam
Physical Exam
Gen: Awake, alert and conversant
HEENT: NC/AT, sclera anicteric
Lungs: Clear
CV: Reg
Ext: no edema
[2024-05-30] MEDS: SENOKOT-S PO (20:51)
[2024-05-31 03:49] VITALS: BP 147/68
[2024-05-31 06:00] VITALS: BMI 22.6
[2024-05-31 06:49] LABS: Blood Urea Nitrogen 19 mg/dl (7-17); Calcium 8.1 mg/dl (8.4-10.2); Carbon Dioxide 24 mmol/L (22-30); Chloride 104 mmol/L (98-107); Estimated Creatinine Clearance 51 ml/min; Glucose 80 mg/dl (70-99); Magnesium 2.1 mg/dl (1.6-2.3); Potassium 4.4 mmol/L (3.5-5.1); Sodium 137 mmol/L (135-145); eGFR > 60.00
[2024-05-31 07:05] VITALS: BP 156/75
[2024-05-31] MEDS: BYSTOLIC 5 MG PO (09:23)
[2024-05-31] MEDS: LOW STRENGTH ASPIRIN 81 MG PO (09:23)
[2024-05-31] MEDS: PACERONE 400 MG PO (09:24)
[2024-05-31] MEDS: SENOKOT-S PO ×2 (09:24→19:11)
[2024-05-31 11:05] VITALS: BP 149/78
--- NOTE | 2024-05-31 12:19 | W.PN.HOSP.TC ---
Addendum entered and electronically signed by Jim Cabrera MD 05/31/24 15:56:
Patient with mild bradycardia and lightheadedness later in the day. Discussed with cardiology recommending to hold discharge and reduce beta-josé manuel and amiodarone.
Original Note:
Today's Communication/Plan
-
Await cardiology input
Continue with amiodarone 400 mg twice daily
Assessment / Plan
Assessment / Plan
General: Other (83y F in no acute distress.)
HEENT: Moist mucous membranes, neck is supple
Respiratory: Clear; No Wheezes, Rales or Rhonchi
Cardiac: S1/S2 and Regular Rhythm;
GI: Soft, Non Tender, Non Distended and Normal Bowel Sounds
Musculoskeletal: No Clubbing, No Cyanosis and No Edema
Neuro: AO x 3 and Nonfocal/grossly intact
A/P: Patient is an 83y F with PMH significant for NSVT, atrial tachycardia and hypertension who presents to ED complaining of lightheadedness.
Lightheadedness - Recurrent / Persistent
NSVT
Atrial Tachycardia
Mitral and tricuspid regurgitation
- Seems likely that symptoms are related to arrhythmia / NSVT.
- Pt started on amiodarone loading dose. 400mg TID and now dose reduced to 400 mg twice daily.
- Cardiac MRI completed. If no plan for ICD implantation continue with amiodarone and outpatient follow-up?
- Trend lytes. K and mag wnl. Anticoagulation per cardiology.
- cards following.
Hypertrophic cardiomyopathy
-Cardiac MRI noted.
-Mavacamten can be considered. await cards input
ASCVD
Prior CVA
- Recent ED visit for word-finding difficulty.
- Symptoms resolved. MRI with no new findings.
- Continue ASA daily. Follow for any new complaints.
Benign Hypertension
- Stable. Continue current medications.
Nonischemic myocardial injury
-No chest pain. Cardiology following. Continue with aspirin.
Acute on chronic hyponatremia
-Resolved. Sodium stable. Trend for now.
DVT Prophylaxis: lovenox
Code Status: DNR
PT/OT home health
Anticipated Discharge: Today
Subjective/Interval History
-
Date of Service: May 31, 2024
Denies any episode of lightheadedness or dizziness
Objective Data
-
Labs:
Laboratory Results
05/31/24
05:11
Sodium 137
Potassium 4.4
Chloride 104
Carbon Dioxide 24
BUN 19 H
Creatinine 0.9
Glucose 80
Calcium 8.1 L
Vital Signs:
Vital Signs
Temp Pulse Resp BP Pulse Ox
97.4 F 59 17 149/78 96
05/31/24 11:05 05/31/24 11:05 05/31/24 11:05 05/31/24 11:05 05/31/24 11:05
I&O
05/30/24 05/31/24 06/01/24
06:59 06:59 06:59
Intake Total 1620 / 1620 1440 / 1440
Balance 1620 / 1620 1440 / 1440
Data Reviewed
-
Total Time Spent with Patient (in minutes): 55
--- NOTE | 2024-05-31 14:03 | W.PN.CARDCBS ---
Today's Communication / Plan
-
Lightheaded, bradycardic
Decrease amiodarone from 400 mg twice daily to 200 mg twice daily
Decrease nebivolol from 5 mg twice daily to once daily
Continue amlodipine
If lightheadedness resolved and patient feels well okay for discharge tomorrow afternoon.
See below for specifics
Impression / Plan
-
.
PCP: Dr. Webb
Cardiology: Dr. LINNEA Taylor
Impression:
Presented with recurrent dizziness/lightheadedness
episode of suspected NSVT in ER ~9:08AM 05/28/24 correlated to symptoms of lightheadedness
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
Nonischemic myocardial injury
Orthostatic hypotension
Hypertension
moderate to severe MR
h/o NSVT
h/o noncompliance
Paroxysmal atrial fibrillation, 1 episode 03/2023, refused AC
Paroxysmal atrial tachycardia
Recent admission for TIA 05/07/2024, ED visit for possible TIA 05/26/24
h/o CVA treated with tPA 2015
Possible hypertrophic cardiomyopathy but only wall thickness of 1.2
h/o syncope
h/o Linq monitor
Left bundle-branch block
Hypercholesterolemia, not on statin therapy
Poorly tolerant of metoprolol and verapamil in past
TELEMETRY 05/30/24: Rashad with bigeminy
-05/29/2024: Cardiac MRI: LV: Moderate MR, TV: Moderate TR, LV: Mild LVH but no WMA. LV: Small amount of subepicardial intramural enhancement in the inferior wall of the LV involving 50-75% of the myocardium. Thin bands of enhancement in the
inferolateral wall of the mid left ventricle. This suspected mild enhancement involves less than 5% of left left ventricular myocardium. No evidence for abnormal enhancement of the interventricular septum or anterior cha.
Echo 01/14/2019: Small left ventricle, EF 60-65%, LVOT gradient 7 mm at rest up to 25 mmHg with Valsalva, 46 mmHg standing and 52 mmHg standing with Valsalva, chordal Tra, mild mitral regurgitation, pulmonary artery systolic pressure 30-35 mmHg
Echo 11/24/2020: EF 60%, LVOT gradient 7 mmHg at rest and 12 mmHg with Valsalva, lying down, stage I diastolic dysfunction, moderate MR
Echo 03/24/2023: EF 60 to 65%, no LV outflow tract gradient, mild to moderate MR and normal LA, normal right heart with moderate TR and PAP 53 mmHg
Echo 05/24/2024: EF 54%, moderate MR, moderate TR, PAP 30 to 35 mmHg
Plan:
Overall she is improved regarding nonsustained VT, on amiodarone and nebivolol.
However, she is now somewhat lightheaded and is bradycardic. Still relatively hypertensive.
She does not feel that she is strong enough to go home today.
We will decrease amiodarone from 400 mg twice daily to 200 mg twice daily. I will cut nebivolol from 5 mg twice daily to once daily. Given her blood pressure, for now I will continue amlodipine
If she is feeling well by lunch tomorrow would not object to discharge.
If stable, recommended cardiac medications at discharge:
Amiodarone 200 mg twice daily for 4 weeks then once daily
Nebivolol 5 mg every morning
Amlodipine 5 mg nightly
Aspirin 81 mg a day
Patient has consistently refused anticoagulation and statin therapy
Trupti daughter contact info [phone]
HPI: Patient came to ER today after episodes of near syncope and appearing unsteady noted by bystander at a local supermarket the patient is now being admitted with near syncope and orthostasis. Patient has a more distant history of NSVT seen on
monitor in 2020 and also a history of hypertrophic cardiomyopathy and orthostasis. A previous Linq monitor has been at end of service for years but while in place had no substantial bradycardia or arrhythmias noted. At the time of NSVT seen on
monitoring in 2020 the patient was admitted to and had cardiac catheterization that showed nonobstructive CAD. Most recently the patient has been following with Dr. Taylor once a year and at her last visit on 07/20/2023 noted an episode of
vasovagal near syncope while in [employer] and this overall seems similar to previous episodes. Her BP in the office that day was 136/64 and she is taking amlodipine 2.5 mg at bedtime. Patient was admitted to 05/07/2024 until 05/08/2024 with possible
TIA and had symptoms of slurred speech in the setting of influenza. MRI of the brain was unremarkable at that time. Patient saw her PCP in the office today and BP was 140/86 initially and on recheck had improved to 128/66. Patient did not report
any lightheadedness, but when talking with me in the ER today she noted that yesterday she had an episode of near syncope that was worse than usual describing it as more intense and lasting longer than her typical episodes. After she left the PCP
office she reported near syncope while walking down the ramp and the symptoms continued when she drove herself to the grocery store and stood up from the car to walk into the store. Then while standing in a store her symptoms became worse and she
was noted to be wobbly by bystanders and was sent to ER. No loss of consciousness.
Progress Note - Metal Cleaner
Subjective
Date of Service: May 31, 2024:
She has been lightheaded while ambulating. Does not feel that she can go home.
PMH/PSH/FH/SH: Reviewed
Allergies: Sulfa
Current meds: Amlodipine 5 mg a day,Aspirin 81 mg a day, Nebivolol 5 mg twice daily, Lovenox, Senokot, Amiodarone 400 twice daily
149/78, pulse 59, resp rate 17, temp 36.3, weight is 71.6 kg, head neck exam unremarkable, lungs are clear, soft systolic murmur at base, JVD okay, no edema, abdomen benign neuro, musculoskeletal nonfocal
BUN/creatinine 19 and 0.9, potassium 4.4
Telemetry: Sinus bradycardia, intermittent ventricular bigeminy, no nonsustained VT
Objective
Labs:
05/28/24 05:31
05/31/24 05:11
Labs
Hgb 12.8 g/dL (12.0-16.0) 05/28/24 05:31
Hct 37.3 % (37.0-47.0) 05/28/24 05:31
Plt Count 219 10^3/uL (130-400) 05/28/24 05:31
Sodium 137 mmol/L (135-145) 05/31/24 05:11
Potassium 4.4 mmol/L (3.5-5.1) 05/31/24 05:11
BUN 19 mg/dl (7-17) H 05/31/24 05:11
Creatinine 0.9 mg/dL (0.6-1.0) 05/31/24 05:11
Glucose 80 mg/dl (70-99) 05/31/24 05:11
Troponins
05/28/24
16:07
Troponin I 0.152 H*
Vital Signs and I&O:
Vital Signs
Temp Pulse Resp BP Pulse Ox
36.3 C 59 17 149/78 96
05/31/24 11:05 05/31/24 11:05 05/31/24 11:05 05/31/24 11:05 05/31/24 11:05
Vital Signs
Temp Pulse Resp BP Pulse Ox
36.3 C 59 17 149/78 96
05/31/24 11:05 05/31/24 11:05 05/31/24 11:05 05/31/24 11:05 05/31/24 11:05
Intake & Output
05/29/24 05/30/24 05/31/24 06/01/24
07:59 07:59 07:59 07:59
Intake Total 2580 / 2580 480 / 480
Balance 2580 / 2580 480 / 480
Physical Exam
Physical Exam
See above
[2024-05-31 15:05] VITALS: BP 148/58
[2024-05-31] MEDS: PACERONE 200 MG PO (15:53)
--- NOTE | 2024-05-31 17:48 | CM ---
Spoke with pt she said that she did not want [facility]N because they do not stay 24 hours a day.
Pt given a hearing healthcare practitioner list. Explained that care givers are not covered by insurance and ptt will need to contact and set up.
Pt continue to be light headed.
Md adjusted medicines.
PLAN Home declined VN
[2024-05-31] MEDS: NORVASC 5 MG PO (18:02)
[2024-05-31] MEDS: LOVENOX 40 MG SC (18:03)
[2024-05-31 19:00] VITALS: BP 154/54
[2024-05-31] MEDS: SENOKOT-S 1 TABLET PO (20:56)
[2024-05-31 23:00] VITALS: BP 136/54; BP 153/54; BP 166/61; PULSE 60; PULSE 64
[2024-06-01] VITALS (7 sets, daily range): BP systolic 130–164; BP diastolic 52–71; PULSE 32–72; BMI 22.3; BMI 22.6
[2024-06-01 09:09] LABS: Blood Urea Nitrogen 20 mg/dl (7-17); Calcium 8.7 mg/dl (8.4-10.2); Carbon Dioxide 21 mmol/L (22-30); Chloride 104 mmol/L (98-107); Estimated Creatinine Clearance 51 ml/min; Glucose 105 mg/dl (70-99); Magnesium 2.3 mg/dl (1.6-2.3); Potassium 4.4 mmol/L (3.5-5.1); Sodium 137 mmol/L (135-145); eGFR > 60.00
[2024-06-01] MEDS: LOW STRENGTH ASPIRIN 81 MG PO (09:12)
[2024-06-01] MEDS: SENOKOT-S 1 TABLET PO (09:12)
[2024-06-01] MEDS: BYSTOLIC PO (09:12)
[2024-06-01] MEDS: PACERONE 200 MG PO ×2 (09:13→17:40)
--- NOTE | 2024-06-01 09:56 | W.PN.CARDCBS ---
Today's Communication / Plan
-
Check orthostatic VS
IVF bolus
Impression / Plan
-
.
PCP: Dr. Webb
Cardiology: Dr. LINNEA Taylor
Impression:
Presented with recurrent dizziness/lightheadedness
episode of suspected NSVT in ER ~9:08AM 05/28/24 correlated to symptoms of lightheadedness
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
Nonischemic myocardial injury
Orthostatic hypotension
Hypertension
moderate to severe MR
h/o NSVT
h/o noncompliance
Paroxysmal atrial fibrillation, 1 episode 03/2023, refused AC
Paroxysmal atrial tachycardia
Recent admission for TIA 05/07/2024, ED visit for possible TIA 05/26/24
h/o CVA treated with tPA 2015
Possible hypertrophic cardiomyopathy but only wall thickness of 1.2
h/o syncope
h/o Linq monitor
Left bundle-branch block
Hypercholesterolemia, not on statin therapy
Poorly tolerant of metoprolol and verapamil in past
TELEMETRY 05/30/24: Rashad with bigeminy
-05/29/2024: Cardiac MRI: LV: Moderate MR, TV: Moderate TR, LV: Mild LVH but no WMA. LV: Small amount of subepicardial intramural enhancement in the inferior wall of the LV involving 50-75% of the myocardium. Thin bands of enhancement in the
inferolateral wall of the mid left ventricle. This suspected mild enhancement involves less than 5% of left left ventricular myocardium. No evidence for abnormal enhancement of the interventricular septum or anterior cha.
Echo 01/14/2019: Small left ventricle, EF 60-65%, LVOT gradient 7 mm at rest up to 25 mmHg with Valsalva, 46 mmHg standing and 52 mmHg standing with Valsalva, chordal Tra, mild mitral regurgitation, pulmonary artery systolic pressure 30-35 mmHg
Echo 11/24/2020: EF 60%, LVOT gradient 7 mmHg at rest and 12 mmHg with Valsalva, lying down, stage I diastolic dysfunction, moderate MR
Echo 03/24/2023: EF 60 to 65%, no LV outflow tract gradient, mild to moderate MR and normal LA, normal right heart with moderate TR and PAP 53 mmHg
Echo 05/24/2024: EF 54%, moderate MR, moderate TR, PAP 30 to 35 mmHg
Plan:
Regarding nonsustained ventricular tachycardia, rhythm has improved improved on amiodarone and nebivolol.
Due to some lightheadedness as well as mild bradycardia amiodarone was reduced on May 31, 2024 from 400 mg twice daily to 200 mg twice daily and nebivolol was reduced from 5 mg twice daily to once daily.
She has mild hypertension for which she is treated with amlodipine as well as nebivolol.
Blood pressure should be further evaluated as an outpatient with consideration for up titration of antihypertensive drug therapy or addition of a third antihypertensive drug.
She describes getting 'dizzy' when arising from bed to go to t he bathroom and while this has been a chronic issue she now feels the severity has worsened
I have ordered orthostatic vital signs
Will give a small fluid bolus (IV saline 250 cc today)
I have no cardiac objection to discharge
Recommended cardiac medications at discharge:
-Amiodarone 200 mg twice daily for 4 weeks then once daily
-Nebivolol 5 mg every morning
-Amlodipine 5 mg nightly
-Aspirin 81 mg a day
Patient has consistently refused anticoagulation and statin therapy
As an outpatient there can be discussion regarding consideration for ICD implantation given her diagnosis of hypertrophic cardiomyopathy and high risk feature of nonsustained VT.
Trupti daughter contact info [phone]
total time 55 min
HPI: Patient came to ER today after episodes of near syncope and appearing unsteady noted by bystander at a local supermarket the patient is now being admitted with near syncope and orthostasis. Patient has a more distant history of NSVT seen on
monitor in 2020 and also a history of hypertrophic cardiomyopathy and orthostasis. A previous Linq monitor has been at end of service for years but while in place had no substantial bradycardia or arrhythmias noted. At the time of NSVT seen on
monitoring in 2020 the patient was admitted to and had cardiac catheterization that showed nonobstructive CAD. Most recently the patient has been following with Dr. Taylor once a year and at her last visit on 07/20/2023 noted an episode of
vasovagal near syncope while in [employer] and this overall seems similar to previous episodes. Her BP in the office that day was 136/64 and she is taking amlodipine 2.5 mg at bedtime. Patient was admitted to 05/07/2024 until 05/08/2024 with possible
TIA and had symptoms of slurred speech in the setting of influenza. MRI of the brain was unremarkable at that time. Patient saw her PCP in the office today and BP was 140/86 initially and on recheck had improved to 128/66. Patient did not report
any lightheadedness, but when talking with me in the ER today she noted that yesterday she had an episode of near syncope that was worse than usual describing it as more intense and lasting longer than her typical episodes. After she left the PCP
office she reported near syncope while walking down the ramp and the symptoms continued when she drove herself to the grocery store and stood up from the car to walk into the store. Then while standing in a store her symptoms became worse and she
was noted to be wobbly by bystanders and was sent to ER. No loss of consciousness.
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
Subjective
Date of Service: June 01, 2024
She complains of dizziness when standing, chronic but recently worsened
Objective
Labs:
05/28/24 05:31
06/01/24 08:10
Labs
Hgb 12.8 g/dL (12.0-16.0) 05/28/24 05:31
Hct 37.3 % (37.0-47.0) 05/28/24 05:31
Plt Count 219 10^3/uL (130-400) 05/28/24 05:31
Sodium 137 mmol/L (135-145) 06/01/24 08:10
Potassium 4.4 mmol/L (3.5-5.1) 06/01/24 08:10
BUN 20 mg/dl (7-17) H 06/01/24 08:10
Creatinine 0.9 mg/dL (0.6-1.0) 06/01/24 08:10
Glucose 105 mg/dl (70-99) H 06/01/24 08:10
Vital Signs and I&O:
Vital Signs
Temp Pulse Resp BP Pulse Ox
97.5 F 54 14 156/65 96
06/01/24 07:30 06/01/24 07:30 06/01/24 07:30 06/01/24 07:30 06/01/24 07:30
Vital Signs
Temp Pulse Resp BP Pulse Ox
97.5 F 54 14 156/65 96
06/01/24 07:30 06/01/24 07:30 06/01/24 07:30 06/01/24 07:30 06/01/24 07:30
Intake & Output
05/30/24 05/31/24 06/01/24 06/02/24
06:59 06:59 06:59 06:59
Intake Total 1620 / 1620 1440 / 1440 1740 / 1740
Balance 1620 / 1620 1440 / 1440 1740 / 1740
Physical Exam
Physical Exam
well appearing, no distress
RRR, Nl S1 amd S2, no S3 pr S4, no rubs, nl PMI
Lungs CTA b/l
LE with trace pretibial edema b/l
[2024-06-01] MEDS: NSS 250 IV (11:04)
--- NOTE | 2024-06-01 11:49 | PTCARENOTE ---
Pt co lightheaded ness. tele was alarming HR 40s with bigemeny. Apical was 30s tele showed 67, [employer] notified no new orders obtained . IV NSS bolus ordered and infusing
--- NOTE | 2024-06-01 12:11 | PTCARENOTE ---
Tele now with first degree block with monomorphinc coupletes every other beat. pt asymptomatic, apical is only 42, aware
--- NOTE | 2024-06-01 12:17 | W.PN.HOSP.TC ---
Today's Communication/Plan
-
IVF today
dec amiodarone
plan for tentative dc tomm
Assessment / Plan
Assessment / Plan
General: Other (83y F in no acute distress.)
HEENT: Moist mucous membranes, neck is supple
Respiratory: Clear; No Wheezes, Rales or Rhonchi
Cardiac: S1/S2 and Regular Rhythm;
GI: Soft, Non Tender, Non Distended and Normal Bowel Sounds
Musculoskeletal: No Clubbing, No Cyanosis and No Edema
Neuro: AO x 3 and Nonfocal/grossly intact
A/P: Patient is an 83y F with PMH significant for NSVT, atrial tachycardia and hypertension who presents to ED complaining of lightheadedness.
Lightheadedness - Recurrent / Persistent
NSVT
Atrial Tachycardia
Mitral and tricuspid regurgitation
- Seems likely that symptoms are related to arrhythmia / NSVT.
- Pt started on amiodarone loading dose. 400mg TID and now dose reduced to 400 mg twice daily. and now further downtitrated to 200mg BID. Bystolic is 5mg daily
- Cardiac MRI completed. If no plan for ICD implantation continue with amiodarone and outpatient follow-up?
- Trend lytes. K and mag wnl. Anticoagulation per cardiology.
- cards following. Will give IVF. OOB to chair. Monitor overnight.
Hypertrophic cardiomyopathy
-Cardiac MRI noted.
-Mavacamten can be considered. await cards input
ASCVD
Prior CVA
- Recent ED visit for word-finding difficulty.
- Symptoms resolved. MRI with no new findings.
- Continue ASA daily. Follow for any new complaints.
Benign Hypertension
- Stable. Continue current medications.
Nonischemic myocardial injury
-No chest pain. Cardiology following. Continue with aspirin.
Acute on chronic hyponatremia
-Resolved. Sodium stable. Trend for now.
DVT Prophylaxis: lovenox
Code Status: DNR
PT/OT home health
Anticipated Discharge: Within 24 hours
Subjective/Interval History
-
Date of Service: June 01, 2024
states feels lightheaded
laying in bed
not getting out of bed
Objective Data
-
Labs:
Laboratory Results
06/01/24
08:10
Sodium 137
Potassium 4.4
Chloride 104
Carbon Dioxide 21 L
BUN 20 H
Creatinine 0.9
Glucose 105 H
Calcium 8.7
Vital Signs:
Vital Signs
Temp Pulse Resp BP Pulse Ox
97.5 F 54 14 156/65 96
06/01/24 07:30 06/01/24 07:30 06/01/24 07:30 06/01/24 07:30 06/01/24 07:30
I&O
05/31/24 06/01/24 06/02/24
06:59 06:59 06:59
Intake Total 1440 / 1440 1740 / 1740
Balance 1440 / 1440 1740 / 1740
[2024-06-01] MEDS: LR 1000 IV (14:40)
[2024-06-01] MEDS: LOVENOX 40 MG SC (17:40)
[2024-06-01] MEDS: NORVASC 5 MG PO (17:41)
[2024-06-01] MEDS: SENOKOT-S PO (20:35)
[2024-06-02 03:25] VITALS: BP 158/65
[2024-06-02 06:00] VITALS: BMI 22.4
[2024-06-02 06:54] LABS: Blood Urea Nitrogen 18 mg/dl (7-17); Calcium 8.7 mg/dl (8.4-10.2); Carbon Dioxide 22 mmol/L (22-30); Chloride 106 mmol/L (98-107); Estimated Creatinine Clearance 51 ml/min; Glucose 91 mg/dl (70-99); Potassium 4.2 mmol/L (3.5-5.1); Sodium 138 mmol/L (135-145); eGFR > 60.00
[2024-06-02 07:30] VITALS: BP 176/73
[2024-06-02] MEDS: PACERONE 200 MG PO ×2 (10:18→15:32)
[2024-06-02] MEDS: LOW STRENGTH ASPIRIN 81 MG PO (10:18)
[2024-06-02] MEDS: SENOKOT-S 1 TABLET PO (10:19)
[2024-06-02] MEDS: BYSTOLIC 5 MG PO (10:19)
--- NOTE | 2024-06-02 10:54 | W.PN.CARDCBS ---
Today's Communication / Plan
-
Okay for discharge to home today from a cardiac standpoint
Impression / Plan
-
.
PCP: Dr. Webb
Cardiology: Dr. LINNEA Taylor
Impression:
Presented with recurrent dizziness/lightheadedness
episode of suspected NSVT in ER ~9:08AM 05/28/24 correlated to symptoms of lightheadedness
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
Nonischemic myocardial injury
Orthostatic hypotension
Hypertension
moderate to severe MR
h/o NSVT
h/o noncompliance
Paroxysmal atrial fibrillation, 1 episode 03/2023, refused AC
Paroxysmal atrial tachycardia
Recent admission for TIA 05/07/2024, ED visit for possible TIA 05/26/24
h/o CVA treated with tPA 2015
Possible hypertrophic cardiomyopathy but only wall thickness of 1.2
h/o syncope
h/o Linq monitor
Left bundle-branch block
Hypercholesterolemia, not on statin therapy
Poorly tolerant of metoprolol and verapamil in past
TELEMETRY 05/30/24: Rashad with bigeminy
-05/29/2024: Cardiac MRI: LV: Moderate MR, TV: Moderate TR, LV: Mild LVH but no WMA. LV: Small amount of subepicardial intramural enhancement in the inferior wall of the LV involving 50-75% of the myocardium. Thin bands of enhancement in the
inferolateral wall of the mid left ventricle. This suspected mild enhancement involves less than 5% of left left ventricular myocardium. No evidence for abnormal enhancement of the interventricular septum or anterior cha.
Echo 01/14/2019: Small left ventricle, EF 60-65%, LVOT gradient 7 mm at rest up to 25 mmHg with Valsalva, 46 mmHg standing and 52 mmHg standing with Valsalva, chordal Tra, mild mitral regurgitation, pulmonary artery systolic pressure 30-35 mmHg
Echo 11/24/2020: EF 60%, LVOT gradient 7 mmHg at rest and 12 mmHg with Valsalva, lying down, stage I diastolic dysfunction, moderate MR
Echo 03/24/2023: EF 60 to 65%, no LV outflow tract gradient, mild to moderate MR and normal LA, normal right heart with moderate TR and PAP 53 mmHg
Echo 05/24/2024: EF 54%, moderate MR, moderate TR, PAP 30 to 35 mmHg
Plan:
Regarding nonsustained ventricular tachycardia, rhythm has improved improved on amiodarone and nebivolol.
Due to some lightheadedness as well as mild bradycardia amiodarone was reduced on May 31, 2024 from 400 mg twice daily to 200 mg twice daily and nebivolol was reduced from 5 mg twice daily to once daily.
She has mild hypertension for which she is treated with amlodipine as well as nebivolol.
Blood pressure should be further evaluated as an outpatient with consideration for up titration of antihypertensive drug therapy or addition of a third antihypertensive drug.
She describes getting 'dizzy' when arising from bed to go to t he bathroom and while this has been a chronic issue felt that recently the severity has worsened
I was concerned for some degree of orthostasis and ordered 250 cc of normal saline on June 01, 2024.
Orthostatic vital signs 06/01/24 did not show any significant blood pressure drop or heart rate drop
She tells me today that she is back to her baseline chronic mild dizziness when she stands and feels she is at her overall recent baseline and would like to go home today.
I have no cardiac objection to discharge
Recommended cardiac medications at discharge:
-Amiodarone 200 mg twice daily for 4 weeks then once daily
-Nebivolol 5 mg every morning
-Amlodipine 5 mg nightly
-Aspirin 81 mg a day
Patient has consistently refused anticoagulation and statin therapy
As an outpatient there can be discussion regarding consideration for ICD implantation given her diagnosis of hypertrophic cardiomyopathy and high risk feature of nonsustained VT.
Trupti daughter contact info [phone]
HPI: Patient came to ER today after episodes of near syncope and appearing unsteady noted by bystander at a local supermarket the patient is now being admitted with near syncope and orthostasis. Patient has a more distant history of NSVT seen on
monitor in 2020 and also a history of hypertrophic cardiomyopathy and orthostasis. A previous Linq monitor has been at end of service for years but while in place had no substantial bradycardia or arrhythmias noted. At the time of NSVT seen on
monitoring in 2020 the patient was admitted to and had cardiac catheterization that showed nonobstructive CAD. Most recently the patient has been following with Dr. Taylor once a year and at her last visit on 07/20/2023 noted an episode of
vasovagal near syncope while in [employer] and this overall seems similar to previous episodes. Her BP in the office that day was 136/64 and she is taking amlodipine 2.5 mg at bedtime. Patient was admitted to 05/07/2024 until 05/08/2024 with possible
TIA and had symptoms of slurred speech in the setting of influenza. MRI of the brain was unremarkable at that time. Patient saw her PCP in the office today and BP was 140/86 initially and on recheck had improved to 128/66. Patient did not report
any lightheadedness, but when talking with me in the ER today she noted that yesterday she had an episode of near syncope that was worse than usual describing it as more intense and lasting longer than her typical episodes. After she left the PCP
office she reported near syncope while walking down the ramp and the symptoms continued when she drove herself to the grocery store and stood up from the car to walk into the store. Then while standing in a store her symptoms became worse and she
was noted to be wobbly by bystanders and was sent to ER. No loss of consciousness.
Progress Note - Rug Designer
Subjective
Date of Service: June 02, 2024
She tells me that her dizziness is no longer severe when she stands, she tells me is back to her baseline, chronic.
Objective
Labs:
05/28/24 05:31
06/02/24 05:44
Labs
Hgb 12.8 g/dL (12.0-16.0) 05/28/24 05:31
Hct 37.3 % (37.0-47.0) 05/28/24 05:31
Plt Count 219 10^3/uL (130-400) 05/28/24 05:31
Sodium 138 mmol/L (135-145) 06/02/24 05:44
Potassium 4.2 mmol/L (3.5-5.1) 06/02/24 05:44
BUN 18 mg/dl (7-17) H 06/02/24 05:44
Creatinine 0.9 mg/dL (0.6-1.0) 06/02/24 05:44
Glucose 91 mg/dl (70-99) 06/02/24 05:44
Vital Signs and I&O:
Vital Signs
Temp Pulse Resp BP Pulse Ox
98.2 F 61 16 176/73 98
06/02/24 07:30 06/02/24 07:30 06/02/24 07:30 06/02/24 07:30 06/02/24 07:30
Vital Signs
Temp Pulse Resp BP Pulse Ox
98.2 F 61 16 176/73 98
06/02/24 07:30 06/02/24 07:30 06/02/24 07:30 06/02/24 07:30 06/02/24 07:30
Intake & Output
05/31/24 06/01/24 06/02/24 06/03/24
06:59 06:59 06:59 06:59
Intake Total 1440 / 1440 1740 / 1740 1080 / 1080
Balance 1440 / 1440 1740 / 1740 1080 / 1080
Physical Exam
Physical Exam
well appearing, no distress
RRR, Nl S1 amd S2, no S3 pr S4, no rubs, nl PMI
Lungs CTA b/l
LE with trace pretibial edema b/l
Neurologic exam is grossly nonfocal
--- NOTE | 2024-06-02 11:39 | W.PN.HOSP.TC ---
Today's Communication/Plan
-
amio per cards
pt re-eval
Assessment / Plan
Assessment / Plan
General: Other (83y F in no acute distress.)
HEENT: Moist mucous membranes, neck is supple
Respiratory: Clear; No Wheezes, Rales or Rhonchi
Cardiac: S1/S2 and Regular Rhythm;
GI: Soft, Non Tender, Non Distended and Normal Bowel Sounds
Musculoskeletal: No Clubbing, No Cyanosis and No Edema
Neuro: AO x 3 and Nonfocal/grossly intact
A/P: Patient is an 83y F with PMH significant for NSVT, atrial tachycardia and hypertension who presents to ED complaining of lightheadedness.
Lightheadedness - Recurrent / Persistent
NSVT
Atrial Tachycardia
Mitral and tricuspid regurgitation
- Seems likely that symptoms are related to arrhythmia / NSVT.
- Pt started on amiodarone loading dose. 400mg TID and now dose reduced to 400 mg twice daily. and now further downtitrated to 200mg BID for 4 weeks then daily. Bystolic is 5mg daily
- Cardiac MRI completed. If no plan for ICD implantation continue with amiodarone and outpatient follow-up?
- Trend lytes. K and mag wnl. Anticoagulation per cardiology.
- cards following. dc today.
Hypertrophic cardiomyopathy
-Cardiac MRI noted.
-Mavacamten can be considered. await cards input
ASCVD
Prior CVA
- Recent ED visit for word-finding difficulty.
- Symptoms resolved. MRI with no new findings.
- Continue ASA daily. Follow for any new complaints.
Benign Hypertension
- Stable. Continue current medications.
Nonischemic myocardial injury
-No chest pain. Cardiology following. Continue with aspirin.
Acute on chronic hyponatremia
-Resolved. Sodium stable. Trend for now.
DVT Prophylaxis: lovenox
Code Status: DNR
PT/OT home health-pt refused
d/w with cards
More than 30 minutes spent in discharge including
Final examination of the patient
Summarizing hospital stay
Instructions for continuing care to all relevant caregivers
Preparation of discharge records, prescriptions, and referral forms
Total time spent (in minutes): 50
Anticipated Discharge: Today
Subjective/Interval History
-
Date of Service: June 02, 2024
HR 74 on tele
no lightheadedness
walking to bathroom without difficulty
Objective Data
-
Labs:
Laboratory Results
06/02/24
05:44
Sodium 138
Potassium 4.2
Chloride 106
Carbon Dioxide 22
BUN 18 H
Creatinine 0.9
Glucose 91
Calcium 8.7
Vital Signs:
Vital Signs
Temp Pulse Resp BP Pulse Ox
98.2 F 61 16 176/73 98
06/02/24 07:30 06/02/24 07:30 06/02/24 07:30 06/02/24 07:30 06/02/24 07:30
I&O
06/01/24 06/02/24 06/03/24
06:59 06:59 06:59
Intake Total 1740 / 1740 1080 / 1080
Balance 1740 / 1740 1080 / 1080
--- NOTE | 2024-06-02 11:44 | W.DCSUMMARY ---
Discharge Summary
Discharge Data
Date of Admission: 05/28/24
Date of Discharge: 06/02/24
-
Pending Results: No
Hospital Course
Patient is an 83y F with PMH significant for NSVT, atrial tachycardia and hypertension who presents to ED complaining of lightheadedness. In the recent prior hospitalization patient did refuse medical treatment and left. Patient also has a
history of atrial fibrillation and has refused anticoagulation. Patient returned with lightheadedness with persistent for prolonged period of time. With suspected due to NSVT and patient was eval by cardiology. Patient underwent evaluation by
tissue recovery technician and patient was on amiodarone loading dose. Patient also underwent MRI. Patient with improvement in heart rate. Lightheadedness resolved. Received IV fluid which was stopped as patient with appropriate oral intake. Patient with
episode of bradycardia and amiodarone dose was decreased to 200 mg daily. Patient Bystolic dose frequency was also decreased to daily from twice daily. Patient was evaluated by billboard poster helper. Patient was eval by physical therapy. Patient
will be discharged home on 200 mg a amiodarone twice daily for 4 weeks then once a day. Patient went to follow-up outpatient with cardiology.
Discharge Plan
-
Patient Disposition: Home (Routine Discharge)
Discharge Diagnosis/Procedures: Lightheaded dizziness likely secondary to suspected NSVT
Condition: Fair
Diet: Regular
Activity: As tolerated
Driving Restrictions: As prior to admission
Activity Restrictions/Additional Instructions:
Amiodarone 200 mg twice daily for 4 weeks then once daily
Referrals:
Kilo Webb PA-C [Family Provider] - in less than 1 week
Angel Luis Taylor MD [Active] - 06/25/24 3:20 pm (You have a follow up visit with Dr. Taylor at the [place] office. Please call with questions. )
Additional Discharge Medication Instructions: Bystolic frequency decreased to once daily.
Prescriptions:
New
amiodarone 200 mg Tablet
200 mg PO BID AT 0800,1600 Qty: 60 0RF
Rx Instructions:
Amiodarone 200 mg twice daily for 4 weeks then once daily
Continued
zinc sulfate 50 mg zinc (220 mg) Tablet
50 mg PO QPM
ascorbic acid (vitamin C) [Vitamin C] 500 mg Tablet
500 mg PO QPM
cranberry 500 mg Capsule
500 mg PO QPM
cholecalciferol (vitamin D3) [Vitamin D3] 25 mcg (1,000 unit) Tablet
25 mcg PO QPM
amlodipine 5 mg tablet
5 mg PO QPM
aspirin 81 mg Tablet,Chewable
81 mg PO DAILY
Changed
nebivolol [Bystolic] 5 mg Tablet
5 mg PO DAILY Qty: 0 0RF
Discharge Orders:
Discharge Patient (As Directed); Ordered 06/02/24
Ordered By: Jim Cabrera
Discharge Date and Time
Print Language: SALVADOREAN
[2024-06-02 11:55] VITALS: BP 166/59
--- NOTE | 2024-06-02 12:19 | CM ---
CM following re: d/c planning.
CM met with pt at bedside to discuss d/c.
She is now agreeable to VN services and chooses [facility].
Referral placed, order obtained.
CM explained skilled care vs. personal care.
Pt states she is working with a private care agency to get services in the home
She believes she is over income for Aging / waiver.
She states her daughter will provide transport for home today.
Goal: home with [facility].
[2024-06-02 13:08] VITALS: BP 153/64; BP 156/72
[2024-06-02 15:02] VITALS: BP 149/66; BP 162/68; PULSE 63; O2SAT 98
[2024-06-02 15:38] VITALS: BP 149/66; BP 162/62; PULSE 64; O2SAT 98
== END 2024-06-02 16:13 | disposition home health service (06) | DRG 315 ==
LOC: 3 WEST ACU 03:51
PROVIDERS: Physician Assistant Medical; ADMITTING PHYSICIAN Hospitalist; ATTENDING PHYSICIAN Hospitalist; CONSULT PHYSICIAN Internal Medicine Cardiovascular Disease; EMERGENCY PHYSICIAN Student in an Organized Health Care Education/Training Program; FAMILY PHYSICIAN Physician Assistant Medical
DX: I42.2 Other hypertrophic cardiomyopathy (principal); I47.19 Other supraventricular tachycardia; I47.20 Ventricular tachycardia, unspecified; I48.0 Paroxysmal atrial fibrillation; I10 Essential (primary) hypertension; I08.1 Rheumatic disorders of both mitral and tricuspid valves; I5A Non-ischemic myocardial injury (non-traumatic); Z66 Do not resuscitate; Z86.73 Personal history of transient ischemic attack (TIA), and cerebral infarction without residual deficits; Z79.82 Long term (current) use of aspirin
CPT/HCPCS: 70551; 75561; 80048; 80053; 83735; 84100; 84484; 85025; 85027; 93005; 93458; 93931; 96360; 97116; 97530; 97535; 99285; A9585; Q9967

== ENCOUNTER → 2024-06-18 08:47 | Outpatient (REF) | payer MEDICARE, SELFPAY ==
[2024-06-18 09:48] LABS: % Basophils 0.9 % (0-2); % Eosinophils 3.4 % (0-6); % Immature Granulocytes 0.1 % (0-0.5); % Lymphocytes 9.9 % (20.5-51.1); % Monocytes 6.1 % (1.7-9.3); % Neutrophils 79.6 % (42.2-75.2); Absolute Basophils 0.1 10^3/uL (0-0.2); Absolute Eosinophils 0.3 10^3/uL (0-0.7); Absolute Lymphocytes 0.8 10^3/uL (1.2-3.4); Absolute Monocytes 0.5 10^3/uL (0.1-0.6); Absolute Neutrophils 6.3 10^3/uL (1.4-6.5); Hematocrit 38.8 % (37.0-47.0); Hemoglobin 12.7 g/dL (12.0-16.0); Mean Corp Hgb Conc. 32.7 g/dL (33.0-37.0); Mean Corpuscular Hgb 30.2 pg (27.0-31.0); Mean Corpuscular Volume 92.4 fL (81.0-99.0); Mean Platelet Volume 11.3 fL (7.4-10.4); Nucleated Red Blood Cells % 0 %; Platelet Count 240 10^3/uL (130-400); White Blood Cell Count 7.9 10^3/uL (4.8-10.8)
[2024-06-18 10:13] LABS: ALT (SGPT) 11 U/L (0-35); AST (SGOT) 16 U/L (14-36); Albumin 4.2 g/dl (3.5-5.0); Alkaline Phosphatase 83 U/L (38-126); Blood Urea Nitrogen 15 mg/dl (7-17); Calcium 8.9 mg/dl (8.4-10.2); Carbon Dioxide 25 mmol/L (22-30); Chloride 102 mmol/L (98-107); Glucose 78 mg/dl (70-99); Potassium 4.3 mmol/L (3.5-5.1); Sodium 138 mmol/L (135-145); Total Bilirubin 0.9 mg/dl (0.2-1.3); Total Protein 6.8 g/dl (6.3-8.2); eGFR 55.55
== END ==
LOC: REG 08:47
PROVIDERS: ATTENDING PHYSICIAN Internal Medicine Cardiovascular Disease; FAMILY PHYSICIAN Physician Assistant Medical
DX: R42 Dizziness and giddiness (principal); I10 Essential (primary) hypertension
CPT/HCPCS: 36415; 80053; 85025

== ENCOUNTER → 2024-07-29 09:22 | Outpatient (REF) | payer MEDICARE, SELFPAY ==
[2024-07-29 10:15] LABS: % Basophils 0.9 % (0-2); % Eosinophils 2.2 % (0-6); % Immature Granulocytes 0.2 % (0-0.5); % Lymphocytes 10.3 % (20.5-51.1); % Monocytes 7.5 % (1.7-9.3); % Neutrophils 78.9 % (42.2-75.2); Absolute Basophils 0.1 10^3/uL (0-0.2); Absolute Eosinophils 0.2 10^3/uL (0-0.7); Absolute Lymphocytes 0.9 10^3/uL (1.2-3.4); Absolute Monocytes 0.7 10^3/uL (0.1-0.6); Absolute Neutrophils 6.9 10^3/uL (1.4-6.5); Hematocrit 39.1 % (37.0-47.0); Hemoglobin 12.7 g/dL (12.0-16.0); Mean Corp Hgb Conc. 32.5 g/dL (33.0-37.0); Mean Corpuscular Hgb 30.9 pg (27.0-31.0); Mean Corpuscular Volume 95.1 fL (81.0-99.0); Nucleated Red Blood Cells % 0 %; Platelet Count 228 10^3/uL (130-400); Red Blood Cell Count 4.11 10^6/uL (4.20-5.40); Red Cell Dist. Width 15.9 % (11.5-14.5); White Blood Cell Count 8.8 10^3/uL (4.8-10.8)
[2024-07-29 10:47] LABS: ALT (SGPT) 12 U/L (0-35); AST (SGOT) 19 U/L (14-36); Albumin 3.8 g/dl (3.5-5.0); Alkaline Phosphatase 85 U/L (38-126); Blood Urea Nitrogen 21 mg/dl (7-17); Calcium 9.1 mg/dl (8.4-10.2); Carbon Dioxide 28 mmol/L (22-30); Chloride 106 mmol/L (98-107); Glucose 82 mg/dl (70-99); Magnesium 2.3 mg/dl (1.6-2.3); Potassium 5.6 mmol/L (3.5-5.1); Sodium 141 mmol/L (135-145); Total Bilirubin 0.8 mg/dl (0.2-1.3); Total Protein 6.9 g/dl (6.3-8.2); eGFR 49.55
== END ==
LOC: SDSPAT 09:22
PROVIDERS: ATTENDING PHYSICIAN Internal Medicine Cardiovascular Disease; FAMILY PHYSICIAN Physician Assistant Medical; OTHER PHYSICIAN Internal Medicine Cardiovascular Disease
DX: R00.1 Bradycardia, unspecified (principal)
CPT/HCPCS: 36415; 80053; 83735; 85025

== ENCOUNTER 2024-07-31 12:07 | Day surgery (SDC) | payer MEDICARE, SELFPAY ==
[2024-07-29 09:43] VITALS: BMI 24.0
[2024-07-31] VITALS (12 sets, daily range): BP systolic 138–188; BP diastolic 42–129
--- NOTE | 2024-07-31 08:54 | W.ICD.CONTRA ---
Post ICD/DIGITAL CONTENT PRODUCER-D
-
History of CA?: No
LV Function
Left ventricular function study result?: Ejection Fraction >/= 40%
ACEI/ARB/ARNI
Patient already on ACEI/ARB/ARNI: No
ACEI/ARB/ARNI Not Indicated: Left Ventricular EF >/= 40%
Beta-Alejandro
Patient already on Beta Alejandro: Yes
[2024-07-31 12:38] LABS: Blood Urea Nitrogen 21 mg/dl (7-17); Calcium 9.4 mg/dl (8.4-10.2); Carbon Dioxide 27 mmol/L (22-30); Chloride 106 mmol/L (98-107); Estimated Creatinine Clearance 40 ml/min; Glucose 94 mg/dl (70-99); Potassium 4.9 mmol/L (3.5-5.1); Sodium 142 mmol/L (135-145); eGFR 49.55
--- NOTE | 2024-07-31 18:45 | ITS.CL.ICD ---
Rubber Goods Repairer - ICD
Implantable Cardioverter Defibrillator
Procedure Report:
Primary Circuit Court Judge: Angel Luis Taylor MD
Procedure Date: 07/31/2024
Name of procedure:
1. Placement of a dual-chamber ICD (primary prevention)
2. Subclavian venography
3. ILR removal/explant
History:
1. Patient is a pleasant 84-year-old female with a past medical history significant for left bundle branch block, orthostatic hypotension, hypertension, TIA, valvular heart disease, hypertrophic cardiomyopathy, NSVT (symptomatic), paroxysmal atrial
fibrillation
2. Please refer to H&P for complete history.
Indication:
Hypertrophic cardiomyopathy with late gadolinium enhancement on cardiac MRI with LVOT obstruction, symptomatic NSVT
Symptomatic bradycardia
Methods:
After informed consent was obtained, the patient was brought to the EP laboratory in a postabsorptive, nonsedated state. Peripheral IV access was established. Prophylactic antibiotics were administered prior to incision. Continuous ECG, blood
pressure, and pulse oximetry were initiated. Cardioversion patch electrodes were placed on the patient's chest and back. A grounding patch was applied to the skin. Sedation was administered by anesthesia services.
In order to define the extrathoracic portion of the subclavian vein and exclude significant venous obstruction or anomalous anatomy, subclavian venography was performed prior to the procedure. Using the patient's left peripheral IV, contrast was
injected and images were recorded. The left subclavian vein and SVC were found to be widely patent.
The left chest was prepared and draped in a sterile fashion. A time-out was performed. Local anesthesia was injected in the subcutaneous tissue in the infraclavicular area. An incision was made medial to the deltopectoral groove. The subcutaneous
tissue was dissected the level of the prepectoral fascia. A subcutaneous pocket was created. Under fluoroscopic guidance and with the assistance of the images from the venogram, 2 separate venipunctures were made using micropuncture and modified
Seldinger technique. These were performed in the extrathoracic portion of the subclavian vein. Guidewires were passed and two peel-away sheaths were placed, and used to advance leads into the circulation.
Using fluoroscopic guidance, the leads were positioned. The RV lead was advanced to the RV/outflow tract. Ventricular ectopy was recorded. Images were taken in RM and EMIRATI views to ensure appropriate lead placement. The lead tip was subsequently
positioned on the apical septum. Adequate sensing and pacing parameters were found, and no diaphragmatic stimulation was seen with high-output pacing.
Next, the right atrial lead was positioned in the right atrial appendage. Adequate sensing and pacing parameters were found, and no diaphragmatic stimulation was seen with high-output pacing. Both sheaths were split, and the leads were secured to
the fascia with Ethibond ties.
The pocket was flushed with antibiotic solution and hemostasis was assured. The generator was connected to the leads and placed inside the pocket and sutured to the fascia. The wound was closed with 3 running layers of absorbable suture, and
steri-strips were applied. Dressing applied over steri-strips in standard fashion.
Next we turned our attention to the ILR removal. Local anesthesia was injected in the subcutaneous tissue overlying the ILR. An incision was over the device. The subcutaneous tissue was dissected the level of the chronic capsule. The capsule was
opened and the ILR was removed.
The pocket was flushed with antibiotic solution and hemostasis was assured. Absorbable suture was used to close the wound. Manual pressure was applied until hemostasis resulted. Steri-Strips were placed and dressing placed over in standard
fashion.
Explanted device: MedFanHero model: LNQ11, Serial# [id number]
Following the procedure, the patient was taken to the recovery area in stable condition.
Lead parameters and device programming:
- RA Lead (Medtronic, Model 5076, #[id number]): Sensing 3.8 mV, Pacing threshold 1.5 V at 0.4 ms, Imp 551 Ohm
- RV Lead (Medtronic, Model 6935M, #[id number]): Sensing 9.8 mV, Pacing threshold 0.75 V at 0.4 ms, Imp 703 Ohm
- Device: [ ], Model[ ] ICD (#[ ]), programmed [ ]
- Zones: [ ]
Conclusions:
1. Successful placement of a dual-chamber ICD
2. Subclavian venography
3. Successful removal of ILR
Recommendations:
- Admit
-Chest x-ray this evening, [facility] in a.m.
- IV antibiotics while the patient is admitted.
- OK to resume home medications as indicated
- Pressure dressing to be removed in AM, aquacell to remain until wound check
- Follow-up for incision check in the office in 7-10 days post-discharge
- Increase beta-josé manuel therapy
Dank Carroll DO, [facility], [facility]
Clinical Cardiac Industrial Coffee Grinder
cc: Angel Luis Taylor MD; Dr. Kilo Webb
--- NOTE | 2024-07-31 19:24 | PTCARENOTE ---
Pt received from EP lab post Dual ICD placement in left anterior chest wall and explant of Linq device. Both dressings dry and intact, no sign of bleeding or hematoma. Pt states understanding of activity restrictions. Pt denies any discomfort.
Telemetry shows sinus rhythm. Plan for CXR later tonight.
[2024-07-31] MEDS: PACERONE 100 MG PO (19:52)
[2024-07-31] MEDS: NORVASC 5 MG PO (19:54)
--- NOTE | 2024-07-31 20:21 | PTCARENOTE ---
Patient received at change of shift resting in the bed. Patient offers no complaints at this time. Limb and activity restrictions reviewed, patient verbalized understanding. SR with first degree AV block, prolonged QT, intermittent A pacing noted on
telemetry. Oxygen saturation 95% on room air. Post op CXR completed. Patient ambulated x1 assist to BR. Left arm immobilizer in place. Left anterior chest wall pressure dressing in place over surgical sites, C/D/I. Radial pulses palpable. Plan of
care discussed with patient. Call ibarra within reach. Care ongoing.
[2024-07-31] MEDS: ANCEF 5 IV (22:51)
[2024-08-01 02:32] VITALS: BP 152/75
[2024-08-01 02:53] LABS: Hematocrit 37.5 % (37.0-47.0); Hemoglobin 12.4 g/dL (12.0-16.0); Mean Corp Hgb Conc. 33.1 g/dL (33.0-37.0); Mean Corpuscular Hgb 30.6 pg (27.0-31.0); Mean Corpuscular Volume 92.6 fL (81.0-99.0); Mean Platelet Volume 11.1 fL (7.4-10.4); Platelet Count 214 10^3/uL (130-400); Red Blood Cell Count 4.05 10^6/uL (4.20-5.40); Red Cell Dist. Width 15.4 % (11.5-14.5); White Blood Cell Count 9.2 10^3/uL (4.8-10.8)
[2024-08-01 03:05] LABS: Blood Urea Nitrogen 23 mg/dl (7-17); Calcium 9.2 mg/dl (8.4-10.2); Carbon Dioxide 23 mmol/L (22-30); Chloride 108 mmol/L (98-107); Estimated Creatinine Clearance 44 ml/min; Glucose 165 mg/dl (70-99); Magnesium 2.2 mg/dl (1.6-2.3); Potassium 4.7 mmol/L (3.5-5.1); Sodium 140 mmol/L (135-145); eGFR 55.55
[2024-08-01] MEDS: ANCEF 5 IV (06:01)
[2024-08-01 07:13] VITALS: BP 161/57
[2024-08-01] MEDS: BYSTOLIC 10 MG PO (09:09)
[2024-08-01] MEDS: PACERONE 100 MG PO (09:10)
[2024-08-01] MEDS: LOW STRENGTH ASPIRIN 81 MG PO (09:10)
[2024-08-01] MEDS: TYLENOL 650 MG PO (09:10)
--- NOTE | 2024-08-01 10:01 | CM ---
Chart reviewed. Patient is independent of ADLS, lives alone in a 3 STH, 1 KIET, 0 DME. Plan is for the patient to return home. CM to follow
[2024-08-01 10:32] VITALS: BP 138/54
--- NOTE | 2024-08-01 10:41 | W.PN.CARDCBS ---
Addendum entered and electronically signed by Tyrone Marsh MD 08/01/24 14:05:
Patient seen, interviewed and examined by me.
Well-appearing, no acute distress
Dressing left chest is clean and dry
Regular rate and rhythm with normal S1 and S2, no S3 no S4. There is a grade 1/6 apical holosystolic murmur and no rubs. PMI is normally placed.
Lungs are clear to auscultation bilaterally without wheezes rales or rhonchi.
Abdomen soft nontender nondistended with normoactive bowel sounds
Extremities show trace pretibial edema bilaterally no clubbing or cyanosis.
Neurologic exam is grossly nonfocal.
She has hypertrophic obstructive cardiomyopathy, nonsustained VT and symptomatic bradycardia. She has pacemaking indication and is felt to be at high risk of sudden cardiac given her hypertrophic, ventricular tachycardia and areas of delayed
myocardial enhancement on cardiac MRI. Therefore she was referred for ICD implantation.
She underwent dual-chamber ICD implantation and removal of an implanted loop recorder on July 31, 2024. She tolerated this well with no significant complications.
Review of telemetry today finds periods of dual-chamber pacing with PVCs in a bigeminal pattern.
I also personally reviewed her ECG from August 01, 2024 finding sinus rhythm with left bundle branch block, unchanged from prior.
Chest x-ray finds no pneumothorax and a normal expected appearance of the generator and lead system.
I reviewed yesterday's procedures
We discussed activity/arm motion restrictions and discharge planning.
All of her questions have been answered.
Stable for discharge to home today.
Original Note:
Today's Communication / Plan
-
post ICD and ILR removal, stable for d/c home
Impression / Plan
-
Primary care phyiscian: Kilo Craft PA-C
Primary Staff Editor: Angel Luis Taylor MD
84-year-old female with a past medical history significant for left bundle branch block, orthostatic hypotension, hypertension, TIA, valvular heart disease, hypertrophic cardiomyopathy, NSVT (symptomatic), paroxysmal atrial fibrillation
Impression:
HOCM with LVOT obstruction
NSVT
Symptomatic bradycardia
post DC ICD and ILR explant 07/31/24
LBBB
PAF
HTN with orthostatic hypotension
TIA
Moderate TR
Osteoporosis
Plan:
post ICD and ILR removal
site with some mild ecchymosis
CXR no PTX
tele SR with LBBB
BP elevated, continue amlodipine and will increase Bystolic 10mg and she will monitor BP and bring log to f/u apt
continue amiodarone 100mg bid
Activity restrictions reviewed
Incision check at [facility] in 1 week
home today
Progress Note - Staff Editor
Subjective
Date of Service: August 01, 2024
no cp, sob, mild inc pain
Objective
Labs:
08/01/24 02:34
08/01/24 02:34
Labs
Hgb 12.4 g/dL (12.0-16.0) 08/01/24 02:34
Hct 37.5 % (37.0-47.0) 08/01/24 02:34
Plt Count 214 10^3/uL (130-400) 08/01/24 02:34
Sodium 140 mmol/L (135-145) 08/01/24 02:34
Potassium 4.7 mmol/L (3.5-5.1) 08/01/24 02:34
BUN 23 mg/dl (7-17) H 08/01/24 02:34
Creatinine 1.0 mg/dL (0.6-1.0) 08/01/24 02:34
Glucose 165 mg/dl (70-99) H 08/01/24 02:34
Vital Signs and I&O:
Vital Signs
Temp Pulse Resp BP Pulse Ox
97.6 F 62 18 138/54 97
08/01/24 10:33 08/01/24 10:32 08/01/24 10:33 08/01/24 10:32 08/01/24 10:33
Vital Signs
Temp Pulse Resp BP Pulse Ox
97.6 F 62 18 138/54 97
08/01/24 10:33 08/01/24 10:32 08/01/24 10:33 08/01/24 10:32 08/01/24 10:33
Physical Exam
Physical Exam
NAD, AOX3
S1, S2, RRR
CTAB, non labored
SNTND Bsx4
L CW dressing c/d/i, mild ecchymosis at pocket site, pressure dressing removed
[2024-08-01 11:40] VITALS: BMI 24.0
--- NOTE | 2024-08-01 11:43 | PTCARENOTE ---
Pt seen by Dr.Rob Marsh and Emily De La Rosa NP. Pt c/o mild incisional discomfort improved with tylenol. Telemetry and IV device removed. Discharge instructions reviewed with pt regarding activity and driving restrictions, wound care, pain
management, medications and their possible side effects, reporting cares and concerns and follow up appt's. Very good understanding taught back to this RN. Pt to be escorted out via wheelchair.
--- NOTE | 2024-08-01 12:17 | W.DS.TRANS ---
DC Summary - Enthone Solder Stripper
-
Discharge Instructions:
Discharge Diagnosis/Procedures ICD implant and Linq removal
Diet Low Cholesterol
Driving Restrictions No driving for 1 week
Bathing Restrictions OK to Shower
Instructions:
Stand-Alone Forms: DC Inst - Implanted Device
Changes to Home Medications: Yes
Discharge Medications:
DC Medications w/original date entered in [employer]
amlodipine 5 mg tablet 5 mg PO QPM Blood pressure 05/23/24
cranberry 500 mg capsule 500 mg PO QPM Supplement 05/23/24
aspirin 81 mg chewable tablet 81 mg PO DAILY Blood Clot Prevention/Tx 05/28/24
amiodarone 200 mg tablet 100 mg PO BID AT 0800,1600 07/31/24
nebivolol 10 mg tablet 10 mg PO DAILY #30 tabs 08/01/24
Home Medication Changes
increased nebivolol
Pending Results: No
== END 2024-08-01 12:01 | disposition home or self-care (01) ==
LOC: CATH 12:07
PROVIDERS: Nurse Practitioner; ATTENDING PHYSICIAN Internal Medicine Cardiovascular Disease; FAMILY PHYSICIAN Physician Assistant Medical; OTHER PHYSICIAN Internal Medicine Cardiovascular Disease
DX: I42.1 Obstructive hypertrophic cardiomyopathy (principal); I48.0 Paroxysmal atrial fibrillation; I47.20 Ventricular tachycardia, unspecified; Z86.73 Personal history of transient ischemic attack (TIA), and cerebral infarction without residual deficits; I10 Essential (primary) hypertension; Z09 Encounter for follow-up examination after completed treatment for conditions other than malignant neoplasm; I44.7 Left bundle-branch block, unspecified; I95.1 Orthostatic hypotension; Z88.1 Allergy status to other antibiotic agents; Z88.2 Allergy status to sulfonamides; M81.0 Age-related osteoporosis without current pathological fracture; Z79.82 Long term (current) use of aspirin; Z79.899 Other long term (current) drug therapy
CPT/HCPCS: 33249; 33286; 71045; 80048; 83735; 85027; 93005; C1721; C1777; C1892; C1898; Q9967

== ENCOUNTER → 2024-10-03 07:03 | Outpatient (REF) | payer MEDICARE, SELFPAY ==
[2024-10-03 08:36] LABS: Blood Urea Nitrogen 21 mg/dl (7-17); Calcium 9.1 mg/dl (8.4-10.2); Carbon Dioxide 23 mmol/L (22-30); Chloride 107 mmol/L (98-107); Glucose 80 mg/dl (70-99); Magnesium 2.1 mg/dl (1.6-2.3); Potassium 4.3 mmol/L (3.5-5.1); Sodium 140 mmol/L (135-145); eGFR 49.55
== END ==
LOC: REG 07:03
PROVIDERS: ATTENDING PHYSICIAN Internal Medicine Cardiovascular Disease; FAMILY PHYSICIAN Physician Assistant Medical
DX: R42 Dizziness and giddiness (principal); I48.0 Paroxysmal atrial fibrillation
CPT/HCPCS: 36415; 80048; 83735

== ENCOUNTER → 2024-10-23 09:47 | Emergency (ER) | payer MEDICARE, SELFPAY ==
[2024-10-23 09:55] VITALS: BP 154/65
[2024-10-23 09:56] VITALS: BMI 23.9
[2024-10-23 10:00] VITALS: BP 153/95
[2024-10-23 11:00] VITALS: BP 125/90
[2024-10-23 11:42] LABS: COVID-19 Antigen Positive (Negative)
[2024-10-23 11:53] LABS: ALT (SGPT) 11 U/L (0-35); AST (SGOT) 20 U/L (14-36); Albumin 4.1 g/dl (3.5-5.0); Alkaline Phosphatase 102 U/L (38-126); Blood Urea Nitrogen 19 mg/dl (7-17); Calcium 8.8 mg/dl (8.4-10.2); Carbon Dioxide 22 mmol/L (22-30); Chloride 103 mmol/L (98-107); Estimated Creatinine Clearance 41 ml/min; Glucose 89 mg/dl (70-99); Potassium 4.6 mmol/L (3.5-5.1); Sodium 134 mmol/L (135-145); Total Bilirubin 1.2 mg/dl (0.2-1.3); Total Protein 6.8 g/dl (6.3-8.2); eGFR 49.55
[2024-10-23] MEDS: NSS 500 IV (11:54)
--- NOTE | 2024-10-23 12:13 | ED.GENMED ---
History of Present Illness
General
Chief Complaint: Cold/Flu/URI Symptoms
Source: patient and records
Exam Limitations: none
Time Seen by Provider: 10/23/24 11:17
Nursing documentation reviewed up to this point in time: agreed with
History of Present Illness
History of Present Illness:
84-year-old female with history as noted presents to the ER for evaluation of multiple complaints. Patient reports that she started to feel unwell yesterday. She reports that she has had loose nonbloody stools. She reports that she has had
rhinorrhea and mild cough. She says she has some congestion. She has not had any abdominal pain, nausea or vomiting. No chest pain or shortness of breath. She said she had some chills and malaise yesterday but was not able to check her
temperature�she did take some Tylenol in case of fever. She decided this morning that she should come in to be evaluated. Denies any known sick contacts. Denies any recent travel. Denies any recent antibiotics.
Past History
Past History
ED Past Medical History: CVA and HTN
ED Past Surgical History: Appendectomy, Gynecological and Tonsilectomy
Social History
Tobacco: Non-smoker
Alcohol: None
Drug: None
Personal:
Living: with family
Employment: Retired
Family History
Family History: Other (stroke in elderly grandparents)
Review of Systems
Review of Systems
All Other Systems: ROS reviewed and negative except as documented in HPI and ROS
Constitutional: Reports fever, fatigue and chills
EENT: Reports runny nose; Denies sore throat
Respiratory: Reports cough; Denies trouble breathing
Cardiac: Denies chest pain
ABD/GI: Reports diarrhea; Denies abdominal pain, nausea, vomiting or bloody stools
: Denies flank pain
Musculoskeletal: Denies neck pain or back pain
Neurological: Denies headache
Phy Exam
Physical Exam
Physical Exam:
General: Awake, alert, oriented x3; no acute distress
Head: Normocephalic, atraumatic
Eyes: Conjunctiva normal, sclera anicteric
Throat: Airway intact, handling secretions, no tonsillar erythema or exudate
Neck: Trachea midline, supple without meningismus
Lungs: Clear to auscultation bilaterally, no wheezing, rales, rhonchi
Heart: Regular rate and rhythm, no murmurs, gallops, or rubs
Abd: Soft, non distended, nontender
Neuro: No gross deficits
Skin: no rash
Extremities: No edema in extremities, warm and well-perfused
Scores
Heart Failure Risk
Heart Failure Risk Score: Not Applicable
Heart Score for Chest Pain Patients
STEMI patient?: Not applicable
Withdrawal Assessment of Alcohol
Withdrawal Assessment Completed?: Not applicable
Course
Orders/Labs/Results
Orders:
Orders
10/23/24 11:10
Basic Metabolic Panel Urgent
COVID-19 Antigen Urgent
Source: Nasal Swab
Comprehensive Metabolic Panel Urgent
Influenza A+B Rapid Molecular Urgent
OMKAR Source: Nasal Swab
Specimen Description:
10/23/24 11:48
0.9% Sodium Chloride 500 ml [Nss] 500 ml IV BOLUS
Abnormal Lab Results
10/23/24
11:10
Sodium 134 L mmol/L
(135-145)
BUN 19 H mg/dl
(7-17)
Creatinine 1.1 H mg/dL
(0.6-1.0)
SARS-CoV-2 Antigen Positive A
(Negative)
10/23/24 11:10
Vital Signs
Initial and Last Documented VS:
Initial Vital Signs
Pulse Ox
94
10/23/24 09:54
Last Documented Vital Signs
Pulse Resp BP Pulse Ox
70 18 125/90 93
10/23/24 11:00 10/23/24 11:00 10/23/24 11:00 10/23/24 11:00
MDM/Problems Addressed
Differential Diagnosis Includes:
Viral syndrome
MDM/Problems Addressed:
84-year-old female presents with URI symptoms and some loose stools today. Hypertensive in triage normalized by my assessment. Physical exam as above. She had a chemistry sent given her report of loose stools which showed stable creatinine 1.1 no
electrolyte derangements. She is positive for COVID today which is likely etiology of her symptoms. She has no hypoxia or tachypnea and clear lungs. No indication for emergent chest x-ray. I did offer Paxlovid patient declined. She is
vaccinated for COVID. Will provide some fluids here given her loose stools but I think she is stable for discharge after fluids. Patient comfortable with this plan. All questions answered.
*Pulse Oximetry
SaO2: 93
Oxygen Mode of Delivery: Room air
Patient hypoxic: no (94%)
*Critical Care Note
Total Time (30-74mins, 75-104mins- exclusive of procedures): Not Applicable
Data Reviewed
Source: patient and records
ED Attending Note
-
Portions of this chart may have been created with voice recognition software.� Occasional wrong word or��sound alike� substitutions may have occurred due to the inherent limitations of voice recognition software.
Discharge Plan
Departure
Patient with high blood pressure during this ER visit?: Yes
Discharge Problem:
COVID-19
Instructions: COVID-19 - ED discharge instructions
Prescriptions:
No Action
cranberry 500 mg Capsule
500 mg PO QPM
amlodipine 5 mg tablet
5 mg PO QPM
aspirin 81 mg Tablet,Chewable
81 mg PO DAILY
amiodarone 200 mg tablet
100 mg PO BID AT 0800,1600
nebivolol 10 mg Tablet
10 mg PO DAILY Qty: 30 5RF
Referrals:
Kilo Webb PA-C [Family Provider, Family Practice] - Follow up in 1 week
Activity Restrictions/Additional Instructions:
Thank you for visiting the Emergency Department at [facility].
1. Please schedule a follow up appointment as directed. Call first thing tomorrow morning to make an appointment.
2. If indicated, please take your medications as instructed and indicated on discharge paperwork.
3. If any of your symptoms do not improve, or persist, or become more severe within 6-12 hours, please return to the emergency department for further care.
4. Please return to the emergency department if you develop a headache, neck pain/stiffness, fever greater than 100.4F, chest pain, shortness of breath, persistent nausea, vomiting, slurred speech, difficulty walking, numbness/tingling, weakness,
signs of infection or any other symptoms that are worrisome to you.
Please call [phone] if you have any questions.
Interventions
Interventions:
*Risk Screen - Suicide Last Done: 10/23/24 09:56
*General Assessment Last Done: 10/23/24 09:56
*Neglect/Abuse Screening Last Done: 10/23/24 09:56
*ED- Fall Risk Assessment Last Done: 10/23/24 09:56
*ED COVID-19 Vaccine History Last Done: 10/23/24 09:56
ED- Pulmonary Assessment Last Done: 10/23/24 10:25
Discharge Date and Time
Print Language: NEPALESE
== END | disposition home or self-care (01) ==
LOC: EMR 09:47
PROVIDERS: EMERGENCY PHYSICIAN Emergency Medicine; FAMILY PHYSICIAN Physician Assistant Medical
DX: U07.1 COVID-19 (principal); I10 Essential (primary) hypertension; Z86.73 Personal history of transient ischemic attack (TIA), and cerebral infarction without residual deficits
CPT/HCPCS: 96360; 99284; 80048; 80053; 87502; 87811

== ENCOUNTER 2025-02-17 06:21 | Day surgery (SDC) | payer MEDICARE, SELFPAY ==
[2025-02-17] VITALS (7 sets, daily range): BP systolic 138–189; BP diastolic 54–95; BMI 23.7
[2025-02-17] MEDS: NORMOSOL-R/PLASMALYTE-A 1000 IV (10:39)
[2025-02-17] MEDS: TYLENOL 1000 MG PO (10:42)
[2025-02-17] MEDS: HEPARIN 5000 UNITS SC (10:44)
--- NOTE | 2025-02-17 12:20 | OR.RPT ---
Operative Report
Operative Report
Primary Surgeon: Main
Pre-op Diagnosis: Right inguinal hernia
Post-op Diagnosis: Same
Procedure Performed: Robot assisted laparoscopic repair of right inguinal hernia
Anesthesia Type: GETA
Specimen / Cultures: None
Estimated Blood Loss: 3cc
Complications: None immediate
Operative Findings: Right direct defect, pseudosac everted, MID XL 3D Max
Date of Surgery: 02/17/25
Indications: This 84F developed a right inguinal hernia. Robot assisted laparoscopic repair was elected.
Description of procedure:� The patient was taken to the operating room and positioned into supine position. The patient�s abdomen was prepped and draped in standard sterile fashion. A time-out was completed verifying correct patient, procedure,
site, positioning, and implants and special equipment prior to beginning this procedure.
A stab incision was made in the left upper quadrant, a Veress needle was inserted and proper position was confirmed by aspiration and saline drop test. Following this, pneumoperitoneum was created with insufflation of carbon dioxide to 12 mmHg. Then
a 8mm robotic trocar was inserted above and to the left of the umbilicus. A laparoscope was inserted and the area of initial trocar entry and Veress needle placement were both inspected and no injuries were found. Two 8mm trocars were then placed
lateral to the rectus sheath under direct visualization.
Both inguinal regions were inspected and the median umbilical ligament, medial umbilical ligament, and lateral umbilical fold were identified. Attention was turned to the right groin. The peritoneum was incised transversely above the defect and a
flap was developed in the caudad direction. Jan�s ligament was identified ultimately dissected to its junction with the iliac vein and the space of Retzius was developed bluntly. The dissection was continued inferiorly to the iliopubic tract,
with care taken to avoid injury to the femoral branch of the genitofemoral nerve and the lateral femoral cutaneous nerve. The round ligament was parietalized and sacrificed low.
The direct space was inspected and a hernia defect was identified and reduced by gentle traction. The pseudosac was everted and secured to Jan's ligament with 2-0 vicryl suture. The femoral space was inspected and no defect was identified.The
indirect space was inspected and no defect was identified. The canal was inspected and no cord lipoma was identified.
Extra large right MID 3D max mesh was passed through a trocar. The mesh was placed into the preperitoneal space and moved into position to lay flat and completely cover the direct, indirect, and femoral spaces with overlap at the midline. The mesh
was secured into place using 2-0 vicryl suture to Jan�s ligament medially and laterally. Care was taken to avoid the inferolateral triangles containing the iliac vessels and genital nerves. The peritoneal flap was closed over the mesh and secured
with 2-0 monocryl stratafix suture in similar positions of safety. A 14g angiocath was used to decompress the preperitoneal space revealing good seal and all mesh in good position without folding or curling.
After ensuring adequate hemostasis, the trocars were removed and the pneumoperitoneum allowed to escape. The trocar incisions were closed at the skin level using 4-0 monocryl and topical skin adhesive. Marcaine 0.5% with epinephrine was infiltrated
into the skin around the port incisions. All counts were correct and the patient tolerated the procedure well and was taken to the postanesthesia care unit in stable condition.
== END 2025-02-17 13:37 | disposition home or self-care (01) ==
LOC: SDS 06:21
PROVIDERS: ATTENDING PHYSICIAN Surgery
DX: K40.90 Unilateral inguinal hernia, without obstruction or gangrene, not specified as recurrent (principal)
CPT/HCPCS: 49650; C1781

== ENCOUNTER 2025-04-13 07:27 | Emergency (ER) | payer MEDICARE, SELFPAY ==
[2025-04-13] VITALS (10 sets, daily range): BP systolic 147–192; BP diastolic 53–91; BMI 23.9
--- NOTE | 2025-04-13 07:35 | ED.GENMED ---
History of Present Illness
<Kristin Kenny PA-C - Last Filed: 04/13/25 13:46>
General
Chief Complaint: Back Pain
Source: patient and ambulance crew
Exam Limitations: none
Time Seen by Provider: 04/13/25 07:35
History of Present Illness
History of Present Illness:
84yoF with a history of hypertrophic cardiomyopathy and history of VT with defibrillator in place presenting via EMS for evaluation of left flank pain. Symptoms initially started around Thanksgiving. She denies any trauma or inciting incident.
Pain has been worsening over the past 10 days and is constant. Pain is nonradiating. She has seen her PCP several times for the symptoms and was diagnosed with a muscle spasm. She has been prescribed muscle relaxants including Valium and was
prescribed methocarbamol yesterday. She took several doses of methocarbamol which has not provided any relief. She has also tried ice/heat. She is not currently taking anything OTC but was initially taking Tylenol. Pain seems to be worse at rest
and improves very slightly with ambulation. She was unable to sleep last night due to her pain. She denies any fevers, chills, abdominal pain, rash, saddle anesthesia, weakness, difficulty urinating, incontinence. No prior history of back
surgeries.
Past History
<Kristin Kenny PA-C - Last Filed: 04/13/25 13:46>
Past History
ED Past Medical History: CVA and HTN
ED Past Surgical History: Appendectomy, Gynecological and Tonsilectomy
Social History
Tobacco: Non-smoker
Alcohol: None
Drug: None
Personal:
Living: with family
Employment: Retired
Family History
Family History: Other (stroke in elderly grandparents)
Phy Exam
<Kristin Kenny PA-C - Last Filed: 04/13/25 13:46>
General Physical Exam
General Presentation: well appearing and no apparent distress
General age: appears stated age
General Skin: warm and dry
General Habitus: normal and elderly
General Mental: alert
ENT Exam
ENT Exam: normocephalic
Cardiovascular Exam
Cardiovascular Exam: normal peripheral pulses (2+ DP pulses bilaterally)
Pulmonary Exam
Pulmonary Exam: lungs clear, no respiratory distress, no rales, no crackles, no rhonchi and no wheezing
Gastrointestinal Exam
Gastrointestinal Exam: non tender, soft, non distended and no cva tenderness
Neurological Exam
Neurological Exam: alert and no motor deficits (5/5 strength in bilateral lower extremities)
Robbin Coma Scale
Eye Opening: Spontaneous
Verbal Response: Oriented
Motor Response: Obeys Commands
GCS Total Score: 15
Musculoskeletal Exam
Musculoskeletal Exam: other (No reproducible tenderness in L flank. No skin changes.)
Skin Exam
Skin Exam: normal color and warm/dry
Psychiatric Exam
Psychiatric Exam: normal mood/affect
<Tyrone Rodriguez MD - Last Filed: 04/13/25 09:15>
Robbin Coma Scale
GCS Total Score: 15
Course
<Kristin Kenny PA-C - Last Filed: 04/13/25 13:46>
Orders/Labs/Results
Orders:
Orders
04/13/25 07:36
Acetaminophen 1000MG/100Ml [Ofirmev] 1,000 mg in 100 ml IV ONCE
Acetaminophen IV Indication:: ED Narcotic Naive Pt-ONCE
Ketorolac [Toradol] 15 mg IV NOW STA
04/13/25 07:37
CT Abd/pel Without Iv Or Oral Urgent
Comment:
Reason For Exam: L flank pain
Lidocaine [Lidocaine 4% Patch] 1 patch TOPICAL ONCE ONE
Apply Lidocaine patch(s) to:: L flank
04/13/25 07:43
Complete Blood Count/With Diff Urgent
Comprehensive Metabolic Panel Urgent
Lipase Urgent
Comment: ADD ON
04/13/25 08:21
HYDROmorphone [Dilaudid] 0.5 mg IV NOW STA
Ketorolac [Toradol] 15 mg IV NOW STA
04/13/25 08:57
CT Angio Abd/Pelvis w/wo IV [CT Abd/pelvis Angio W/wo Iv] Urgent
Comment:
Reason For Exam: severe pain in L flank
04/13/25 12:02
Add On- LAB Stat
Tests Added?: lipase
04/13/25 12:55
Urinalysis Reflex To Culture Urgent
Date Specimen was Collected: 04/13/25
Time Specimen was Collected: 12:51
Urine Microscopic Reflex Cult Urgent
04/13/25 13:02
Oxycodone [Roxicodone] 5 mg PO NOW STA
Abnormal Lab Results
04/13/25 04/13/25
07:43 12:55
Absolute Lymphs (auto) 1.1 L 10^3/uL
(1.2-3.4)
Absolute Monos (auto) 0.7 H 10^3/uL
(0.1-0.6)
Neutrophils % 75.9 H %
(42.2-75.2)
Lymphocytes % 14.3 L %
(20.5-51.1)
BUN 23 H mg/dl
(7-17)
Creatinine 1.1 H mg/dL
(0.6-1.0)
Ur Occult Blood Reflex 1+ A
(Negative)
Urine RBC 3-6 A /HPF
(0-2)
Urine Albumin (Reflex) 1+ A
(Neg - Trace)
04/13/25 07:43
04/13/25 07:43
Vital Signs
Initial and Last Documented VS:
Initial Vital Signs
Temp Pulse Resp BP Pulse Ox
97.7 F 85 16 152/68 95
04/13/25 07:29 04/13/25 07:29 04/13/25 07:29 04/13/25 07:29 04/13/25 07:29
Last Documented Vital Signs
Temp Pulse Resp BP Pulse Ox
97.7 F 63 16 177/53 98
04/13/25 07:29 04/13/25 13:20 04/13/25 13:20 04/13/25 13:20 04/13/25 13:20
<Tyrone Rodriguez MD - Last Filed: 04/13/25 09:15>
Orders/Labs/Results
Orders:
Orders
04/13/25 07:36
Acetaminophen 1000MG/100Ml [Ofirmev] 1,000 mg in 100 ml IV ONCE
Acetaminophen IV Indication:: ED Narcotic Naive Pt-ONCE
Ketorolac [Toradol] 15 mg IV NOW STA
04/13/25 07:37
CT Abd/pel Without Iv Or Oral Urgent
Comment:
Reason For Exam: L flank pain
Lidocaine [Lidocaine 4% Patch] 1 patch TOPICAL ONCE ONE
Apply Lidocaine patch(s) to:: L flank
04/13/25 07:43
Complete Blood Count/With Diff Urgent
Comprehensive Metabolic Panel Urgent
Lipase Urgent
Comment: ADD ON
04/13/25 08:21
HYDROmorphone [Dilaudid] 0.5 mg IV NOW STA
Ketorolac [Toradol] 15 mg IV NOW STA
04/13/25 08:57
CT Angio Abd/Pelvis w/wo IV [CT Abd/pelvis Angio W/wo Iv] Urgent
Comment:
Reason For Exam: severe pain in L flank
04/13/25 12:02
Add On- LAB Stat
Tests Added?: lipase
04/13/25 12:55
Urinalysis Reflex To Culture Urgent
Date Specimen was Collected: 04/13/25
Time Specimen was Collected: 12:51
Urine Microscopic Reflex Cult Urgent
04/13/25 13:02
Oxycodone [Roxicodone] 5 mg PO NOW STA
Abnormal Lab Results
04/13/25 04/13/25
07:43 12:55
Absolute Lymphs (auto) 1.1 L 10^3/uL
(1.2-3.4)
Absolute Monos (auto) 0.7 H 10^3/uL
(0.1-0.6)
Neutrophils % 75.9 H %
(42.2-75.2)
Lymphocytes % 14.3 L %
(20.5-51.1)
BUN 23 H mg/dl
(7-17)
Creatinine 1.1 H mg/dL
(0.6-1.0)
Ur Occult Blood Reflex 1+ A
(Negative)
Urine RBC 3-6 A /HPF
(0-2)
Urine Albumin (Reflex) 1+ A
(Neg - Trace)
04/13/25 07:43
04/13/25 07:43
Vital Signs
Initial and Last Documented VS:
Initial Vital Signs
Temp Pulse Resp BP Pulse Ox
97.7 F 85 16 152/68 95
04/13/25 07:29 04/13/25 07:29 04/13/25 07:29 04/13/25 07:29 04/13/25 07:29
Last Documented Vital Signs
Temp Pulse Resp BP Pulse Ox
97.7 F 63 16 177/53 98
04/13/25 07:29 04/13/25 13:20 04/13/25 13:20 04/13/25 13:20 04/13/25 13:20
<Kristin Kenny PA-C - Last Filed: 04/13/25 13:46>
MDM/Problems Addressed
Differential Diagnosis Includes:
84yoF here with ongoing L flank pain x 3 weeks. Has been seen by PCP and diagnosed with muscle spasms. Using muscle relaxants without relief. No red flags in history including no fevers, saddle anesthesia, incontinence. There is no reproducible
tenderness on exam or rash. Lower extremities neurovascularly intact. Differential diagnosis includes but is not limited to: muscular strain/spasm, kidney stone, compression fracture
Initial ED plan: Check CBC, CMP, UA, and CT abdomen without contrast. IV Toradol, Ofirmev, and lidocaine patch for pain.
<Kristin Kenny PA-C - Last Filed: 04/13/25 13:46>
*Pulse Oximetry
Patient hypoxic: no
*Critical Care Note
Total Time (30-74mins, 75-104mins- exclusive of procedures): Not Applicable
<Kristin Kenny PA-C - Last Filed: 04/13/25 13:46>
Update Note
Update Note:
Labs unremarkable. Renal function at baseline. 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 No other acute findings. Patient with no improvement after initial round of pain meds and IV Dilaudid ordered.
Given severity of pain, CTA AP ordered for completeness. This shows moderate intrahepatic and extrahepatic biliary dilatation and cholelithiasis although she has no abdominal pain and LFTs and lipase are normal. Abdominal exam repeated and there
is no tenderness in RUQ. Patient did note some improvement after receiving Dilaudid but pain back up to an 8/10 in severity on reassessment No clinical evidence of acute neurosurgical or vascular emergency and she appears very well. Offered
admission for pain control which she declines. Will discharge with prescription for oxycodone for severe breakthrough pain. She was advised to not take the muscle relaxants concomitantly. Advised f/u with PCP and orthopedics.
ED Attending Note
<Kristin Kenny PA-C - Last Filed: 04/13/25 13:46>
-
Portions of this chart may have been created with voice recognition software.� Occasional wrong word or��sound alike� substitutions may have occurred due to the inherent limitations of voice recognition software.
<Tyrone Rodriguez MD - Last Filed: 04/13/25 09:15>
ED Attending Note
Patient seen and examined by attending physician: Yes
I performed the substantive portion of visit, reviewed & personally made and approve the management plan that is documented in note by myself or HARI.: Yes
ED Attending Note:
Patient with ongoing left flank pain for weeks. No trauma. States it feels like spasms at times although symptoms are persistent. No rash. No fever. No numbness tingling or weakness. No bowel or bladder issues. Remote history of same in the
past.
On exam patient is nontoxic in no distress. Lungs clear and equal. No CVA tenderness. Heart regular rate and rhythm. Abdomen is soft and nontender. No rebound or guarding no mass or hernia. No CVA tenderness. No vesicular rash. Good lower
extremity strength. Nonfocal.
Impression is nontraumatic left flank pain for weeks. Not clearly muscular. Possible radiculopathy. She does have known and progressive compression fractures. No acute neurosurgical issues. Will get a CTA to rule out vascular emergency. If
this is all stable patient would be admitted for pain management if she feels the need for outpatient pain management follow-up
Discharge Plan
Departure
Patient Disposition: Home (Routine Discharge)
Date of Disposition: 04/13/25
Time of Disposition: 13:27
Patient with high blood pressure during this ER visit?: Yes
Discharge Problem:
Left flank pain, Compression fracture of lumbar vertebra
Instructions: Vertebral compression fracture
Prescriptions:
New
oxycodone 5 mg tablet
5 mg PO Q6H PRN (Reason: Pain) Qty: 12 0RF
No Action
amiodarone 200 mg tablet
100 mg PO QPM
midodrine 5 mg Tablet
2.5 mg PO BID
nebivolol [Bystolic] 5 mg Tablet
5 mg PO DAILY
Azo Cranberry 250 mg Tablet,Chewable
500 mg PO DAILY
tramadol 50 mg tablet
50 mg PO Q6H PRN (Reason: Pain) Qty: 20 0RF
Referrals:
Clair Wade I., DO [Active, Orthopedics]
Kilo Webb PA-C [Family Provider, Family Practice]
Activity Restrictions/Additional Instructions:
Take Tylenol 650mg every 6 hours as needed for pain. Take oxycodone only as needed for severe breakthrough pain. Do NOT take oxycodone while taking Valium or other muscle relaxants.
Please call tomorrow to schedule follow-up appointments with your family doctor and orthopedics.
Return to the ER with any new or worsening symptoms.
Interventions
Interventions:
*Risk Screen - Suicide Last Done: 04/13/25 07:29
*General Assessment Last Done: 04/13/25 07:29
*Neglect/Abuse Screening Last Done: 04/13/25 07:29
*ED COVID-19 Vaccine History Last Done: 04/13/25 07:38
*ED Influenza Vaccine History Last Done: 04/13/25 07:38
[facility] Fall Risk Assessment Tool Last Done: 04/13/25 07:38
ED-Musculoskeletal Assessment Last Done: 04/13/25 07:38
Discharge Date and Time
Print Language: KINYARWANDA
--- NOTE | 2025-04-13 07:39 | EDRN ---
This RN ready to start IV and pt said that she needed to finish her daily AM text with her daughter first.
[2025-04-13] MEDS: LIDOCAINE 4% PATCH 1 PATCH TOPICAL (07:51)
[2025-04-13] MEDS: OFIRMEV 100 IV (07:51)
[2025-04-13] MEDS: TORADOL 15 MG IV ×2 (07:51→08:36)
[2025-04-13 07:53] LABS: Hematocrit 40.6 % (37.0-47.0); Hemoglobin 13.6 g/dL (12.0-16.0); Mean Corp Hgb Conc. 33.5 g/dL (33.0-37.0); Mean Corpuscular Volume 92.3 fL (81.0-99.0); Nucleated Red Blood Cells % 0 %; Platelet Count 184 10^3/uL (130-400); Red Cell Dist. Width 14.5 % (11.5-14.5)
[2025-04-13 08:09] LABS: ALT (SGPT) 14 U/L (0-35); AST (SGOT) 21 U/L (14-36); Albumin 4.1 g/dl (3.5-5.0); Alkaline Phosphatase 103 U/L (38-126); Blood Urea Nitrogen 23 mg/dl (7-17); Calcium 9.1 mg/dl (8.4-10.2); Carbon Dioxide 25 mmol/L (22-30); Chloride 103 mmol/L (98-107); Estimated Creatinine Clearance 41 ml/min; Glucose 92 mg/dl (70-99); Potassium 4.9 mmol/L (3.5-5.1); Sodium 135 mmol/L (135-145); Total Protein 7.1 g/dl (6.3-8.2); eGFR 49.55
--- NOTE | 2025-04-13 08:31 | EDRN ---
This RN TT'd Radha ACUÑA and dilaudid and another toradol ordered. Dr. Rodriguez is in room w/ pt at this time.
[2025-04-13] MEDS: DILAUDID 0.5 MG IV (08:35)
--- NOTE | 2025-04-13 08:40 | EDRN ---
Radha Kenny PA just in to see pt as well at this time.
--- NOTE | 2025-04-13 08:49 | EDRN ---
POX was 75% w/ good pleth so oxygen was placed on pt at 2lpm via NC. When placing oxygen (pt had been sleeping), pt opened her eyes and POX increased to 96% but left Oxygen in place. Pt also said to this RN 'my pain is still there but did decrease
to 9,' at this time.
--- NOTE | 2025-04-13 09:15 | EDRN ---
Radha ACUÑA was in to speak w/ pt as CT w/ contrast now ordered for pt.
--- NOTE | 2025-04-13 12:19 | EDRN ---
Pt OOB to BR at this time. Pt is awaiting Lipase that was added on post CT results.
--- NOTE | 2025-04-13 12:50 | EDRN ---
Pt OOB to BR and has a urine spec but states pain is now 7/10 at this time. POX 98-99% on RA so oxygen was not replaced after pt returned from BR.
--- NOTE | 2025-04-13 12:58 | EDRN ---
Urine spec obtained and sent. Pt states pain is now 8/10 and climbing.
--- NOTE | 2025-04-13 12:59 | EDRN ---
Radha ACUÑA tt'd about pain 12/08 and urine spec sent to lab a this time.
[2025-04-13 13:06] LABS: Urine Character Clear (Clear)
[2025-04-13 13:08] LABS: Lipase 69 U/L (23-300)
--- NOTE | 2025-04-13 13:12 | EDRN ---
Radha ACUÑA in room w/ pt at this time.
[2025-04-13] MEDS: ROXICODONE 5 MG PO (13:15)
[2025-04-13 13:27] LABS: Urine Squamous Cell 0-2 /LPF (Few)
[2025-04-13 13:28] LABS: Urine White Cell 0-2 /HPF (0-5)
== END 2025-04-13 14:12 | disposition home or self-care (01) ==
LOC: EMR 07:27
PROVIDERS: Physician Assistant; EMERGENCY PHYSICIAN Emergency Medicine; FAMILY PHYSICIAN Physician Assistant Medical
DX: M80.08XA Age-related osteoporosis with current pathological fracture, vertebra(e), initial encounter for fracture (principal); R10.A2 Flank pain, left side; I10 Essential (primary) hypertension; Z86.73 Personal history of transient ischemic attack (TIA), and cerebral infarction without residual deficits; Z90.49 Acquired absence of other specified parts of digestive tract; Z95.810 Presence of automatic (implantable) cardiac defibrillator
CPT/HCPCS: 99284; 96374; 96375; 96376; 74174; 74176; 80053; 81003; 81015; 83690; 85025; Q9967